=== PATIENT | female | born 1965 | race Caucasian/White ===

== ENCOUNTER 2016-12-07 12:13 | Day surgery (SDC) | payer OTHER ==
[2016-12-07 12:28] VITALS: BP 144/82; PULSE 71; RESP 20; TEMP 97.6
[2016-12-07] MEDS ORDERED: ALPRAZolam 0.5 MG TAB PO STA (12:32)
--- NOTE | 2016-12-08 11:25 | US ---
ULTRASOUND GUIDED FNA THYROID BIOPSY: CLINICAL HISTORY: 1.4 cm left thyroid nodule FINDINGS: The procedure was explained to the patient. The risks, complications, benefits and alternatives were discussed and any questions were answered. Informed consent was obtained. Patient was placed supin e on the ultrasound table and prepped and draped in the usual sterile fashion. Utilizing a 25 gauge needle, five passes were made into the requested left thyroid nodule. Patient was stable throughout the procedure. Pathology is pending. All elements of maximal barrier technique were utilized. IMPRESSION: 1. Successful ultrasound guided FNA thyroid biopsy.
== END 2016-12-07 13:40 | disposition home or self-care (01) ==
LOC: RADPROMAIN 12:13
PROVIDERS: ATTEND Surgery
DX: E07.9 Disorder of thyroid, unspecified (principal)
CPT/HCPCS: 10022; 76942; 88173; 88305

== ENCOUNTER → 2017-07-03 | Outpatient (CLI) | payer OTHER ==
--- NOTE | 2017-07-03 12:56 | US ---
EXAMINATION TYPE: US thyroid st tissue head/neck DATE OF EXAM: 07/03/2017 COMPARISON: NONE CLINICAL HISTORY: E04.1 Thyroid nodule. follow up exam, previous FNA GLAND SIZE: Right Lobe: 4.5 x 1.2 x 1.8 cm Overall Parenchyma: homogenous Left Lobe: 4.5 x 1.5 x 1.1 cm Overall Parenchyma: homogeneous Isthmus Thickness: 0.3 cm NODULES RIGHT: # of nodules measured on right: 1 1. 0.6 X 0.5 x 0.3 cm hypoechoic mixed nodule at the upper pole with well-defined margins. This no dule is wider than tall and shows intranodular vascularity. 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 1.0 X 0.9 x 0.5 cm mixed nodule at the mid pole with well-defined margins. This nodule is wider than tall and shows intranodular vascularity. Prior size: 1.3cm - previous FNA 11/2016 ISTHMUS: # of nodules measured in the isthmus: 0 Bilateral neck scanned, no evidence of lymphadenopathy. Thyroid gland is overall normal in size and homogeneous in appearance with redemonstration of solid a nd cystic nodule left thyroid that was aspirated December 07, 2016. No new nodules are seen. IMPRESSION: Previously aspirated mixed left thyroid nodule slightly smaller in size. No new greater than 1 cm rayne id or cystic nodules are evident bilaterally.
== END | disposition home or self-care (01) ==
LOC: RADUSWWP 12:11
PROVIDERS: ATTEND Surgery
DX: E04.1 Nontoxic single thyroid nodule (principal)
CPT/HCPCS: 76536

== ENCOUNTER → 2017-08-11 | Outpatient (CLI) | payer OTHER ==
--- NOTE | 2017-08-11 09:28 | NM ---
Nuclear medicine hepatobiliary scan. HISTORY: Pain. DOSAGE: The patient received 8 ounces of ensure plus and 5.2 mCi of Technetium 99m Choletec. FINDINGS: There is normal hepatic extraction. The gallbladder is seen by 35 minutes. There is bilia ry to bowel clearance by 20 minutes. Ejection fraction is 42%. IMPRESSION: 1. Borderline normal ejection fraction of 42%. Correlate clinically. 2. Normal filling of the gallbladder.
== END | disposition home or self-care (01) ==
LOC: RADNMMAIN 06:48
PROVIDERS: ATTEND Family Medicine
DX: R10.11 Right upper quadrant pain (principal)
CPT/HCPCS: 78226; A9537

== ENCOUNTER 2017-09-20 12:06 | Observation (INO) | payer OTHER ==
[2017-08-29 15:29] VITALS: BMI 22.8
[~2017-09-20 12:06] MED LIST: DEXAMETHASONE SOD PHOSPHATE 10 MG/ML 1 ML VIAL IV ONE; HEPARIN SODIUM,PORCINE 5,000 UNIT/ML 1 ML VIAL SQ ONE; MORPHINE SULFATE 4 MG/ML SYRINGE IV PRN; ONDANSETRON ODT 4 MG TAB PO ONE; ceFAZolin IN SWFI 2 GM/20 ML SYRINGE IVP ONE
[2017-09-20] MEDS ORDERED: RX INFO: IV CONTRAST WAS GIVEN 1 EACH MISC MISCELLANE PRN (12:58)
[2017-09-20] MEDS: LACTATED RINGERS 1,000 ML IV SCH (13:00)
[2017-09-20] MEDS ORDERED: LIDOCAINE 1% 20 ML VIAL (10MG/ML) FOR IV START INTRADERMA ONE (13:00)
[2017-09-20 13:30] LABS: ALT 23 U/L (9-52); AST 27 U/L (14-36); Albumin 4.2 g/dL (3.5-5.0); Alkaline Phosphatase 85 U/L (38-126); Anion Gap 12 mmol/L; Blood Urea Nitrogen 14 mg/dL (7-17); Carbon Dioxide 25 mmol/L (22-30); Chloride 108 mmol/L (98-107); Glucose 98 mg/dL (74-99); Potassium 4.7 mmol/L (3.5-5.1); Sodium 145 mmol/L (137-145); Total Bilirubin 0.5 mg/dL (0.2-1.3); Total Protein 6.7 g/dL (6.3-8.2)
--- NOTE | 2017-09-20 13:38 | P.PN ---
Progress Note - Text Progress Note Date: 09/20/17 The patient was scheduled for laparoscopic cholecystectomy today. The patient stated that she had some confusion and slurred speech at home. The patient's procedure was canceled in the preoperative hold area. Patient underwent workup for a stroke with a CAT scan. She'll be admitted to Dr. pratt service for further evaluation.
[2017-09-20 13:42] LABS: Creatine Kinase 64 U/L (30-135)
--- NOTE | 2017-09-20 13:46 | CT ---
EXAMINATION TYPE: CT brain wo con for TPA DATE OF EXAM: 09/20/2017 COMPARISON: 01/22/2013 HISTORY: Unsteady gait. Slurred speech. CT DLP: 1072.3 mGycm Automated exposure control for dose reduction was used. TECHNIQUE: CT scan of the head is performed without contrast. FINDINGS: There is no acute intracranial hemorrhage, mass effect, or midline shift identified. No suspicious e xtra-axial fluid collection. The ventricles and sulci are within normal limits in size. The globes a re intact. 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 Remaining paranasal sinuses are well aerate d. Incidental note is made of nonocclusive cerumen within the left external auditory canal. Atheroscl erosis is also seen of the intracranial vasculature. IMPRESSION: No acute intracranial process. MRI could be performed for further assessment given the patient's clin ical symptoms.
[2017-09-20 13:56] LABS: Troponin I <0.012 ng/mL (0.000-0.034)
[2017-09-20 13:59] LABS: Creatine Kinase MB 0.5 ng/mL (0.0-2.4)
--- NOTE | 2017-09-20 14:20 | CT ---
EXAMINATION TYPE: CODE STROKE: CTA head neck DATE OF EXAM: 09/20/2017 HISTORY: Unsteady gait and weakness. History of stroke COMPARISON: NONE CT DLP: 221.8 mGycm. Automated Exposure Control for Dose Reduction was Utilized. TECHNIQUE: CTA scan of the neck is performed with IV Contrast, patient injected with 65 mL of Isovue 370, axial images are obtained, coronal and sagittal reformatted images are reviewed. Three-D recons tructed images are created on an independent workstation and reviewed. FINDINGS: Carotid/Vascular Structures: The carotid origins, common carotid arteries, internal carotid arteries, and carotid bulbs are patent without hemodynamically significant stenosis. There is no evidence of f ocal outpouching or dissection. Vertebral arteries are also patent with dominance of the right verteb ral artery. Minimal nonhemodynamically significant plaquing is seen within the cavernous and supraclinoid portion s of the internal carotid arteries. The middle cerebral arteries, anterior cerebral arteries, and pos terior cerebral arteries are unremarkable. No evidence of large vessel vascular occlusion on the righ t. No focal aneurysmal outpouching is seen. No arterial venous malformation is identified. And the M1 segment there is an area of focal stenosis with diminutive flow although the distal branch es appear opacified there is preferential flow on the right in comparison to the left. Diminutive rissa w is seen on series 4 images 14-17. Other: Mild to moderate centrilobular emphysematous changes are seen at the lung apices. Within the c entral posterior nasopharynx there is a low attenuated structure measuring 1.4 x 1.0 cm. 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 IMPRESSION: 1. Focal stenosis of the M1 segment on the left appearing incompletely occlusive as there is very min imal diminutive flow seen with opacification of the distal branches although opacification is less wi thin the left hemisphere than the right hemisphere in the distal branches of the MCA. 2. 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 Direct visualization could be performed.
[2017-09-20 14:57] LABS: Basophils % (A) 0 %; Eosinophils # (A) 0.1 k/uL (0-0.7); Eosinophils % (A) 2 %; HCT 39.5 % (34.0-46.0); HGB 12.6 gm/dL (11.4-16.0); Lymphocytes # (A) 2.2 k/uL (1.0-4.8); Lymphocytes % (A) 37 %; MCV 90.7 fL (80.0-100.0); Mean Platelet Volume 7.9; Monocytes # (A) 0.3 k/uL (0-1.0); Monocytes % (A) 6 %; Neutrophils # (A) 3.2 k/uL (1.3-7.7); Neutrophils % (A) 53 %; Platelet Count 165 k/uL (150-450); RBC 4.35 m/uL (3.80-5.40); RDW 13.4 % (11.5-15.5)
[2017-09-20 14:58] LABS: Prothrombin Time 10.1 sec (9.0-12.0)
[2017-09-20] MEDS: HYDROcodone/APAP 10-325MG 1 EACH TAB PO PRN ×2 (16:28→21:47)
--- NOTE | 2017-09-20 17:15 | P.GSCN ---
History of Present Illness Consult date: 09/20/17 History of present illness: This a 52-year-old female who was rigid scheduled for laparoscopic cholecystectomy today. The patient mentioned preop that she thought she may have slurred some word this morning. Her seizure was canceled and the patient was evaluated for possible stroke. The patient's CAT scan of the brain is normal. She appears to be her normal self currently. She has no evidence of any neurologic weakness. She is alert and orientated 3. Past Medical History Past Medical History: CVA/TIA, GERD/Reflux, Hyperlipidemia, Seizure Disorder, Thyroid Disorder, Vascular Disorder Additional Past Medical History / Comment(s): CVA "several last march", Chronic back pain,. last seizure 04/14,PVD,"lt cerebral artery 100%" 09/20/17 PT STATES THIS AM GAIT SL UNSTEADY WALKED INTO A WALL SPEECH WAS NOT NORMAL THIS AM WORDS NOT COMING OUT RIGHT NO HEADACHE BUT HEAD FEELS A LITTLE FOGGY History of Any Multi-Drug Resistant Organisms: None Reported Past Surgical History: No Surgical Hx Reported Additional Past Surgical History / Comment(s): stents merly iliac artery 07/16. EGD Past Anesthesia/Blood Transfusion Reactions: Family History of Problems w/ Anesthesia Additional Past Anesthesia/Blood Transfusion Reaction / Comm: sister shakes with anesthesia for several days after Past Psychological History: Anxiety, Depression Smoking Status: Current every day smoker Past Alcohol Use History: Rare Additional Past Alcohol Use History / Comment(s): smoker for 30 years attempting to quit smoking 4 cig/d Past Drug Use History: Marijuana Additional Drug Use History / Comment(s): rare marijuana use- INSTRUCTED TO REFRAIN FROM USE FOR AT LEAST 24 HOURS PRIOR TO PROCEDURE - Past Family History Father Family Medical History: Cancer Additional Family Medical History / Comment(s): lung cancer Mother Family Medical History: Cancer, CVA/TIA Sister(s) Family Medical History: Cancer, Deep Vein Thrombosis (DVT), Pulmonary Embolus Additional Family Medical History / Comment(s): breast cancer Brother(s) Family Medical History: Cancer Additional Family Medical History / Comment(s): prostate cancer Medications and Allergies Home Medications Medication Instructions Recorded Confirmed Type Aspirin 81 mg PO DAILY 11/24/16 09/20/17 History Atorvastatin [Lipitor] 80 mg PO DAILY 11/24/16 09/20/17 History Clopidogrel [Plavix] 75 mg PO BID 11/24/16 09/20/17 History HYDROcodone/APAP 10-325MG [[place] 1 tab PO Q6H PRN 11/24/16 09/20/17 History 10-325] Ranitidine HCl [Zantac] 150 mg PO BID 11/24/16 09/20/17 History levETIRAcetam [Keppra] 500 mg PO Q12HR 11/24/16 09/20/17 History Docusate [Colace] 100 mg PO BID #20 capsule 09/20/17 Rx HYDROcodone/APAP 7.5-325MG [[place] 1 each PO Q4H PRN #30 tab 09/20/17 Rx 7.5] Allergies Allergy/AdvReac Type Severity Reaction Status Date / Time prochlorperazine Allergy Unknown Verified 09/20/17 14:19 [From Compazine] Surgical - Exam Vital Signs Temp Pulse Resp BP Pulse Ox 97.5 F L 73 18 141/84 99 09/20/17 12:35 09/20/17 12:35 09/20/17 12:35 09/20/17 12:35 09/20/17 12:35 - General well developed, no distress - Eyes PERRL - ENT normal pinna - Neck no masses - Respiratory normal expansion - Cardiovascular Rhythm: regular - Abdomen Abdomen: soft, non tender Results - Labs 09/20/17 14:33 09/20/17 13:02 Abnormal Lab Results - Last 24 Hours (Table) 09/20/17 Range/Units 13:02 Chloride 108 H (98-107) mmol/L Diabetes panel 09/20/17 Range/Units 13:02 Sodium 145 (137-145) mmol/L Potassium 4.7 (3.5-5.1) mmol/L Chloride 108 H (98-107) mmol/L Carbon Dioxide 25 (22-30) mmol/L BUN 14 (7-17) mg/dL Creatinine 0.60 (0.52-1.04) mg/dL Glucose 98 (74-99) mg/dL Calcium 10.0 (8.4-10.2) mg/dL AST 27 (14-36) U/L ALT 23 (9-52) U/L Alkaline Phosphatase 85 (38-126) U/L Total Protein 6.7 (6.3-8.2) g/dL Albumin 4.2 (3.5-5.0) g/dL Calcium panel 09/20/17 Range/Units 13:02 Calcium 10.0 (8.4-10.2) mg/dL Albumin 4.2 (3.5-5.0) g/dL Pituitary panel 09/20/17 Range/Units 13:02 Sodium 145 (137-145) mmol/L Potassium 4.7 (3.5-5.1) mmol/L Chloride 108 H (98-107) mmol/L Carbon Dioxide 25 (22-30) mmol/L BUN 14 (7-17) mg/dL Creatinine 0.60 (0.52-1.04) mg/dL Glucose 98 (74-99) mg/dL Calcium 10.0 (8.4-10.2) mg/dL Adrenal panel 09/20/17 Range/Units 13:02 Sodium 145 (137-145) mmol/L Potassium 4.7 (3.5-5.1) mmol/L Chloride 108 H (98-107) mmol/L Carbon Dioxide 25 (22-30) mmol/L BUN 14 (7-17) mg/dL Creatinine 0.60 (0.52-1.04) mg/dL Glucose 98 (74-99) mg/dL Calcium 10.0 (8.4-10.2) mg/dL Total Bilirubin 0.5 (0.2-1.3) mg/dL AST 27 (14-36) U/L ALT 23 (9-52) U/L Alkaline Phosphatase 85 (38-126) U/L Total Protein 6.7 (6.3-8.2) g/dL Albumin 4.2 (3.5-5.0) g/dL Assessment and Plan Assessment: Chronic cholecystitis. Patient will be evaluated by the medical service. If she is cleared she will undergo laparoscopic cholecystectomy in the a.m.
--- NOTE | 2017-09-20 17:37 | P.HPIM ---
History of Present Illness H&P Date: 09/20/17 Micki Tsang is a 52 year old female patient of Dr Kiera Porter, who presented to [facility] for elective surgery for laparoscopic cholecystectomy on 09/20/[address] Joseph, prior to surgery however patient notified the staff in the preoperative area that this morning she had an episode of slurred speech with difficulty getting words out, dizziness, and bouncing with her gait, surgery was canceled, code stroke was started, patient underwent computed tomography scan of the brain and was admitted to telemetry floor for further evaluation. 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 Patient also stated that she started having seizures 5 years ago, her last seizure was one year ago, she is maintained on Keppra for that. Patient has known history of hyperlipidemia and she is maintained on Lipitor 80 mg once daily. She is also a smoker she smokes less than a pack a day she states that she started smoking at the teenager. Past Medical History Past Medical History: CVA/TIA, GERD/Reflux, Hyperlipidemia, Seizure Disorder, Thyroid Disorder, Vascular Disorder Additional Past Medical History / Comment(s): CVA "several last march", Chronic back pain,. last seizure 04/14,PVD,"lt cerebral artery 100%" 09/20/17 PT STATES THIS AM GAIT SL UNSTEADY WALKED INTO A WALL SPEECH WAS NOT NORMAL THIS AM WORDS NOT COMING OUT RIGHT NO HEADACHE BUT HEAD FEELS A LITTLE FOGGY History of Any Multi-Drug Resistant Organisms: None Reported Past Surgical History: No Surgical Hx Reported Additional Past Surgical History / Comment(s): stents merly iliac artery 07/16. EGD Past Anesthesia/Blood Transfusion Reactions: Family History of Problems w/ Anesthesia Additional Past Anesthesia/Blood Transfusion Reaction / Comment(s): sister shakes with anesthesia for several days after Past Psychological History: Anxiety, Depression Smoking Status: Current every day smoker Past Alcohol Use History: Rare Additional Past Alcohol Use History / Comment(s): smoker for 30 years attempting to quit smoking 4 cig/d Past Drug Use History: Marijuana Additional Drug Use History / Comment(s): rare marijuana use- INSTRUCTED TO REFRAIN FROM USE FOR AT LEAST 24 HOURS PRIOR TO PROCEDURE - Past Family History Father Family Medical History: Cancer Additional Family Medical History / Comment(s): lung cancer Mother Family Medical History: Cancer, CVA/TIA Sister(s) Family Medical History: Cancer, Deep Vein Thrombosis (DVT), Pulmonary Embolus Additional Family Medical History / Comment(s): breast cancer Brother(s) Family Medical History: Cancer Additional Family Medical History / Comment(s): prostate cancer Medications and Allergies Home Medications Medication Instructions Recorded Confirmed Type Aspirin 81 mg PO DAILY 11/24/16 09/20/17 History Atorvastatin [Lipitor] 80 mg PO DAILY 11/24/16 09/20/17 History Clopidogrel [Plavix] 75 mg PO BID 11/24/16 09/20/17 History HYDROcodone/APAP 10-325MG [[place] 1 tab PO Q6H PRN 11/24/16 09/20/17 History 10-325] Ranitidine HCl [Zantac] 150 mg PO BID 11/24/16 09/20/17 History levETIRAcetam [Keppra] 500 mg PO Q12HR 11/24/16 09/20/17 History Docusate [Colace] 100 mg PO BID #20 capsule 09/20/17 Rx HYDROcodone/APAP 7.5-325MG [[place] 1 each PO Q4H PRN #30 tab 09/20/17 Rx 7.5] Allergies Allergy/AdvReac Type Severity Reaction Status Date / Time prochlorperazine Allergy Unknown Verified 09/20/17 14:19 [From Compazine] Physical Exam Vitals: Vital Signs Temp Pulse Resp BP Pulse Ox 09/20/17 16:00 71 18 09/20/17 13:54 97.1 F L 71 18 140/81 98 09/20/17 12:43 76 18 143/88 99 09/20/17 12:35 97.5 F L 73 18 141/84 99 Intake and Output 09/20/17 09/20/17 09/20/17 06:59 14:59 22:59 Output Total 300 Balance -300 Output: Urine 300 Other: Weight 56.699 kg In general patient is alert and oriented 3 in no apparent distress HEENT head normocephalic and atraumatic Neck is supple no JVD no goiter no lymphadenopathy no carotid bruit Chest exam reveals a few scattered crackles no wheezing Cardiac exam reveals regular heart sounds S1 and S2 no gallops no murmurs Abdomen is soft nontender no organomegaly with normal bowel sounds Extremity exam reveals no edema no cyanosis or clubbing Neurological examination reveals no gross focal deficit at this time Mental status patient is alert and oriented 3 cranial nerve II-12 are intact there is no focal sensory or motor deficit at this time speech is fluent Results CBC & Chem 7: 09/20/17 14:33 09/20/17 13:02 Labs: Abnormal Lab Results - Last 24 Hours (Table) 09/20/17 Range/Units 13:02 Chloride 108 H (98-107) mmol/L Thrombosis Risk Factor Assmnt - Choose All That Apply Each Factor Represents 1 point: Age 41-60 years, Minor surgery planned Each Risk Factor Represents 2 Points: Laparoscopic surgery Each Risk Factor Represents 3 Points: Family history of DVT/PE Thrombosis Risk Factor Assessment Total Risk Factor Score: 7 Thrombosis Risk Factor Assessment Level: High Risk Assessment and Plan Plan: #1 transient ischemic attack with symptoms of slurred speech and unsteady gait lasting about 1 minute this morning #2 underlying history of partially occluded intracranial artery, CT angiogram was done today and reveals stenosis in the M1 segments on the left, patient follows with neurosurgery in [place] every 6 months for this condition, and she was told that there is no intervention at amenable for that. #3 underlying history of seizure disorder maintained on Keppra #4 tobacco abuse patient was counseled in length to quit smoking #5 hyperlipidemia maintained on Lipitor 80 mg daily continue #6 cholecystitis patient presented for laparoscopic cholecystectomy, this is delayed at this time until she is cleared by neurology At this time will continue patient on aspirin and Lipitor Will continue his Keppra for seizure disorder Will monitor on telemetry to rule out atrial fibrillation Will check echo cardiogram Awaiting neurology input
[2017-09-20] MEDS: levETIRAcetam 500 MG TAB PO SCH (19:58)
[2017-09-20] MEDS: FAMOTIDINE 20 MG TAB PO SCH (19:58)
[2017-09-20] MEDS: CLOPIDOGREL 75 MG TAB PO SCH (20:04)
--- NOTE | 2017-09-20 21:07 | P.CNNES ---
History of Present Illness Consult date: 09/20/17 Reason for Consult: Patient with acute onset slurred speech and TIA vs. stroke. History of Present Illness: This patient is a 52-year-old right-handed white female who is being followed in the outpatient internal medicine clinic by Dr. Porter. Patient has known history of multiple complex medical issues including history of stroke and intracerebral vascular occlusive disease. Patient also has history of underlying seizure disorder. She has been taking Keppra monotherapy. Patient apparently was scheduled for an elective cholecystectomy procedure this morning. She awoke as usual in the morning at about 8 AM and was noted as having difficulty with weakness as well as balance issues. She also tried to talk and noticed that she was having slurring of her speech. She had word finding difficulties as well. She was able to contact family members who noted that she was having clearly some slurring of her speech. She was unable to ambulate and was bouncing into the balls at home. The patient had been taking Plavix and aspirin on a regular basis but due to scheduled surgery today she discontinued both of these medications for the past 7 days. She decided to have her family member bring her to the hospital for the scheduled surgery today. Apparently in the preop area she did mention to the nursing staff there that her symptoms occurred early this morning including dizziness, unsteady gait , and slurred speech. Apparently she was also noted to have left facial droop. At this time a code stroke was initiated and she was sent for any emergent computed tomography scan of the brain and CTA angiogram of the head and neck. Computed tomography scan of the brain revealed no acute intracranial process. There is no evidence of acute stroke. CTA angiogram of the head and neck revealed focal stenosis of the M1 segment on the left MCA artery. It was incompletely occlusive. There was diminished flow and opacification in the distal branches left being less than the right hemisphere. There was also low density structure in the posterior nasopharynx suggesting possibility of a Thornwaldt cyst. We did review the results of her CAT scan of the brain as well as a CTA angiogram. The patient estimates this morning her symptoms of TIA had lasted at least 4-5 hours. In fact while coming into the hospital for her elective cholecystectomy she is still had slurring of her speech in [place]. The code stroke was initiated and her scheduled laparoscopic cholecystectomy was canceled. The patient does follow with a neurosurgeon in [place] every [address] Arenas. She is being followed closely for her known intracranial stenotic lesion. She is not felt to be a surgical candidate. She also has a history of underlying seizure disorder for which she has been taking Keppra for the past many years. She is currently on Keppra 500 mg twice a day. We have recommended a Keppra blood level to be done for her tomorrow morning. We will also obtain a routine EEG. Her clinical findings do not suggest her symptoms today were related to seizure disorder. Her clinical history is suggesting more definitive findings for TIA. Her speech is much improved at this time. The clearly her onset and duration of symptoms this morning lasted over 4-5 hours. Given this finding of recent TIA and known history of intracranial arteriosclerotic stenosis and lesion we are recommending that her planned elective cholecystectomy procedure be canceled and placed on hold until she is reevaluated by her neurosurgeon in [place] for his further recommendations. Given this acute TIA findings today she should consider restarting her Plavix immediately as we are recommending her planned cholecystectomy procedure be placed on hold at this time until she is seen by her neurosurgeon in [place] in the next 1-2 weeks. The patient was very resistant about restarting Plavix at this time stating that she would like to get the procedure over that she has been off of Plavix and aspirin for 7 days. Clearly her being off of the antiplatelet agents and dual platelet therapy with aspirin has increased her risk of TIA today. We would recommend she be restarted on both Plavix and aspirin today and to discuss with her neurosurgeon whether I reattempt to take her off of the antiplatelet agents can be done at a later time. Her neurological examination at this time reveals her to have clear speech with no focal motor weakness. As noted her CAT scan of the brain was negative. We have discussed our current neurological findings in detail with the patient. She was advised to follow-up with her neurosurgeon in [place] as soon as she is discharged from the hospital. This case was also discussed today at length with Dr. Dr. Coburn who is seen admitting physician for this patient today. He is in full agreement with our current recommendations and to postpone any surgical intervention for cholecystectomy for this patient at this time. Nursing staff has been advised to notify Dr. Quarles office today of our recommendations to postpone any elective surgery for this patient until she is reevaluated by her neurosurgeon in [place]. We have given orders for the nursing staff to restart the patient tonight on Plavix 75 mg daily as well as one baby aspirin 81 mg daily. Neurology is now been consulted for further evaluation and recommendations. Review of Systems Constitutional: Denies chills, Denies fever Eyes: denies blurred vision, denies pain Ears, nose, mouth and throat: Denies headache, Denies sore throat Cardiovascular: Denies chest pain, Denies shortness of breath Respiratory: Denies cough Gastrointestinal: Denies abdominal pain, Denies diarrhea, Denies nausea, Denies vomiting Genitourinary: Denies dysuria, Denies hematuria Musculoskeletal: Denies myalgias Integumentary: Denies pruritus, Denies rash Neurological: Reports aphasia, Reports change in mentation, Reports change in speech, Reports confusion, Reports motor disturbance, Reports paresthesias, Reports tingling, Denies numbness, Denies weakness Psychiatric: Denies anxiety, Denies depression Endocrine: Denies fatigue, Denies weight change Past Medical History Past Medical History: CVA/TIA, GERD/Reflux, Hyperlipidemia, Seizure Disorder, Thyroid Disorder, Vascular Disorder Additional Past Medical History / Comment(s): CVA "several last march", Chronic back pain,. last seizure 04/14,PVD,"lt cerebral artery 100%" 09/20/17 PT STATES THIS AM GAIT SL UNSTEADY WALKED INTO A WALL SPEECH WAS NOT NORMAL THIS AM WORDS NOT COMING OUT RIGHT NO HEADACHE BUT HEAD FEELS A LITTLE FOGGY History of Any Multi-Drug Resistant Organisms: None Reported Past Surgical History: No Surgical Hx Reported Additional Past Surgical History / Comment(s): stents merly iliac artery 07/16. EGD Past Anesthesia/Blood Transfusion Reactions: Family History of Problems w/ Anesthesia Additional Past Anesthesia/Blood Transfusion Reaction / Comment(s): sister shakes with anesthesia for several days after Past Psychological History: Anxiety, Depression Smoking Status: Current every day smoker Past Alcohol Use History: Rare Additional Past Alcohol Use History / Comment(s): smoker for 30 years attempting to quit smoking 4 cig/d Past Drug Use History: Marijuana Additional Drug Use History / Comment(s): rare marijuana use- INSTRUCTED TO REFRAIN FROM USE FOR AT LEAST 24 HOURS PRIOR TO PROCEDURE - Past Family History Father Family Medical History: Cancer Additional Family Medical History / Comment(s): lung cancer Mother Family Medical History: Cancer, CVA/TIA Sister(s) Family Medical History: Cancer, Deep Vein Thrombosis (DVT), Pulmonary Embolus Additional Family Medical History / Comment(s): breast cancer Brother(s) Family Medical History: Cancer Additional Family Medical History / Comment(s): prostate cancer Medications and Allergies Home Medications Medication Instructions Recorded Confirmed Type Aspirin 81 mg PO DAILY 11/24/16 09/20/17 History Atorvastatin [Lipitor] 80 mg PO DAILY 11/24/16 09/20/17 History Clopidogrel [Plavix] 75 mg PO BID 11/24/16 09/20/17 History HYDROcodone/APAP 10-325MG [[place] 1 tab PO Q6H PRN 11/24/16 09/20/17 History 10-325] Ranitidine HCl [Zantac] 150 mg PO BID 11/24/16 09/20/17 History levETIRAcetam [Keppra] 500 mg PO Q12HR 11/24/16 09/20/17 History Docusate [Colace] 100 mg PO BID #20 capsule 09/20/17 Rx HYDROcodone/APAP 7.5-325MG [[place] 1 each PO Q4H PRN #30 tab 09/20/17 Rx 7.5] Allergies Allergy/AdvReac Type Severity Reaction Status Date / Time prochlorperazine Allergy Unknown Verified 09/20/17 14:19 [From Compazine] Physical Examination - Vital Signs Vital Signs: Vital Signs Temp Pulse Resp BP Pulse Ox 09/20/17 16:00 71 18 09/20/17 13:54 97.1 F L 71 18 140/81 98 09/20/17 12:43 76 18 143/88 99 09/20/17 12:35 97.5 F L 73 18 141/84 99 Intake and Output 09/20/17 09/20/17 09/20/17 06:59 14:59 22:59 Output Total 300 Balance -300 Output: Urine 300 Other: Weight 56.699 kg - Constitutional General appearance: average body habitus, cooperative - EENT EENT: PERRL, mucous membranes moist - Respiratory Respiratory: lungs clear, normal breath sounds - Cardiovascular Cardiovascular: regular rate, normal S1, normal S2 Extremities: no peripheral edema bilaterally - Gastrointestinal Gastrointestinal: normoactive bowel sounds - Integumentary Integumentary: normal - Neurologic Cranial nerve examination: PERRL, EOMI, VFF, V1/V2/V3 grossly intact, face symmetric, tongue midline, intact gag reflex, intact corneal reflex, normal palatal elevation Speech examination: intact Sensorimotor examination: intact Motor examination - right side: 4/5: biceps, triceps, wrist flexion, wrist extension, software engineer, hip flexors, knee extensors, dorsiflexion, toe extension (EHL) , plantarflexion Motor examination - left side: 4/5: biceps, triceps, wrist flexion, wrist extension, software engineer, hip flexors, knee extensors, dorsiflexion, toe extension (EHL) , plantarflexion Detailed sensory examination: intact Reflex and gait examination: intact Reflexes: 1+: ankle, bicep, knee, tricep - Musculoskeletal Musculoskeletal: no pain - Psychiatric Psychiatric: mood/affect appropriate, cooperative Results - Laboratory Findings CBC and BMP: 09/20/17 14:33 09/20/17 13:02 Abnormal Lab Findings: Abnormal Labs 09/20/17 13:02 Chloride 108 H Assessment and Plan (1) TIA (transient ischemic attack) Current Visit: Yes Status: Acute Code(s): G45.9 - TRANSIENT CEREBRAL ISCHEMIC ATTACK, UNSPECIFIED SNOMED Code(s): 364733809 (2) Intracranial arteriopathy, chronic Current Visit: Yes Status: Acute Code(s): I77.9 - DISORDER OF ARTERIES AND ARTERIOLES, UNSPECIFIED SNOMED Code(s): 533396585 (3) Seizure disorder Current Visit: Yes Status: Acute Code(s): G40.909 - EPILEPSY, UNSP, NOT INTRACTABLE, WITHOUT STATUS EPILEPTICUS SNOMED Code(s): 666182510 (4) Cholecystitis Current Visit: Yes Status: Acute Code(s): K81.9 - CHOLECYSTITIS, UNSPECIFIED SNOMED Code(s): 07555005 Plan: This patient is a 52-year-old female who awoke early this morning with symptoms of acute and recurrent TIA. Patient had symptoms of slurred speech, dizziness, and unsteady gait. Her entire symptoms lasted at least 4-5 hours this morning. She had been off of Plavix and aspirin for 7 days in anticipation of elective endoscopic cholecystectomy procedure to be done today. She was in the admitting office and in the preop holding area when she had mentioned her symptoms to the nursing staff. She was complaining of some slurred speech just prior to coming to the hospital. Her clinical history that she is given clearly indicates she was having symptoms of TIA for at least 4-5 hours. Her planned elective cholecystectomy procedure was canceled. A code stroke was initiated and she was sent for a computed tomography scan of the brain and CTA angiogram of the head and neck. Both of these studies were reviewed and results are as noted above. We have recommended the patient to cancel any planned elective cholecystectomy procedure at this time. She is to follow-up with her neurosurgeon in [place] who is monitoring her known history of intracranial arterial stenotic lesion. She has been off of Plavix and aspirin and this may have contributed today to her TIA symptoms. She has had history of recurrent TIAs over the last 1 year. We would recommend that the planned surgery be canceled at this time and the patient should be restarted on Plavix and aspirin today for secondary stroke prevention. Case was discussed today with Dr. Coburn her admitting physician who is in full agreement with our current recommendations. Patient should follow-up with her neurosurgeon in [place] in regards to when or if she is capable of having surgical procedure coming off of her antiplatelet agents. We will continue close neurological follow-up for the patient. We will check her Keppra level tomorrow as well. Once again we are recommending she be restarted on Plavix and aspirin tonight and she should follow-up with her neurosurgeon in [place] soon after discharge from the hospital for his further evaluation and recommendations. Her overall prognosis at this time remains very guarded. Time with Patient: Greater than 30
[2017-09-21] MEDS: HYDROcodone/APAP 10-325MG 1 EACH TAB PO PRN ×2 (04:04→10:53)
[2017-09-21 06:46] LABS: Cholesterol 208 mg/dL (<200); HDL Cholesterol 58 mg/dL (40-60); LDL Cholesterol,Calculated 135 mg/dL (0-99); Triglycerides 75 mg/dL (<150)
[2017-09-21] MEDS: FAMOTIDINE 20 MG TAB PO SCH (07:51)
[2017-09-21] MEDS: levETIRAcetam 500 MG TAB PO SCH (07:51)
[2017-09-21] MEDS: LACTATED RINGERS 1,000 ML IV SCH (07:52)
[2017-09-21] MEDS ORDERED: ATORVASTATIN 80 MG TAB PO SCH (09:00)
[2017-09-21] MEDS: ASPIRIN 81 MG PO SCH ×2 (10:00→10:53)
[2017-09-21] MEDS: CLOPIDOGREL 75 MG TAB PO SCH ×2 (10:00→10:53)
[2017-09-21 12:51] VITALS: BP 110/60; PULSE 67; RESP 16; TEMP 98.2
--- NOTE | 2017-09-21 13:40 | P.DS ---
Providers Date of admission: 09/20/17 13:49 Expected date of discharge: 09/21/17 Attending physician: Felipe Coburn Consults: 09/20/17 14:12 Consult Physician Stat Consulting Provider: Carlos Quarles Consult Reason/Comments: surgery Do you want consulting provider notified?: Yes 09/20/17 14:13 Consult Physician Stat Consulting Provider: Tom Geiger Consult Reason/Comments: code stroke Do you want consulting provider notified?: Yes Primary care physician: Kiera Porter [place] [facility] Course: #1 transient ischemic attack with symptoms of slurred speech and unsteady gait lasting about 1 minute this morning. Patient will need echo and outpatient setting #2 underlying history of partially occluded intracranial artery, CT angiogram was done today and reveals stenosis in the M1 segments on the left, patient follows with neurosurgery in [place] every 6 months for this condition, and she was told that there is no intervention at [facility] for that. #3 underlying history of seizure disorder maintained on Keppra #4 tobacco abuse patient was counseled in length to quit smoking for greater than 10 minutes #5 hyperlipidemia maintained on Lipitor 80 mg daily continue #6 cholecystitis patient presented for laparoscopic cholecystectomy: Surgery canceled because of TIA Hospital course Micki Tsang is a 52 year old female patient of Dr Kiera Porter, who presented to [facility] for elective surgery for laparoscopic cholecystectomy on 09/20/[address] Joseph, prior to surgery however patient notified the staff in the preoperative area that this morning she had an episode of slurred speech with difficulty getting words out, dizziness, and bouncing with her gait, surgery was canceled, code stroke was started, patient underwent computed tomography scan of the brain and was admitted to telemetry floor for further evaluation. Patient states that she had multiple TIAs in the past this started 5 years ago, she also had multiple seizures in the past, she was evaluated by neurology and neurosurgery, she states that she had a partially occluded artery in her brain, for which she follows with the neurosurgeon in [place], who told her that there is no intervention and [facility] for her condition, and that she had developed some collaterals, she continues to follow was neurosurgeon every 6 month. Patient also stated that she started having seizures 5 years ago, her last seizure was one year ago, she is maintained on Keppra for that. Patient has known history of hyperlipidemia and she is maintained on Lipitor 80 mg once daily. She is also a smoker she smokes less than a pack a day she states that she started smoking at the teenager. Patient was seen evaluated by Dr. Geiger, the neurologist. He is recommending that patient be restarted on her aspirin and Plavix for secondary stroke prevention. Is likely patient had a TIA because she was taken off of the aspirin and Plavix. At this time he is also recommending that surgery be canceled. Patient understands the risks that she could have a stroke. Neurology is recommending that patient follow-up with her neurosurgeon in [place] and soon after discharge from the hospital for further evaluation and recommendations. Patient is stable. Her symptoms have resolved. She also will follow-up with Dr. Ortiz in 1 week. We'll have her follow-up with her PCP in 1 week. Also note that patient does need an echo completed in the outpatient setting. I performed an examination of the patient and discussed their management with the physician Twister Frame Tender. I have reviewed the Physician Twister Frame Tender's notes and agree with the documented findings and plan of care Patient Condition at Discharge: Stable Plan - Discharge Summary Discharge Rx Participant: Yes New Discharge Prescriptions: New Docusate [Colace] 100 mg PO BID #20 capsule HYDROcodone/APAP 7.5-325MG [[place] 7.5] 1 each PO Q4H PRN #30 tab PRN Reason: Pain Continue Ranitidine HCl [Zantac] 150 mg PO BID levETIRAcetam [Keppra] 500 mg PO Q12HR Atorvastatin [Lipitor] 80 mg PO DAILY Aspirin 81 mg PO DAILY Clopidogrel [Plavix] 75 mg PO BID Discontinued HYDROcodone/APAP 10-325MG [[place] 10-325] 1 tab PO Q6H PRN PRN Reason: Pain Discharge Medication List Aspirin 81 mg PO DAILY 11/24/16 [History] Atorvastatin [Lipitor] 80 mg PO DAILY 11/24/16 [History] Clopidogrel [Plavix] 75 mg PO BID 11/24/16 [History] Ranitidine HCl [Zantac] 150 mg PO BID 11/24/16 [History] levETIRAcetam [Keppra] 500 mg PO Q12HR 11/24/16 [History] Docusate [Colace] 100 mg PO BID #20 capsule 09/20/17 [Rx] HYDROcodone/APAP 7.5-325MG [[place] 7.5] 1 each PO Q4H PRN #30 tab 09/20/17 [Rx] Follow up Appointment(s)/Referral(s): Carlos Quarles MD [STAFF PHYSICIAN] - 1 Week Kiera Porter DO [Primary Care Provider] - 1 Week Patient Instructions/Handouts: *Surgery [facility] - Laparoscopic Cholecystectomy Discharge Instructions Activity/Diet/Wound Care/Special Instructions: Patient is to follow-up with her neurosurgeon as soon as possible Diet: Low-fat Activity as tolerated Patient has been educated that she needs to quit smoking Discharge Disposition: HOME SELF-CARE
--- NOTE | 2017-09-22 11:49 | EEG ---
ELECTROENCEPHALOGRAM REPORT DATE OF EE09/21/2017 REFERRING PHYSICIAN: Dr. Coburn CONSULTING AND INTERPRETING PHYSICIAN: Dr. Sierra Geiger MD ELECTROENCEPHALOGRAPHIC EXAMINATION REPORT: INDICATION FOR EXAMINATION: This patient is a 52-year-old female being evaluated for acute stroke-like symptoms. Patient admitted for elective cholecystectomy and developed symptoms of acute TIA and stroke. Patient has history of underlying seizure disorder in the past. AGE: 52 EEG FINDINGS: A routine 21 channel awake digital EEG recording was accomplished utilizing the 10-20 international system with bipolar and referential montages. The background activity in the most alert resting state consists of a low to medium amplitude, fairly well- developed and well sustained 8-9 hertz activity over the posterior head regions. This posterior rhythm attenuates to eye opening. There is a small amount of low amplitude 18-20 Hz beta activity seen maximally over the anterior head regions. Muscle and movement artifact was observed on a few occasions during the tracing. Hyperventilation was not performed. Photic stimulation at flash frequencies of 2-30 Hz produced a good symmetrical occipital driving response. No epileptiform discharges were seen. IMPRESSION: This EEG is within normal limits for the patient's age. The EEG failed to reveal any focal, lateralized, or epileptiform abnormalities. Clinical correlation is recommended. MMODL / IJN: [id number] /
== END 2017-09-21 14:44 | disposition home or self-care (01) ==
LOC: OR 12:06 → 6SEL 13:49 → INTOOBSV 13:49 → UNDODISIN 09-21 14:44
PROVIDERS: ADMIT Internal Medicine; ATTEND Internal Medicine
DX: G45.9 Transient cerebral ischemic attack, unspecified (principal); Z53.09 Procedure and treatment not carried out because of other contraindication; I66.8 Occlusion and stenosis of other cerebral arteries; E78.5 Hyperlipidemia, unspecified; K21.9 Gastro-esophageal reflux disease without esophagitis; F17.210 Nicotine dependence, cigarettes, uncomplicated; G40.909 Epilepsy, unspecified, not intractable, without status epilepticus; M54.9 Dorsalgia, unspecified; G89.29 Other chronic pain; F32.9 Major depressive disorder, single episode, unspecified; F41.9 Anxiety disorder, unspecified; I73.9 Peripheral vascular disease, unspecified; K81.1 Chronic cholecystitis; E07.9 Disorder of thyroid, unspecified; F12.90 Cannabis use, unspecified, uncomplicated; Z79.02 Long term (current) use of antithrombotics/antiplatelets; Z79.82 Long term (current) use of aspirin; Z79.899 Other long term (current) drug therapy; Z88.8 Allergy status to other drugs, medicaments and biological substances; Z86.73 Personal history of transient ischemic attack (TIA), and cerebral infarction without residual deficits; Z80.1 Family history of malignant neoplasm of trachea, bronchus and lung; Z80.3 Family history of malignant neoplasm of breast; Z82.3 Family history of stroke; Z83.2 Family history of diseases of the blood and blood-forming organs and certain disorders involving the immune mechanism; Z82.49 Family history of ischemic heart disease and other diseases of the circulatory system; Z84.89 Family history of other specified conditions
CPT/HCPCS: 95819; 97162; 97165; 80061; 80053; 80177; 82550; 82553; 84484; 85025; 85610; 70496; 70450; 70498; G0378 ×2; Q9967

== ENCOUNTER → 2017-10-04 | Outpatient (CLI) | payer OTHER ==
--- NOTE | 2017-10-06 10:15 | MM ---
Reason for exam: screening (asymptomatic). Last mammogram was performed 5 years and 2 months ago. History: Family history of breast cancer in mother at age 55, breast cancer in maternal grandmother at age 50, and breast cancer in paternal aunt at age 60. Left US Cyst Aspiration of the left breast, August 03, 2005. Physical Findings: A clinical breast exam by your physician is recommended on an annual basis and results should be correlated with mammographic findings. MG Screening Mammo w CAD Bilateral CC and MLO view(s) were taken. Prior study comparison: July 24, 2012, bilateral digital screening mammo w/CAD. March 06, 2009, bilateral diagnostic digital mammog. The breast tissue is heterogeneously dense. This may lower the sensitivity of mammography. There is no discrete abnormality. No significant changes when compared with prior studies. ASSESSMENT: Negative, BI-RAD 1 RECOMMENDATION: Routine screening mammogram of both breasts in 1 year.
== END | disposition home or self-care (01) ==
LOC: RADMAMWWP 11:51
PROVIDERS: ATTEND Obstetrics & Gynecology
DX: Z12.31 Encounter for screening mammogram for malignant neoplasm of breast (principal)
CPT/HCPCS: 77067

== ENCOUNTER 2018-01-28 20:56 | Emergency (ER) | payer OTHER ==
[2018-01-28 21:01] VITALS: RESP 16
[2018-01-28] MEDS ORDERED: ONDANSETRON 4 MG/2 ML VIAL IVP STA (21:25)
[2018-01-28] MEDS ORDERED: SODIUM CHLORIDE 0.9% 1,000 ML IV STA (21:25)
[2018-01-28] MEDS ORDERED: KETOROLAC 30 MG/ML 1 ML VIAL IVP STA (21:25)
--- NOTE | 2018-01-28 21:39 | ED ---
Abdominal Pain HPI - General Chief Complaint: Abdominal Pain Stated Complaint: LLQ pain Time Seen by Provider: 01/28/18 21:03 Source: patient Mode of arrival: ambulatory Limitations: no limitations - History of Present Illness Initial Comments: 52-year-old female patient presents to the emergency department today with complaints of left flank and side pain. Patient states that this started about a week ago. Patient states the pain has been constant all day every day. States that the pain seems to be worsening. Patient said she has had some nausea but has not vomited. States that she is urinating without difficulty. Denies any constipation or diarrhea. Denies any hematochezia or melena. Patient has not had any fevers. Patient does have a history of pancreatitis and is concerned she may be expressing this again. Patient denies any alcohol or drug use. Patient denies any recent rash, shortness breath, chest pain, diarrhea, constipation, back pain, numbness, tingling, dizziness, weakness, hematuria, dysuria, urinary urgency, urinary frequency, headache, visual changes , or any other complaints. - Related Data Home Medications Medication Instructions Recorded Confirmed Aspirin 81 mg PO DAILY 11/24/16 09/20/17 Atorvastatin [Lipitor] 80 mg PO DAILY 11/24/16 09/20/17 Ranitidine HCl [Zantac] 150 mg PO BID 11/24/16 09/20/17 levETIRAcetam [Keppra] 500 mg PO Q12HR 11/24/16 09/20/17 Previous Rx's Medication Instructions Recorded Docusate [Colace] 100 mg PO BID #20 capsule 09/20/17 HYDROcodone/APAP 7.5-325MG [Britton 1 each PO Q4H PRN #30 tab 09/20/17 7.5] Clopidogrel [Plavix] 75 mg PO DAILY #0 09/21/17 Allergies Allergy/AdvReac Type Severity Reaction Status Date / Time prochlorperazine Allergy Unknown Verified 01/28/18 21:01 [From Compazine] Review of Systems ROS Statement: Those systems with pertinent positive or pertinent negative responses have been documented in the HPI. ROS Other: All systems not noted in ROS Statement are negative. Past Medical History Past Medical History: CVA/TIA, GERD/Reflux, Hyperlipidemia, Seizure Disorder, Thyroid Disorder, Vascular Disorder Additional Past Medical History / Comment(s): CVA "several last march", Chronic back pain,. last seizure 04/14,PVD,"lt cerebral artery 100%" 09/20/17 PT STATES THIS AM GAIT SL UNSTEADY WALKED INTO A WALL SPEECH WAS NOT NORMAL THIS AM WORDS NOT COMING OUT RIGHT NO HEADACHE BUT HEAD FEELS A LITTLE FOGGY History of Any Multi-Drug Resistant Organisms: None Reported Past Surgical History: No Surgical Hx Reported Additional Past Surgical History / Comment(s): stents merly iliac artery 07/16. EGD Past Anesthesia/Blood Transfusion Reactions: Family History of Problems w/ Anesthesia Additional Past Anesthesia/Blood Transfusion Reaction / Comment(s): sister shakes with anesthesia for several days after Past Psychological History: Anxiety, Depression Smoking Status: Current every day smoker Past Alcohol Use History: Rare Past Drug Use History: Marijuana - Past Family History Father Family Medical History: Cancer Additional Family Medical History / Comment(s): lung cancer Mother Family Medical History: Cancer, CVA/TIA Sister(s) Family Medical History: Cancer, Deep Vein Thrombosis (DVT), Pulmonary Embolus Additional Family Medical History / Comment(s): breast cancer Brother(s) Family Medical History: Cancer Additional Family Medical History / Comment(s): prostate cancer General Exam Limitations: no limitations General appearance: alert, in no apparent distress, other (This is a well- developed, well-nourished adult female patient in no acute distress. Vital signs upon presentation Are 98.1F, pulse 83, respirations 16, blood pressure 113/78, pulse ox 99% on room air.) Eye exam: Present: normal appearance, PERRL, EOMI. Absent: scleral icterus, conjunctival injection, periorbital swelling Respiratory exam: Present: normal lung sounds bilaterally. Absent: respiratory distress, wheezes, rales, rhonchi, stridor Cardiovascular Exam: Present: regular rate, normal rhythm, normal heart sounds. Absent: systolic murmur, diastolic murmur, rubs, gallop, clicks GI/Abdominal exam: Present: soft, tenderness (Left upper quadrant tenderness), normal bowel sounds. Absent: distended, guarding, rebound, rigid Back exam: Present: normal inspection. Absent: CVA tenderness (R), CVA tenderness (L) Neurological exam: Present: alert, oriented X3, CN II-XII intact Psychiatric exam: Present: normal affect, normal mood Skin exam: Present: warm, dry, intact, normal color. Absent: rash Course Vital Signs 01/28/18 01/28/18 01/29/18 20:58 23:20 01:33 Temperature 98.1 F 97.2 F L Pulse Rate 83 62 65 Respiratory 16 16 16 Rate Blood Pressure 113/78 102/61 132/70 O2 Sat by Pulse 99 100 99 Oximetry Medical Decision Making - Medical Decision Making 52-year-old female patient presents to the emergency department today for evaluation of severe left sided abdominal pain and left flank pain. Physical examination did reveal some left upper quadrant tenderness. Labs reviewed and are relatively unremarkable. Patient continued to have pain despite administration of pain medications or did perform CT abdomen and pelvis. Patient refused to have contrast. CT showed no acute intra-abdominal processes. I did discuss findings and results with the patient. We did discuss possible colonic causes of her symptoms. We also did discuss a possible early shingles and she is instructed to monitor for development of rash. She is instructed to follow-up with her primary care physician to discuss colonoscopy. Return parameters were discussed in detail. She does have Britton at home, she is instructed take this for pain. She verbalizes understanding and agrees with this plan for - Lab Data Result diagrams: 01/28/18 21:53 01/28/18 21:53 Lab Results 01/28/18 01/28/18 01/28/18 Range/Units 21:53 21:53 23:47 WBC 6.4 (3.8-10.6) k/uL RBC 4.32 (3.80-5.40) m/uL Hgb 12.7 (11.4-16.0) gm/dL Hct 40.0 (34.0-46.0) % MCV 92.5 (80.0-100.0) fL MCH 29.5 (25.0-35.0) pg MCHC 31.9 (31.0-37.0) g/dL RDW 13.3 (11.5-15.5) % Plt Count 183 (150-450) k/uL Neutrophils % 55 % Lymphocytes % 35 % Monocytes % 6 % Eosinophils % 3 % Basophils % 1 % Neutrophils # 3.5 (1.3-7.7) k/uL Lymphocytes # 2.2 (1.0-4.8) k/uL Monocytes # 0.4 (0-1.0) k/uL Eosinophils # 0.2 (0-0.7) k/uL Basophils # 0.0 (0-0.2) k/uL Sodium 141 (137-145) mmol/L Potassium 4.1 (3.5-5.1) mmol/L Chloride 106 (98-107) mmol/L Carbon Dioxide 29 (22-30) mmol/L Anion Gap 6 mmol/L BUN 14 (7-17) mg/dL Creatinine 0.80 (0.52-1.04) mg/dL Est GFR (CKD-EPI)AfAm >90 (>60 ml/min/1.73 sqM) Est GFR (CKD-EPI)NonAf 85 (>60 ml/min/1.73 sqM) Glucose 97 (74-99) mg/dL Calcium 9.6 (8.4-10.2) mg/dL Total Bilirubin 0.2 (0.2-1.3) mg/dL AST 19 (14-36) U/L ALT 24 (9-52) U/L Alkaline Phosphatase 56 (38-126) U/L Total Protein 6.2 L (6.3-8.2) g/dL Albumin 3.7 (3.5-5.0) g/dL Amylase 40 (30-110) U/L Lipase 68 (23-300) U/L Urine Color Yellow Urine Appearance Clear (Clear) Urine pH 5.5 (5.0-8.0) Ur Specific [place] 1.016 (1.001-1.035) Urine Protein Negative (Negative) Urine Glucose (UA) Negative (Negative) Urine Ketones Negative (Negative) Urine Blood Negative (Negative) Urine Nitrite Negative (Negative) Urine Bilirubin Negative (Negative) Urine Urobilinogen <2.0 (<2.0) mg/dL Ur Leukocyte Esterase Moderate H (Negative) Urine RBC 1 (0-5) /hpf Urine WBC 6 H (0-5) /hpf Ur Squamous Epith Cells <1 (0-4) /hpf Urine Mucus Rare H (None) /hpf Urine HCG, Qual (Not Detectd) 01/28/18 Range/Units 23:47 WBC (3.8-10.6) k/uL RBC (3.80-5.40) m/uL Hgb (11.4-16.0) gm/dL Hct (34.0-46.0) % MCV (80.0-100.0) fL MCH (25.0-35.0) pg MCHC (31.0-37.0) g/dL RDW (11.5-15.5) % Plt Count (150-450) k/uL Neutrophils % % Lymphocytes % % Monocytes % % Eosinophils % % Basophils % % Neutrophils # (1.3-7.7) k/uL Lymphocytes # (1.0-4.8) k/uL Monocytes # (0-1.0) k/uL Eosinophils # (0-0.7) k/uL Basophils # (0-0.2) k/uL Sodium (137-145) mmol/L Potassium (3.5-5.1) mmol/L Chloride (98-107) mmol/L Carbon Dioxide (22-30) mmol/L Anion Gap mmol/L BUN (7-17) mg/dL Creatinine (0.52-1.04) mg/dL Est GFR (CKD-EPI)AfAm (>60 ml/min/1.73 sqM) Est GFR (CKD-EPI)NonAf (>60 ml/min/1.73 sqM) Glucose (74-99) mg/dL Calcium (8.4-10.2) mg/dL Total Bilirubin (0.2-1.3) mg/dL AST (14-36) U/L ALT (9-52) U/L Alkaline Phosphatase (38-126) U/L Total Protein (6.3-8.2) g/dL Albumin (3.5-5.0) g/dL Amylase (30-110) U/L Lipase (23-300) U/L Urine Color Urine Appearance (Clear) Urine pH (5.0-8.0) Ur Specific [place] (1.001-1.035) Urine Protein (Negative) Urine Glucose (UA) (Negative) Urine Ketones (Negative) Urine Blood (Negative) Urine Nitrite (Negative) Urine Bilirubin (Negative) Urine Urobilinogen (<2.0) mg/dL Ur Leukocyte Esterase (Negative) Urine RBC (0-5) /hpf Urine WBC (0-5) /hpf Ur Squamous Epith Cells (0-4) /hpf Urine Mucus (None) /hpf Urine HCG, Qual Not Detected (Not Detectd) - Radiology Data Radiology results: report reviewed, image reviewed CT abdomen and pelvis without contrast was obtained. Report was reviewed in its entirety. Impression by Dr. Rao shows no evidence of renal stone or obstruction. Normal appendix. No sign of acute abdomen and pelvis. Atherosclerotic vascular disease. Two-view x-ray of the abdomen was obtained. There is no sign of intestinal obstruction or pneumoperitoneum. Fecal pattern is normal. There are bilateral iliac artery stents. There is mild thoracolumbar levoscoliosis. There are no pathologic calcifications over the kidneys. Lung bases are clear. Impression by Dr. Rao shows nonacute abdomen no adverse change. Disposition Clinical Impression: Abdominal pain, Flank pain Disposition: HOME SELF-CARE Condition: Good Instructions: Abdominal Pain (ED), Flank Pain (ED) Additional Instructions: Continue home pain medication as prescribed. Follow-up with your primary care physician discuss possible colonoscopy. Return here immediately for any new, worsening, or concerning symptoms. Is patient prescribed a controlled substance at d/c from ED?: No Referrals: Kiera Porter DO [Primary Care Provider] - 1-2 days Time of Disposition: 01:46
[2018-01-28 22:03] LABS: Basophils % (A) 1 %; Eosinophils # (A) 0.2 k/uL (0-0.7); Eosinophils % (A) 3 %; HGB 12.7 gm/dL (11.4-16.0); Lymphocytes # (A) 2.2 k/uL (1.0-4.8); Lymphocytes % (A) 35 %; MCH 29.5 pg (25.0-35.0); MCHC 31.9 g/dL (31.0-37.0); MCV 92.5 fL (80.0-100.0); Mean Platelet Volume 7.3; Monocytes # (A) 0.4 k/uL (0-1.0); Monocytes % (A) 6 %; Neutrophils # (A) 3.5 k/uL (1.3-7.7); Neutrophils % (A) 55 %; Platelet Count 183 k/uL (150-450); RBC 4.32 m/uL (3.80-5.40); RDW 13.3 % (11.5-15.5); WBC 6.4 k/uL (3.8-10.6)
--- NOTE | 2018-01-28 22:11 | XR ---
EXAMINATION TYPE: XR KUB DATE OF EXAM: 01/28/2018 COMPARISON: 04/06/2011 HISTORY: Flank pain TECHNIQUE: 2 views upright FINDINGS: There is no sign of intestinal obstruction or pneumoperitoneum. Fecal pattern is normal. Th ere are bilateral iliac artery stents. There is mild thoracolumbar levoscoliosis. There are no pathol ogic calcifications over the kidneys. Lung bases are clear. IMPRESSION: Nonacute abdomen. No adverse change.
[2018-01-28 22:14] LABS: ALT 24 U/L (9-52); AST 19 U/L (14-36); Albumin 3.7 g/dL (3.5-5.0); Alkaline Phosphatase 56 U/L (38-126); Amylase 40 U/L (30-110); Anion Gap 6 mmol/L; Blood Urea Nitrogen 14 mg/dL (7-17); Calcium 9.6 mg/dL (8.4-10.2); Carbon Dioxide 29 mmol/L (22-30); Chloride 106 mmol/L (98-107); Glucose 97 mg/dL (74-99); Lipase 68 U/L (23-300); Potassium 4.1 mmol/L (3.5-5.1); Sodium 141 mmol/L (137-145); Total Bilirubin 0.2 mg/dL (0.2-1.3); Total Protein 6.2 g/dL (6.3-8.2)
[2018-01-28 23:57] LABS: Appearance,Urine Clear (Clear); Bilirubin,Urine Negative (Negative); Blood,Urine Negative (Negative); Color,Urine Yellow; Glucose,Urine (UA) Negative (Negative); Ketones,Urine Negative (Negative); Leukocyte Esterase,Urine Moderate (Negative); Mucus,Urine Rare /hpf; Nitrite,Urine Negative (Negative); PH, Urine 5.5 (5.0-8.0); Protein,Urine Negative (Negative); RBC,Urine 1 /hpf (0-5); Specific Gravity,Urine 1.016 (1.001-1.035); Squamous Epithelial Cell,Urine <1 /hpf (0-4); Urobilinogen,Urine <2.0 mg/dL (<2.0); WBC,Urine 6 /hpf (0-5)
[2018-01-29] MEDS ORDERED: MORPHINE SULFATE 4 MG/ML SYRINGE IVP STA (00:13)
--- NOTE | 2018-01-29 01:01 | CT ---
EXAMINATION TYPE: CT abdomen pelvis wo con DATE OF EXAM: 01/29/2018 COMPARISON: None HISTORY: left flank CT DLP: 240.80 mGycm Automated exposure control for dose reduction was used. TECHNIQUE: Helical acquisition of images was performed from the lung bases through the pelvis. FINDINGS: Lung bases are clear. There is no pleural effusion. Heart size is normal. Liver and spleen appear normal. Bile ducts are not dilated. There is no pancreatic mass. Gallbladder is contracted. There is no adrenal mass. Kidneys have normal size. There is no hydronephrosis. Ureters are not dilat ed. There is no retroperitoneal adenopathy. Abdominal aorta is atheromatous. Appendix appears normal. There is no intestinal wall thickening. There are no dilated loops. Bladder distends smoothly. Uteru s is anteverted. Lumbar spine is intact. There is no ascites. There is no sign of free air. IMPRESSION: NO EVIDENCE OF RENAL STONE OR OBSTRUCTION. NORMAL APPENDIX. NO SIGN OF ACUTE ABDOMEN AND PELVIS. ATHE ROSCLEROTIC VASCULAR DISEASE.
[2018-01-29 01:34] VITALS: BP 132/70; PULSE 65; TEMP 97.2
== END 2018-01-29 01:56 | disposition home or self-care (01) ==
LOC: EC 20:56
DX: R10.32 Left lower quadrant pain (principal); R11.0 Nausea; K21.9 Gastro-esophageal reflux disease without esophagitis; E78.5 Hyperlipidemia, unspecified; G40.909 Epilepsy, unspecified, not intractable, without status epilepticus; F17.200 Nicotine dependence, unspecified, uncomplicated; Z79.82 Long term (current) use of aspirin; Z79.899 Other long term (current) drug therapy; Z88.8 Allergy status to other drugs, medicaments and biological substances; Z86.73 Personal history of transient ischemic attack (TIA), and cerebral infarction without residual deficits
CPT/HCPCS: 36415; 80053; 82150; 83690; 85025; 81001; 81025; 74018; 74176; 99284; 96374; 96375 ×2; 96361; J2270; J2405; J1885

== ENCOUNTER 2018-02-21 19:24 | Emergency (ER) | payer OTHER ==
[2018-02-21 19:28] VITALS: TEMP 98.2
[2018-02-21] MEDS ORDERED: MORPHINE SULFATE 4 MG/ML SYRINGE IV STA (19:51)
[2018-02-21] MEDS ORDERED: SODIUM CHLORIDE 0.9% 1,000 ML IV STA (19:51)
[2018-02-21] MEDS ORDERED: KETOROLAC 30 MG/ML 1 ML VIAL IVP STA (19:51)
[2018-02-21] MEDS ORDERED: ONDANSETRON 4 MG/2 ML VIAL IVP STA ×2 (19:51→22:02)
--- NOTE | 2018-02-21 19:58 | ED ---
General Adult HPI - General Source: patient Mode of arrival: wheelchair Limitations: no limitations <Estella Evans - Last Filed: 02/22/18 04:14> <Talia Velez - Last Filed: 02/22/18 07:41> - General Chief complaint: Back Pain/Injury Stated complaint: Kidney stone, chest pain Time Seen by Provider: 02/21/18 19:40 - History of Present Illness Initial comments: 52-year-old female patient presents to the emergency department today for evaluation of left flank pain. Patient states this started earlier today. States it is sharp and stabbing in nature. Patient states that she was seen and evaluated here about a week ago after having some left upper quadrant abdominal pain. States that that has persisted. Patient is also reporting some sharp chest pains throughout the day today. States they're intermittent. States that when the pain comes on it does make her short of breath. She has any cough or congestion. Denies any nausea or vomiting. Denies any constipation or diarrhea. Denies any hematuria, dysuria, urinary frequency, or urinary urgency. Patient does have an EGD scheduled with Dr. Quarles on Monday for persistent epigastric pain. Patient denies any recent rash, fever, chills, numbness, tingling, dizziness, weakness, headache, visual changes, or any other complaints. Patient does currently smoke cigarettes. Has a family history of heart disease and personal history of hyperlipidemia. (Estella Evans) - Related Data Home Medications Medication Instructions Recorded Confirmed Aspirin 81 mg PO DAILY 11/24/16 02/21/18 Atorvastatin [Lipitor] 80 mg PO DAILY 11/24/16 02/21/18 Ranitidine HCl [Zantac] 150 mg PO BID 11/24/16 02/21/18 levETIRAcetam [Keppra] 500 mg PO Q12HR 11/24/16 02/21/18 Gabapentin [Neurontin] 600 mg PO DAILY PRN 02/16/18 02/21/18 HYDROcodone/APAP 10-325MG [[place] 1 tab PO Q6HR PRN 02/16/18 02/21/18 10-325] buPROPion HCL [Wellbutrin SR] 150 mg PO BID 02/16/18 02/21/18 Previous Rx's Medication Instructions Recorded Clopidogrel [Plavix] 75 mg PO DAILY #0 09/21/17 Allergies Allergy/AdvReac Type Severity Reaction Status Date / Time prochlorperazine Allergy Unknown Verified 02/21/18 19:28 [From Compazine] Review of Systems ROS Other: All systems not noted in ROS Statement are negative. <Estella Evans - Last Filed: 02/22/18 04:14> ROS Other: All systems not noted in ROS Statement are negative. <Talia Velez P - Last Filed: 02/22/18 07:41> ROS Statement: Those systems with pertinent positive or pertinent negative responses have been documented in the HPI. Past Medical History Past Medical History: Chest Pain / Angina, CVA/TIA, GERD/Reflux, Hyperlipidemia , Seizure Disorder, Thyroid Disorder, Vascular Disorder Additional Past Medical History / Comment(s): CVA "several last march", Chronic back pain,. last seizure 04/14,PVD,"lt cerebral artery 100%" 09/20/17 PT STATES THIS AM GAIT SL UNSTEADY WALKED INTO A WALL SPEECH WAS NOT NORMAL THIS AM WORDS NOT COMING OUT RIGHT NO HEADACHE BUT HEAD FEELS A LITTLE FOGGY History of Any Multi-Drug Resistant Organisms: None Reported Past Surgical History: No Surgical Hx Reported Additional Past Surgical History / Comment(s): stents merly iliac artery 07/16. EGD Past Anesthesia/Blood Transfusion Reactions: Family History of Problems w/ Anesthesia Additional Past Anesthesia/Blood Transfusion Reaction / Comment(s): sister shakes with anesthesia for several days after Past Psychological History: Anxiety, Depression Smoking Status: Former smoker Past Alcohol Use History: None Reported Past Drug Use History: None Reported - Past Family History Father Family Medical History: Cancer Additional Family Medical History / Comment(s): lung cancer Mother Family Medical History: Cancer, CVA/TIA Sister(s) Family Medical History: Cancer, Deep Vein Thrombosis (DVT), Pulmonary Embolus Additional Family Medical History / Comment(s): breast cancer Brother(s) Family Medical History: Cancer Additional Family Medical History / Comment(s): prostate cancer <Estella Evans - Last Filed: 02/22/18 04:14> General Exam Limitations: no limitations General appearance: alert, in no apparent distress, other (This is a well- developed, well-nourished adult female patient in no acute distress. Vital signs upon presentation are temperature 98.2F, pulse 87, respirations 18, blood pressure 141/90, pulse ox 99% on room air.) Eye exam: Present: normal appearance, PERRL, EOMI. Absent: scleral icterus, conjunctival injection, periorbital swelling ENT exam: Present: normal exam, normal oropharynx, mucous membranes moist Respiratory exam: Present: normal lung sounds bilaterally. Absent: respiratory distress, wheezes, rales, rhonchi, stridor Cardiovascular Exam: Present: regular rate, normal rhythm, normal heart sounds. Absent: systolic murmur, diastolic murmur, rubs, gallop, clicks GI/Abdominal exam: Present: soft, tenderness (Left upper quadrant tenderness), normal bowel sounds. Absent: distended, guarding, rebound, rigid Back exam: Present: normal inspection, CVA tenderness (L). Absent: CVA tenderness (R) Neurological exam: Present: alert, oriented X3, CN II-XII intact Psychiatric exam: Present: normal affect, normal mood Skin exam: Present: warm, dry, intact, normal color. Absent: rash <Estella Evans M - Last Filed: 02/22/18 04:14> Vital Signs 02/21/18 02/21/18 19:26 23:13 Temperature 98.2 F Pulse Rate 87 57 L Respiratory 18 20 Rate Blood Pressure 141/90 189/96 O2 Sat by Pulse 99 99 Oximetry EKG Findings - EKG Comments: EKG Findings:: EKG obtained at 2008 shows normal sinus rhythm. Ventricular rate is 72, FL interval 1:30, QR denominational 78, QT 392, QTc 429. No evidence of ST elevation or depression. <Estelal Evans M - Last Filed: 02/22/18 04:14> Medical Decision Making - Lab Data Result diagrams: 02/21/18 19:47 02/21/18 19:47 - Radiology Data Radiology results: report reviewed, image reviewed <Estella Evans - Last Filed: 02/22/18 04:14> - Lab Data Result diagrams: 02/21/18 19:47 02/21/18 19:47 <Talia Velez - Last Filed: 02/22/18 07:41> - Medical Decision Making 52-year-old female patient presents to the emergency department today for evaluation of left upper quadrant and left flank pain. Patient is also having some intermittent chest pain started earlier in the day. Physical examination did reveal some mild left upper quadrant tenderness and some left flank tenderness. Labs reviewed and were unremarkable. Troponin was negative. White blood cell count was negative. Urinalysis was negative for any evidence of infection or red blood cells. Patient was seen and evaluated here earlier this month and did have an abdomen and pelvis computed tomography scan which showed no abnormalities. I did discuss findings and results with the patient. She does have an EGD and colonoscopy scheduled with Dr. Quarles on Monday. Patient will be given nausea medication for home. She is instructed to follow- up with her primary care physician for possible referral to cardiology. Her primary doctor for recheck in 1-2 days. Return parameters discussed in detail. She verbalizes understanding and agrees this plan. (Estella Evans) I was available for consultation in the emergency department. The history and physical exam were done by the midlevel provider. I was consulted for this patient's care. I reviewed the case with the midlevel provider and based on their presentation of the patient, I agree with the assessment, medical decision making and plan of care as documented. (Talia Velez) - Lab Data Lab Results 02/21/18 02/21/18 02/21/18 Range/Units 19:47 19:47 19:47 WBC 8.0 (3.8-10.6) k/uL RBC 4.48 (3.80-5.40) m/uL Hgb 13.6 (11.4-16.0) gm/dL Hct 40.9 (34.0-46.0) % MCV 91.3 (80.0-100.0) fL MCH 30.3 (25.0-35.0) pg MCHC 33.2 (31.0-37.0) g/dL RDW 13.1 (11.5-15.5) % Plt Count 206 (150-450) k/uL Neutrophils % 56 % Lymphocytes % 34 % Monocytes % 6 % Eosinophils % 2 % Basophils % 1 % Neutrophils # 4.5 (1.3-7.7) k/uL Lymphocytes # 2.7 (1.0-4.8) k/uL Monocytes # 0.5 (0-1.0) k/uL Eosinophils # 0.2 (0-0.7) k/uL Basophils # 0.1 (0-0.2) k/uL PT (9.0-12.0) sec INR (<1.2) APTT (22.0-30.0) sec Sodium 140 (137-145) mmol/L Potassium 3.8 (3.5-5.1) mmol/L Chloride 105 (98-107) mmol/L Carbon Dioxide 26 (22-30) mmol/L Anion Gap 9 mmol/L BUN 16 (7-17) mg/dL Creatinine 0.70 (0.52-1.04) mg/dL Est GFR (CKD-EPI)AfAm >90 (>60 ml/min/1.73 sqM) Est GFR (CKD-EPI)NonAf >90 (>60 ml/min/1.73 sqM) Glucose 112 H (74-99) mg/dL Calcium 9.8 (8.4-10.2) mg/dL Total Bilirubin 0.2 (0.2-1.3) mg/dL AST 25 (14-36) U/L ALT 24 (9-52) U/L Alkaline Phosphatase 71 (38-126) U/L Total Creatine Kinase 44 (30-135) U/L CK-MB (CK-2) 0.7 (0.0-2.4) ng/mL CK-MB (CK-2) Rel Index 1.6 Troponin I <0.012 (0.000-0.034) ng/mL Total Protein 6.8 (6.3-8.2) g/dL Albumin 4.1 (3.5-5.0) g/dL Amylase 50 (30-110) U/L Lipase 133 (23-300) U/L Urine Color Urine Appearance (Clear) Urine pH (5.0-8.0) Ur Specific [place] (1.001-1.035) Urine Protein (Negative) Urine Glucose (UA) (Negative) Urine Ketones (Negative) Urine Blood (Negative) Urine Nitrite (Negative) Urine Bilirubin (Negative) Urine Urobilinogen (<2.0) mg/dL Ur Leukocyte Esterase (Negative) Urine RBC (0-5) /hpf Urine WBC (0-5) /hpf Ur Squamous Epith Cells (0-4) /hpf Amorphous Sediment (None) /hpf Urine Mucus (None) /hpf 09/26/18 09/26/18 Range/Units 19:47 20:03 WBC (3.8-10.6) k/uL RBC (3.80-5.40) m/uL Hgb (11.4-16.0) gm/dL Hct (34.0-46.0) % MCV (80.0-100.0) fL MCH (25.0-35.0) pg MCHC (31.0-37.0) g/dL RDW (11.5-15.5) % Plt Count (150-450) k/uL Neutrophils % % Lymphocytes % % Monocytes % % Eosinophils % % Basophils % % Neutrophils # (1.3-7.7) k/uL Lymphocytes # (1.0-4.8) k/uL Monocytes # (0-1.0) k/uL Eosinophils # (0-0.7) k/uL Basophils # (0-0.2) k/uL PT 10.2 (9.0-12.0) sec INR 1.0 (<1.2) APTT 24.8 (22.0-30.0) sec Sodium (137-145) mmol/L Potassium (3.5-5.1) mmol/L Chloride (98-107) mmol/L Carbon Dioxide (22-30) mmol/L Anion Gap mmol/L BUN (7-17) mg/dL Creatinine (0.52-1.04) mg/dL Est GFR (CKD-EPI)AfAm (>60 ml/min/1.73 sqM) Est GFR (CKD-EPI)NonAf (>60 ml/min/1.73 sqM) Glucose (74-99) mg/dL Calcium (8.4-10.2) mg/dL Total Bilirubin (0.2-1.3) mg/dL AST (14-36) U/L ALT (9-52) U/L Alkaline Phosphatase (38-126) U/L Total Creatine Kinase (30-135) U/L CK-MB (CK-2) (0.0-2.4) ng/mL CK-MB (CK-2) Rel Index Troponin I (0.000-0.034) ng/mL Total Protein (6.3-8.2) g/dL Albumin (3.5-5.0) g/dL Amylase (30-110) U/L Lipase (23-300) U/L Urine Color Yellow Urine Appearance Clear (Clear) Urine pH 5.5 (5.0-8.0) Ur Specific [place] 1.014 (1.001-1.035) Urine Protein Negative (Negative) Urine Glucose (UA) Negative (Negative) Urine Ketones Negative (Negative) Urine Blood Negative (Negative) Urine Nitrite Negative (Negative) Urine Bilirubin Negative (Negative) Urine Urobilinogen <2.0 (<2.0) mg/dL Ur Leukocyte Esterase Small H (Negative) Urine RBC 1 (0-5) /hpf Urine WBC 3 (0-5) /hpf Ur Squamous Epith Cells 2 (0-4) /hpf Amorphous Sediment Rare H (None) /hpf Urine Mucus Occasional H (None) /hpf - Radiology Data Two-view x-ray of the abdomen is obtained. Report was reviewed in its entirety. Impression by Dr. Rao shows nonacute abdomen with no change per Two-view x-ray of the chest is obtained. Heart media's enema normal. There is no confluent pneumonic infiltrate. There is mild thoracic dextroscoliosis. Heart size is normal. Thoracic aorta is atheromatous. There are chest leads. Impression by Dr. Rao shows no active cardiopulmonary disease. Normal heart. No change. (Estella Evans) Disposition Is patient prescribed a controlled substance at d/c from ED?: No Time of Disposition: 22:53 <Estella Evans - Last Filed: 02/22/18 04:14> <Talia Velez - Last Filed: 02/22/18 07:41> Clinical Impression: Flank pain, Chest pain Disposition: HOME SELF-CARE Condition: Good Instructions: Chest Pain (ED), Abdominal Pain (ED), Flank Pain (ED) Additional Instructions: Follow-up with your surgeon as you have planned. Follow up with cardiology for further evaluation. Return here immediately for any new, worsening, or concerning symptoms. Referrals: Kiera Porter DO [Primary Care Provider] - 1-2 days Paul Ahuja MD [STAFF PHYSICIAN] - 1-2 days
[2018-02-21 20:14] LABS: Basophils # (A) 0.1 k/uL (0-0.2); Basophils % (A) 1 %; Eosinophils # (A) 0.2 k/uL (0-0.7); Eosinophils % (A) 2 %; HCT 40.9 % (34.0-46.0); HGB 13.6 gm/dL (11.4-16.0); Lymphocytes # (A) 2.7 k/uL (1.0-4.8); Lymphocytes % (A) 34 %; MCH 30.3 pg (25.0-35.0); MCHC 33.2 g/dL (31.0-37.0); MCV 91.3 fL (80.0-100.0); Mean Platelet Volume 7.6; Monocytes # (A) 0.5 k/uL (0-1.0); Monocytes % (A) 6 %; Neutrophils # (A) 4.5 k/uL (1.3-7.7); Neutrophils % (A) 56 %; Platelet Count 206 k/uL (150-450); RBC 4.48 m/uL (3.80-5.40); RDW 13.1 % (11.5-15.5)
[2018-02-21 20:21] LABS: Partial Thromboplastin Time 24.8 sec (22.0-30.0); Prothrombin Time 10.2 sec (9.0-12.0)
[2018-02-21 20:29] LABS: ALT 24 U/L (9-52); AST 25 U/L (14-36); Albumin 4.1 g/dL (3.5-5.0); Alkaline Phosphatase 71 U/L (38-126); Amylase 50 U/L (30-110); Anion Gap 9 mmol/L; Blood Urea Nitrogen 16 mg/dL (7-17); Calcium 9.8 mg/dL (8.4-10.2); Carbon Dioxide 26 mmol/L (22-30); Chloride 105 mmol/L (98-107); Glucose 112 mg/dL (74-99); Lipase 133 U/L (23-300); Potassium 3.8 mmol/L (3.5-5.1); Sodium 140 mmol/L (137-145); Total Bilirubin 0.2 mg/dL (0.2-1.3); Total Protein 6.8 g/dL (6.3-8.2)
[2018-02-21 20:33] LABS: Amorphous Sediment,Urine Rare /hpf; Appearance,Urine Clear (Clear); Bilirubin,Urine Negative (Negative); Blood,Urine Negative (Negative); Color,Urine Yellow; Glucose,Urine (UA) Negative (Negative); Ketones,Urine Negative (Negative); Leukocyte Esterase,Urine Small (Negative); Mucus,Urine Occasional /hpf; Nitrite,Urine Negative (Negative); PH, Urine 5.5 (5.0-8.0); Protein,Urine Negative (Negative); RBC,Urine 1 /hpf (0-5); Specific Gravity,Urine 1.014 (1.001-1.035); Squamous Epithelial Cell,Urine 2 /hpf (0-4); Urobilinogen,Urine <2.0 mg/dL (<2.0); WBC,Urine 3 /hpf (0-5)
[2018-02-21 20:33] LABS: Creatine Kinase 44 U/L (30-135)
[2018-02-21 20:46] LABS: Creatine Kinase MB 0.7 ng/mL (0.0-2.4); Troponin I <0.012 ng/mL (0.000-0.034)
--- NOTE | 2018-02-21 20:56 | XR ---
EXAMINATION TYPE: XR KUB DATE OF EXAM: 02/21/2018 COMPARISON: January 28, 2018 HISTORY: Flank pain TECHNIQUE: 2 views FINDINGS: 2 upright views were obtained. There is no sign of intestinal obstruction or pneumoperitone um. Fecal pattern is normal. There is mild thoracolumbar levoscoliosis. There are no pathologic calci fications over the kidneys. IMPRESSION: Nonacute abdomen. No change.
--- NOTE | 2018-02-21 21:00 | XR ---
EXAMINATION TYPE: XR chest 2V DATE OF EXAM: 02/21/2018 COMPARISON: 01/22/2013 HISTORY: Chest pain TECHNIQUE: Frontal and lateral views of the chest are obtained. FINDINGS: There is no heart failure nor confluent pneumonic infiltrate. There is mild thoracic dextr oscoliosis. Heart size is normal. Thoracic aorta is atheromatous. There are chest leads. IMPRESSION: No active cardiopulmonary disease. Normal heart. No change.
[2018-02-21] MEDS ORDERED: ONDANSETRON 4 MG ODT STARTER PACK 2 TAB BTL PO STA (22:54)
[2018-02-21] MEDS ORDERED: TRIMETHOBENZAMIDE 100 MG/ML 2 ML VIAL IM STA (22:54)
[2018-02-21 23:14] VITALS: BP 189/96; PULSE 57; RESP 20
== END 2018-02-21 23:24 | disposition home or self-care (01) ==
LOC: EC 19:24
DX: R10.9 Unspecified abdominal pain (principal); R07.9 Chest pain, unspecified; K21.9 Gastro-esophageal reflux disease without esophagitis; E78.5 Hyperlipidemia, unspecified; G40.909 Epilepsy, unspecified, not intractable, without status epilepticus; E07.9 Disorder of thyroid, unspecified; F41.9 Anxiety disorder, unspecified; F32.9 Major depressive disorder, single episode, unspecified; F17.210 Nicotine dependence, cigarettes, uncomplicated; Z86.73 Personal history of transient ischemic attack (TIA), and cerebral infarction without residual deficits; Z98.890 Other specified postprocedural states; Z79.82 Long term (current) use of aspirin; Z79.899 Other long term (current) drug therapy; Z88.8 Allergy status to other drugs, medicaments and biological substances
CPT/HCPCS: 36415; 71046; 74018; 80053; 81001; 82150; 82550; 82553; 83690; 84484; 85025; 85610; 85730; 93005; 96361; 96372; 96374; 96375; 96376; 99284

== ENCOUNTER 2018-02-23 07:43 | Day surgery (SDC) | payer OTHER ==
[2018-02-16 10:19] VITALS: BMI 23.8
[~2018-02-23 07:43] MED LIST changes: -DEXAMETHASONE SOD PHOSPHATE 10 MG/ML 1 ML VIAL IV ONE; -HEPARIN SODIUM,PORCINE 5,000 UNIT/ML 1 ML VIAL SQ ONE; +LACTATED RINGERS 1,000 ML IV SCH; +LIDOCAINE 1% 20 ML VIAL (10MG/ML) FOR IV START INTRADERMA PRN; -MORPHINE SULFATE 4 MG/ML SYRINGE IV PRN; -ONDANSETRON ODT 4 MG TAB PO ONE; -ceFAZolin IN SWFI 2 GM/20 ML SYRINGE IVP ONE
[2018-02-23 08:04] VITALS: RESP 18; TEMP 98.9
[2018-02-23] MEDS ORDERED: PROPOFOL 10 MG/ML 20 ML VIAL IV ONE (08:48)
--- NOTE | 2018-02-23 08:54 | P.GSHP ---
History of Present Illness H&P Date: 02/23/18 Chief Complaint: Epigastric pain, screen colonoscopy This 52-year-old female since for EGD and screening colonoscopy. Patient has had complaints of epigastric pain in the right and left upper quadrant. Pain radiates to her back Past Medical History Past Medical History: Chest Pain / Angina, CVA/TIA, GERD/Reflux, Hyperlipidemia , Seizure Disorder, Thyroid Disorder, Vascular Disorder Additional Past Medical History / Comment(s): CVA "several last march", Chronic back pain,. last seizure 04/14,PVD,"lt cerebral artery 100%" 09/20/17 PT STATES THIS AM GAIT SL UNSTEADY WALKED INTO A WALL SPEECH WAS NOT NORMAL THIS AM WORDS NOT COMING OUT RIGHT NO HEADACHE BUT HEAD FEELS A LITTLE FOGGY History of Any Multi-Drug Resistant Organisms: None Reported Past Surgical History: No Surgical Hx Reported Additional Past Surgical History / Comment(s): stents merly iliac artery 07/16. EGD Past Anesthesia/Blood Transfusion Reactions: Family History of Problems w/ Anesthesia Additional Past Anesthesia/Blood Transfusion Reaction / Comment(s): sister shakes with anesthesia for several days after Past Psychological History: Anxiety, Depression Smoking Status: Former smoker Past Alcohol Use History: None Reported Past Drug Use History: None Reported - Past Family History Father Family Medical History: Cancer Additional Family Medical History / Comment(s): lung cancer Mother Family Medical History: Cancer, CVA/TIA Sister(s) Family Medical History: Cancer, Deep Vein Thrombosis (DVT), Pulmonary Embolus Additional Family Medical History / Comment(s): breast cancer Brother(s) Family Medical History: Cancer Additional Family Medical History / Comment(s): prostate cancer Medications and Allergies Home Medications Medication Instructions Recorded Confirmed Type Aspirin 81 mg PO DAILY 11/24/16 02/23/18 History Atorvastatin [Lipitor] 80 mg PO DAILY 11/24/16 02/23/18 History Ranitidine HCl [Zantac] 150 mg PO BID 11/24/16 02/23/18 History levETIRAcetam [Keppra] 500 mg PO Q12HR 11/24/16 02/23/18 History Clopidogrel [Plavix] 75 mg PO DAILY #0 09/21/17 02/23/18 Rx Gabapentin [Neurontin] 600 mg PO DAILY PRN 02/16/18 02/23/18 History HYDROcodone/APAP 10-325MG [[place] 1 tab PO Q6HR PRN 02/16/18 02/23/18 History 10-325] buPROPion HCL [Wellbutrin SR] 150 mg PO BID 02/16/18 02/23/18 History Allergies Allergy/AdvReac Type Severity Reaction Status Date / Time prochlorperazine Allergy Unknown Verified 02/23/18 08:01 [From Compazine] Surgical - Exam Vital Signs Temp Pulse Resp BP Pulse Ox 98.9 F 76 18 152/86 99 02/23/18 08:03 02/23/18 08:03 02/23/18 08:03 02/23/18 08:03 02/23/18 08:03 - General well developed, well nourished, moderate distress - Eyes PERRL - ENT normal pinna - Neck no masses - Respiratory normal expansion - Cardiovascular Rhythm: regular - Abdomen Abdomen: soft, non tender - Integumentary no rash Assessment and Plan Assessment: Epigastric pain We'll perform EGD We'll also perform screening colonoscopy
--- NOTE | 2018-02-23 09:23 | P.OP ---
Date of Procedure: 02/23/18 Preoperative Diagnosis: GERD Screening colonoscopy Postoperative Diagnosis: Antral gastritis Duodenitis Hiatal hernia Esophagitis External hemorrhoids Procedure(s) Performed: EGD Colonoscopy Anesthesia: MAC Surgeon: Carlos Quarles Pathology: other (Antrum, duodenum, esophagus) Condition: stable Disposition: PACU Description of Procedure: The patient's placed on the endoscopy table in the lateral position. She received IV sedation. The gastroscope placed oropharynx passed in the esophagus into reverse stomach and through the pylorus and into the duodenum. The first part of duodenum appeared mildly inflamed a biopsies was performed. Scope was then brought back the antrum this was mildly inflamed a biopsies performed. The scope was then retroflexed and there was evidence of a moderate size hiatal hernia. The GE junction was at 40 cm. The distal esophagus appeared inflamed and a biopsies performed. The proximal esophagus appeared normal. Scope was withdrawn for patient. Next digital rectal exam was performed which revealed external hemorrhoids. The flexible colonoscope was then placed patient anus passed throughout the entire colon. The ileocecal valve was visualized. The cecum, ascending and transverse colon appeared normal. The descending and; appeared normal. The scope was then brought back the rectum and this appeared normal. Scope withdrawn for patient.
[2018-02-23 09:41] VITALS: BP 158/84; PULSE 66
== END 2018-02-23 10:02 | disposition home or self-care (01) ==
LOC: ORWHC2ENDO 07:43
PROVIDERS: ATTEND Surgery
DX: Z12.11 Encounter for screening for malignant neoplasm of colon (principal); K20.0 Eosinophilic esophagitis; K29.50 Unspecified chronic gastritis without bleeding; K29.80 Duodenitis without bleeding; K44.9 Diaphragmatic hernia without obstruction or gangrene; K64.4 Residual hemorrhoidal skin tags; E78.5 Hyperlipidemia, unspecified; E07.9 Disorder of thyroid, unspecified; G40.909 Epilepsy, unspecified, not intractable, without status epilepticus; Z86.73 Personal history of transient ischemic attack (TIA), and cerebral infarction without residual deficits; Z87.891 Personal history of nicotine dependence; G45.9 Transient cerebral ischemic attack, unspecified; F41.9 Anxiety disorder, unspecified; F32.9 Major depressive disorder, single episode, unspecified; G89.29 Other chronic pain; J44.9 Chronic obstructive pulmonary disease, unspecified; M54.9 Dorsalgia, unspecified; Z79.02 Long term (current) use of antithrombotics/antiplatelets; Z79.82 Long term (current) use of aspirin; Z79.899 Other long term (current) drug therapy; Z88.8 Allergy status to other drugs, medicaments and biological substances
CPT/HCPCS: 88305; 43239; J2704; G0121

== ENCOUNTER 2018-04-03 06:38 | Day surgery (SDC) | payer OTHER ==
[2018-03-02 14:04] VITALS: BMI 22.8
[~2018-04-03 06:38] MED LIST changes: +DEXAMETHASONE SOD PHOSPHATE 10 MG/ML 1 ML VIAL IV ONE; +HEPARIN SODIUM,PORCINE 5,000 UNIT/ML 1 ML VIAL SQ ONE; +MIDAZOLAM 2 MG/2 ML VIAL IV PRN; +ceFAZolin IN SWFI 2 GM/20 ML SYRINGE IVP ONE; +fentaNYL (PF) 50 MCG/ML 2 ML AMP IV PRN
[2018-04-03 07:16] VITALS: RESP 16
[2018-04-03] MEDS: ONDANSETRON 4 MG/2 ML VIAL IVP ONE ×2 (07:17→09:10)
[2018-04-03] MEDS ORDERED: BUPIVACAIN-EPI 0.25%-1:200,000 30 ML VIAL SQ ONE ×2 (07:19→08:36)
--- NOTE | 2018-04-03 07:57 | P.GSHP ---
History of Present Illness H&P Date: 04/03/18 Chief Complaint: Right upper quadrant pain This a 52-year-old female who presents today for laparoscopic cholestatic. Patient's had complaints of right quadrant pain. She is worked up found evidence of chronic cholecystitis. Past Medical History Past Medical History: Chest Pain / Angina, CVA/TIA, GERD/Reflux, Hyperlipidemia , Seizure Disorder, Thyroid Disorder, Vascular Disorder Additional Past Medical History / Comment(s): CVA "several last march", Chronic back pain,. last seizure 03/2017,PVD,"lt cerebral artery 100%" 09/20/17 History of Any Multi-Drug Resistant Organisms: None Reported Past Surgical History: Heart Catheterization With Stent Additional Past Surgical History / Comment(s): stents merly iliac artery 07/16. , COLONOSCOPY AND EGD Past Anesthesia/Blood Transfusion Reactions: Family History of Problems w/ Anesthesia Additional Past Anesthesia/Blood Transfusion Reaction / Comment(s): sister shakes with anesthesia for several days after Date of Last Stent Placement:: 06/2017 Smoking Status: Current every day smoker - Past Family History Father Family Medical History: Cancer Additional Family Medical History / Comment(s): lung cancer Mother Family Medical History: Cancer, CVA/TIA Sister(s) Family Medical History: Cancer, Deep Vein Thrombosis (DVT), Pulmonary Embolus Additional Family Medical History / Comment(s): breast cancer Brother(s) Family Medical History: Cancer Additional Family Medical History / Comment(s): prostate cancer Medications and Allergies Home Medications Medication Instructions Recorded Confirmed Type Aspirin 81 mg PO DAILY 11/24/16 03/22/18 History Atorvastatin [Lipitor] 80 mg PO DAILY 11/24/16 03/22/18 History Ranitidine HCl [Zantac] 150 mg PO BID 11/24/16 03/22/18 History levETIRAcetam [Keppra] 500 mg PO Q12HR 11/24/16 03/22/18 History Clopidogrel [Plavix] 75 mg PO DAILY #0 09/21/17 03/22/18 Rx Gabapentin [Neurontin] 600 mg PO DAILY PRN 02/16/18 03/22/18 History HYDROcodone/APAP 10-325MG [[place] 1 tab PO Q6HR PRN 02/16/18 03/22/18 History 10-325] buPROPion HCL [Wellbutrin SR] 150 mg PO BID 02/16/18 03/22/18 History Allergies Allergy/AdvReac Type Severity Reaction Status Date / Time prochlorperazine Allergy CAN'T Verified 04/03/18 06:59 [From Compazine] REMEMBER REACTION Surgical - Exam Vital Signs Temp Pulse Resp BP Pulse Ox 98.4 F 71 16 139/92 99 04/03/18 07:15 04/03/18 07:15 04/03/18 07:15 04/03/18 07:15 04/03/18 07:15 - General well developed, no distress - Eyes PERRL - ENT normal pinna - Neck no masses - Respiratory normal expansion - Cardiovascular Rhythm: regular - Abdomen Abdomen: soft, non tender Assessment and Plan Assessment: Chronic cholecystitis We'll perform laparoscopic cholecystectomy.
[2018-04-03] MEDS ORDERED: PROPOFOL 10 MG/ML 20 ML VIAL IV ONE (08:19)
[2018-04-03] MEDS ORDERED: GLYCOPYRROLATE 0.2 MG/ML 2 ML VIAL ONE (08:19)
[2018-04-03] MEDS ORDERED: NEOSTIGMINE 1 MG/ML 10 ML VIAL ONE (08:19)
[2018-04-03] MEDS ORDERED: MIDAZOLAM 2 MG/2 ML VIAL ONE (08:19)
[2018-04-03] MEDS ORDERED: SUCCINYLCHOLINE CHLORIDE 100 MG/5 ML SYR IV ONE (08:19)
[2018-04-03] MEDS ORDERED: fentaNYL (PF) 50 MCG/ML 2 ML AMP ONE (08:19)
[2018-04-03] MEDS ORDERED: ROCURONIUM BROMIDE 10 MG/ML 10 ML VIAL IV ONE (08:19)
[2018-04-03] MEDS ORDERED: LIDOCAINE 1% INJ 10MG/ML (20 ML MDV) ONE (08:19)
[2018-04-03] MEDS ORDERED: KETOROLAC 30 MG/ML 1 ML VIAL ONE (08:19)
[2018-04-03 09:06] VITALS: TEMP 97.2
[2018-04-03] MEDS: MEPERIDINE 50 MG/ML SYRINGE IVP ONE ×2 (09:22→09:28)
[2018-04-03] MEDS ORDERED: LACTATED RINGERS 1,000 ML IV ONE (09:36)
[2018-04-03] MEDS ORDERED: HYDROcodone/APAP 10-325MG 1 EACH TAB PO ONE (10:50)
[2018-04-03 11:08] VITALS: BP 118/67; PULSE 69
--- NOTE | 2018-05-13 13:12 | P.OP ---
Date of Procedure: 05/13/18 Preoperative Diagnosis: Cholecystitis Postoperative Diagnosis: Cholecystitis Procedure(s) Performed: Laparoscopic cholecystectomy Anesthesia: REJI Surgeon: Carlos Quarles Estimated Blood Loss (ml): 5 Pathology: other (Gallbladder) Condition: stable Disposition: PACU Description of Procedure: The patient was placed on the operating table. The patient received a general endotracheal tube anesthesia. The patients abdomen was prepped and draped in the usual sterile fashion. Through an infraumbilical stab incision, the fascia of the anterior abdominal wall was grasped with a pair of Kochers and then the Veress needle was placed in the peritoneal cavity. Position of the Veress needle was confirmed with positive drop test. The abdomen was then insufflated. After adequate insufflation, the 10 mm trocar was placed in the peritoneal cavity. Following this the laparoscope was placed in the peritoneal cavity. The patient was placed in the head-up, right side up position and then a 5 mm trocar was placed in the right lateral and right subcostal position under direct visualization. A 8 mm trocar was placed in the epigastric position. The gallbladder was grasped in the fundus and infundibulum. Traction on the gallbladder was placed in the lateral and the cephalad positions. The triangle of Calot was visualized.. The cystic duct was bluntly dissected until the union of the cystic duct and common bile duct was seen. The cystic duct was then divided and sealed with the Harmonic scissors. A PDS Endoloop was then placed throughout the cystic duct stump. The cystic artery divided and sealed with the Harmonic scissors. The gallbladder was then removed from the liver bed using Harmonic scissors. The gallbladder was then extracted through the epigastric port site. Operative field was checked for any bleeding spots and Harmonic scissors was used to coagulate the liver bed. The abdomen was irrigated. The trocars were removed. The skin was closed using interrupted 3-0 Vicryl suture. Dermabond dressing were applied. The patient tolerated the procedure well.
== END 2018-04-03 11:28 | disposition home or self-care (01) ==
LOC: OR 06:38
PROVIDERS: ATTEND Surgery
DX: K81.1 Chronic cholecystitis (principal); F17.200 Nicotine dependence, unspecified, uncomplicated; E78.5 Hyperlipidemia, unspecified; E07.9 Disorder of thyroid, unspecified; I25.10 Atherosclerotic heart disease of native coronary artery without angina pectoris; G40.909 Epilepsy, unspecified, not intractable, without status epilepticus; I73.9 Peripheral vascular disease, unspecified; G89.29 Other chronic pain; K21.9 Gastro-esophageal reflux disease without esophagitis; Z79.82 Long term (current) use of aspirin; Z86.73 Personal history of transient ischemic attack (TIA), and cerebral infarction without residual deficits; Z95.5 Presence of coronary angioplasty implant and graft; Z79.899 Other long term (current) drug therapy; Z79.02 Long term (current) use of antithrombotics/antiplatelets; Z88.8 Allergy status to other drugs, medicaments and biological substances
CPT/HCPCS: 88304; 47562; J2250; J1644; J1100; J2710; J2175; J2405; J2001; J3010; J1885; J0330; J2704

== ENCOUNTER → 2018-07-23 | Outpatient (CLI) | payer OTHER ==
--- NOTE | 2018-07-23 15:52 | US ---
EXAMINATION TYPE: US thyroid st tissue head/neck DATE OF EXAM: 07/23/2018 COMPARISON: NONE CLINICAL HISTORY: E04.1 thyroid nodule. GLAND SIZE: Right Lobe: cm Overall Parenchyma: Left Lobe: cm Overall Parenchyma: Isthmus Thickness: cm NODULES RIGHT: # of nodules measured on right: 1. X x cm nodule at the pole with margins; . This nodule is and shows . Prior size: x x cm 2. X x cm nodule at the pole with margins; . This nodule is and shows . Prior size: x x cm 3. X x cm nodule at the pole with margins; . This nodule is and shows . Prior size: x x cm 4. X x cm nodule at the pole with margins; . This nodule is and shows . Prior size: x x cm LEFT: # of nodules measured on left: 1. X x cm nodule at the pole with margins; . This nodule is and shows . Prior size: x x cm 2. X x cm nodule at the pole with margins; . This nodule is and shows . Prior size: x x cm 3. X x cm nodule at the pole with margins; . This nodule is and shows . Prior size: x x cm 4. X x cm nodule at the pole with margins; . This nodule is and shows . Prior size: x x cm ISTHMUS: # of nodules measured in the isthmus: 1. X x cm nodule at the pole with margins; . This nodule is and shows . Prior size: x x cm Bilateral neck scanned, no evidence of lymphadenopathy. IMPRESSION: EXAMINATION TYPE: US thyroid st tissue head/neck DATE OF EXAM: 07/23/2018 COMPARISON: US 07/03/17 CLINICAL HISTORY: E04.1 thyroid nodule. GLAND SIZE: Right Lobe: 5.7 x 1.5 x 1.3 cm Overall Parenchyma: homogenous Left Lobe: 5.1 x 1.8 x 0.8 cm Overall Parenchyma: homogeneous Isthmus Thickness: 0.3 cm NODULES RIGHT: # of nodules measured on right: 1 1. 0.6 X 0.4 x 0.4 cm hypoechoic solid nodule at the upper pole with well-defined margins; . This nodule is as wide as tall and shows intranodular vascularity. Prior size: 0.6 x 0.5 x 0.3 cm LEFT: # of nodules measured on left: 1 1. 1.0 X 0.8 x 0.5 cm hypoechoic mixed nodule at the mid pole with well-defined margins; . This no dule is wider than tall and shows intranodular vascularity. Prior size: 1.0 x 0.9 x 0.5 cm ISTHMUS: # of nodules measured in the isthmus: 1 Edge of isthmus/right lobe. 1. 0.4 X 0.5 x 0.4 cm hypoechoic solid nodule at the upper pole with well-defined margins; . This nodule is wider than tall and shows intranodular vascularity. Prior size: No prior Bilateral neck scanned, no evidence of lymphadenopathy. IMPRESSION: 1. Stable thyroid nodules
== END | disposition home or self-care (01) ==
LOC: RADUSWWP 14:28
PROVIDERS: ATTEND Surgery
DX: E04.2 Nontoxic multinodular goiter (principal); Z88.8 Allergy status to other drugs, medicaments and biological substances
CPT/HCPCS: 76536

== ENCOUNTER 2018-12-10 19:02 | Emergency (ER) | payer OTHER ==
[2018-12-10 19:10] VITALS: RESP 18
--- NOTE | 2018-12-10 20:10 | ED ---
General Adult HPI - General Chief complaint: Recheck/Abnormal Lab/Rx Stated complaint: Poss stroke/neck swelling Time Seen by Provider: 12/10/18 19:24 Source: patient Mode of arrival: ambulatory Limitations: no limitations - History of Present Illness Initial comments: Patient is a 53-year-old female presents emergency Department for mass on her face. Patient reports waking up this morning when she noticed a mass on the right submandibular region. Patient reports the mass was initially larger and is slowly decreased in size. Patient denies dysphagia, changes in voice, drooling or sore throat. Patient denies fever, nausea, vomiting, headache, blurry vision, chest pain or chest tightness. Patient denies any erythema or tenderness in the region. Patient reports that it is more of a discomfort. Patient states that she already called her primary care for evaluation but could not get in on time. - Related Data Home Medications Medication Instructions Recorded Confirmed Aspirin 81 mg PO DAILY 11/24/16 03/22/18 Atorvastatin [Lipitor] 80 mg PO DAILY 11/24/16 03/22/18 Ranitidine HCl [Zantac] 150 mg PO BID 11/24/16 03/22/18 levETIRAcetam [Keppra] 500 mg PO Q12HR 11/24/16 03/22/18 Gabapentin [Neurontin] 600 mg PO DAILY PRN 02/16/18 03/22/18 HYDROcodone/APAP 10-325MG [[place] 1 tab PO Q6HR PRN 02/16/18 03/22/18 10-325] buPROPion HCL [Wellbutrin SR] 150 mg PO BID 02/16/18 03/22/18 Previous Rx's Medication Instructions Recorded Clopidogrel [Plavix] 75 mg PO DAILY #0 09/21/17 Cephalexin [Keflex] 500 mg PO Q6HR #40 cap 12/10/18 Allergies Allergy/AdvReac Type Severity Reaction Status Date / Time prochlorperazine Allergy CAN'T Verified 04/03/18 06:59 [From Compazine] REMEMBER REACTION Review of Systems ROS Statement: Those systems with pertinent positive or pertinent negative responses have been documented in the HPI. ROS Other: All systems not noted in ROS Statement are negative. Past Medical History Past Medical History: Chest Pain / Angina, CVA/TIA, GERD/Reflux, Hyperlipidemia, Seizure Disorder, Thyroid Disorder, Vascular Disorder Additional Past Medical History / Comment(s): CVA "several last march", Chronic back pain,. last seizure 03/2017,PVD,"lt cerebral artery 100%" 09/20/17 History of Any Multi-Drug Resistant Organisms: None Reported Past Surgical History: Heart Catheterization With Stent Additional Past Surgical History / Comment(s): stents merly iliac artery 07/16. , COLONOSCOPY AND EGD Past Anesthesia/Blood Transfusion Reactions: Family History of Problems w/ Anesthesia Additional Past Anesthesia/Blood Transfusion Reaction / Comment(s): sister shakes with anesthesia for several days after Date of Last Stent Placement:: 06/2017 Past Psychological History: Anxiety, Depression Smoking Status: Current every day smoker - Past Family History Father Family Medical History: Cancer Additional Family Medical History / Comment(s): lung cancer Mother Family Medical History: Cancer, CVA/TIA Sister(s) Family Medical History: Cancer, Deep Vein Thrombosis (DVT), Pulmonary Embolus Additional Family Medical History / Comment(s): breast cancer Brother(s) Family Medical History: Cancer Additional Family Medical History / Comment(s): prostate cancer General Exam Limitations: no limitations General appearance: alert, in no apparent distress Head exam: Present: atraumatic, normocephalic, normal inspection Eye exam: Present: normal appearance, PERRL, EOMI Pupils: Present: normal accommodation ENT exam: Present: normal exam, normal oropharynx (No enlarged or erythematous tonsils, no oral lesions,. Dental abscesses. No uveal deviation), mucous membranes moist, TM's normal bilaterally, normal external ear exam Neck exam: Present: normal inspection, full ROM, lymphadenopathy (Right submandibular) Respiratory exam: Present: normal lung sounds bilaterally Cardiovascular Exam: Present: regular rate, normal rhythm, normal heart sounds Extremities exam: Present: normal inspection, full ROM Back exam: Present: normal inspection, full ROM Neurological exam: Present: alert, oriented X3 Psychiatric exam: Present: normal affect, normal mood Skin exam: Present: warm, intact, normal color Course Vital Signs 12/10/18 19:05 Temperature 98.4 F Pulse Rate 82 Respiratory 18 Rate Blood Pressure 150/93 O2 Sat by Pulse 98 Oximetry Medical Decision Making - Medical Decision Making Patient is a 53-year-old female presenting to emergency department with right- sided submandibular mass. Based on history and physical examination, the mass in the submandibular region appears to be a possible lymphadenopathy or mild inflammation of the salivary gland or Sialolithiasis. The patient does not appear to be symptomatic and her vitals are stable. I'm going to treat the patient prophylactically and advised her to follow-up with primary care for further management. Strict return parameters were thoroughly discussed with patient who is understanding and agreeable. Case discussed with physician. Disposition Clinical Impression: Submandibular lymphadenopathy Disposition: HOME SELF-CARE Condition: Stable Instructions (If sedation given, give patient instructions): Lymphadenopathy (ED) Additional Instructions: Please take prescribed medication as directed. Please follow-up with primary care. Please return to emergency department if symptoms worsen. Is patient prescribed a controlled substance at d/c from ED?: No Referrals: Kiera Porter DO [Primary Care Provider] - 1-2 days Time of Disposition: 20:08
[2018-12-10 20:31] VITALS: BP 161/94; PULSE 65; TEMP 97.8
== END 2018-12-10 20:31 | disposition home or self-care (01) ==
LOC: EC 19:02
DX: R59.0 Localized enlarged lymph nodes (principal); K21.9 Gastro-esophageal reflux disease without esophagitis; E78.5 Hyperlipidemia, unspecified; G40.909 Epilepsy, unspecified, not intractable, without status epilepticus; I73.9 Peripheral vascular disease, unspecified; F32.9 Major depressive disorder, single episode, unspecified; F17.200 Nicotine dependence, unspecified, uncomplicated; Z86.73 Personal history of transient ischemic attack (TIA), and cerebral infarction without residual deficits; Z95.5 Presence of coronary angioplasty implant and graft; Z98.890 Other specified postprocedural states; Z79.82 Long term (current) use of aspirin; Z79.899 Other long term (current) drug therapy; Z88.8 Allergy status to other drugs, medicaments and biological substances
CPT/HCPCS: 99283

== ENCOUNTER 2019-02-03 17:23 | Emergency (ER) | payer OTHER ==
[2019-02-03 17:30] VITALS: RESP 18
[2019-02-03] MEDS ORDERED: SODIUM CHLORIDE 0.9% 1,000 ML IV STA ×2 (17:58)
[2019-02-03] MEDS ORDERED: KETOROLAC 30 MG/ML 1 ML VIAL IVP STA (17:58)
[2019-02-03] MEDS ORDERED: CLINDAMYCIN 600 MG in DEXTROSE 5% IN WATER 50 ML IVPB STA ×2 (18:00)
--- NOTE | 2019-02-03 18:06 | ED ---
ENT HPI - General Chief complaint: ENT Stated complaint: dental infection Time Seen by Provider: 02/03/19 17:41 Source: patient, RN notes reviewed Mode of arrival: ambulatory Limitations: no limitations - History of Present Illness Initial comments: This is a 53-year-old female who states she has a dental infection for she supposed to get 2 molars removed this week has been on amoxicillin and only has a short supply left but feels like she is getting worse not better she has a lot of pain she had nausea vomiting lightheadedness and dizziness over last day or so decreased oral intake she states she has a lot of left lower gum pain and left ear pain no loss of hearing however no loss of function to her upper or lower extremity she does states she has a history of a left cerebral artery occlusion and he has had TIAs and strokes in the past she states these. She is had yesterday was nothing like this at all. There was no focality to it and as she is since resolved no other modifying factors at this time she does states she called her dentist who did refer her to the emergency department for possible IV antibiotics and further evaluation. MD complaint: tooth pain, ear pain - Related Data Home Medications Medication Instructions Recorded Confirmed Atorvastatin [Lipitor] 80 mg PO DAILY 11/24/16 02/03/19 Ranitidine HCl [Zantac] 150 mg PO BID 11/24/16 02/03/19 HYDROcodone/APAP 10-325MG [[place] 1 tab PO QID PRN 02/16/18 02/03/19 10-325] Amoxicillin 500 mg PO TID 02/03/19 02/03/19 Metoprolol Tartrate [Lopressor] 12.5 mg PO BID 02/03/19 02/03/19 levETIRAcetam [Keppra] 500 mg PO BID 02/03/19 02/03/19 Previous Rx's Medication Instructions Recorded Clopidogrel [Plavix] 75 mg PO DAILY #0 09/21/17 Clindamycin [Cleocin] 450 mg PO Q6H #40 capsule 02/03/19 Ibuprofen 800 mg PO Q6HR PRN #20 tablet 02/03/19 Allergies Allergy/AdvReac Type Severity Reaction Status Date / Time prochlorperazine Allergy CAN'T Verified 02/03/19 17:56 [From Compazine] REMEMBER REACTION Review of Systems ROS Statement: Those systems with pertinent positive or pertinent negative responses have been documented in the HPI. ROS Other: All systems not noted in ROS Statement are negative. Past Medical History Past Medical History: Chest Pain / Angina, CVA/TIA, GERD/Reflux, Hyperlipidemia, Seizure Disorder, Thyroid Disorder, Vascular Disorder Additional Past Medical History / Comment(s): CVA "several last march", Chronic back pain,. last seizure 03/2017,PVD,"lt cerebral artery 100%" 09/20/17. several mini strokes History of Any Multi-Drug Resistant Organisms: None Reported Past Surgical History: Heart Catheterization With Stent Additional Past Surgical History / Comment(s): stents merly iliac artery 07/16. , COLONOSCOPY AND EGD Past Anesthesia/Blood Transfusion Reactions: Family History of Problems w/ Anesthesia Additional Past Anesthesia/Blood Transfusion Reaction / Comment(s): sister shakes with anesthesia for several days after Date of Last Stent Placement:: 06/2017 Past Psychological History: Anxiety, Depression Smoking Status: Current every day smoker Past Alcohol Use History: None Reported Past Drug Use History: None Reported - Past Family History Father Family Medical History: Cancer Additional Family Medical History / Comment(s): lung cancer Mother Family Medical History: Cancer, CVA/TIA Sister(s) Family Medical History: Cancer, Deep Vein Thrombosis (DVT), Pulmonary Embolus Additional Family Medical History / Comment(s): breast cancer Brother(s) Family Medical History: Cancer Additional Family Medical History / Comment(s): prostate cancer General Exam - General Exam Comments Initial Comments: This is a well-developed well-nourished awake alert oriented 3 female Limitations: no limitations General appearance: alert, anxious Head exam: Present: atraumatic, normocephalic, normal inspection Eye exam: Present: normal appearance, PERRL, EOMI. Absent: scleral icterus, conjunctival injection, periorbital swelling ENT exam: Present: mucous membranes dry, other (Left lower molars are eroded down to the gumline 2 localized erythema no drainage no evidence of a drainable collection of pus. Tenderness palpation very tender subcu mandibular nodes area examination left ear canal reveals some cerumen but no evidence of any erythema to the tympanic membrane. No drainage or discharge.) Neck exam: Present: full ROM, other (No Stridor JVD or bruits, left submandibular nodes as noted above to palpation) Respiratory exam: Present: normal lung sounds bilaterally. Absent: respiratory distress, wheezes, rales, rhonchi, stridor Cardiovascular Exam: Present: regular rate, normal rhythm, normal heart sounds. Absent: systolic murmur, diastolic murmur, rubs, gallop, clicks GI/Abdominal exam: Present: soft, normal bowel sounds. Absent: distended, tenderness, guarding, rebound, rigid Extremities exam: Present: normal inspection, full ROM, normal capillary refill. Absent: tenderness, pedal edema, joint swelling, calf tenderness Back exam: Present: normal inspection Neurological exam: Present: alert, oriented X3, CN II-XII intact Psychiatric exam: Present: normal affect, normal mood Skin exam: Present: warm, dry, intact, normal color. Absent: rash Course Vital Signs 02/03/19 02/03/19 17:25 19:45 Temperature 97.4 F L 98.4 F Pulse Rate 95 79 Respiratory 18 18 Rate Blood Pressure 187/80 143/98 O2 Sat by Pulse 100 98 Oximetry Medical Decision Making - Medical Decision Making Patient. Some relief after the medication administration did get IV fluids as she did demonstrate dehydration and [place] changed to clindamycin and she did receive an IV dose. She will be discharged on the same for oral administration. I did recommend ambusol saw or topically sec to the gumline. Patient is a continue with the follow-up with her dentist. - Lab Data Result diagrams: 02/03/19 18:20 02/03/19 18:20 Lab Results 02/03/19 02/03/19 Range/Units 18:20 18:20 WBC 12.0 H (3.8-10.6) k/uL RBC 4.93 (3.80-5.40) m/uL Hgb 14.1 (11.4-16.0) gm/dL Hct 44.2 (34.0-46.0) % MCV 89.7 (80.0-100.0) fL MCH 28.6 (25.0-35.0) pg MCHC 31.9 (31.0-37.0) g/dL RDW 13.4 (11.5-15.5) % Plt Count 296 (150-450) k/uL Neutrophils % 68 % Lymphocytes % 21 % Monocytes % 5 % Eosinophils % 2 % Basophils % 2 % Neutrophils # 8.2 H (1.3-7.7) k/uL Lymphocytes # 2.6 (1.0-4.8) k/uL Monocytes # 0.6 (0-1.0) k/uL Eosinophils # 0.3 (0-0.7) k/uL Basophils # 0.3 H (0-0.2) k/uL Sodium 142 (137-145) mmol/L Potassium 3.9 (3.5-5.1) mmol/L Chloride 103 (98-107) mmol/L Carbon Dioxide 32 H (22-30) mmol/L Anion Gap 7 mmol/L BUN 21 H (7-17) mg/dL Creatinine 0.73 (0.52-1.04) mg/dL Est GFR (CKD-EPI)AfAm >90 (>60 ml/min/1.73 sqM) Est GFR (CKD-EPI)NonAf >90 (>60 ml/min/1.73 sqM) Glucose 97 (74-99) mg/dL Calcium 10.3 H (8.4-10.2) mg/dL Total Bilirubin 0.3 (0.2-1.3) mg/dL AST 26 (14-36) U/L ALT 25 (9-52) U/L Alkaline Phosphatase 70 (38-126) U/L Total Protein 7.3 (6.3-8.2) g/dL Albumin 4.2 (3.5-5.0) g/dL Disposition Clinical Impression: Dental implant pain, Pain due to dental caries, Gingivitis Narrative: Medications sent here for pharmacy of choice Disposition: HOME SELF-CARE Condition: Good Instructions (If sedation given, give patient instructions): Gingivostomatitis (ED), Toothache (ED) Additional Instructions: Keep your follow-up with your dentist Prescriptions: Clindamycin [Cleocin] 450 mg PO Q6H #40 capsule Ibuprofen 800 mg PO Q6HR PRN #20 tablet PRN Reason: Pain Is patient prescribed a controlled substance at d/c from ED?: No Referrals: Kiera Porter DO [Primary Care Provider] - 1-2 days
[2019-02-03 18:45] LABS: Basophils # (A) 0.3 k/uL (0-0.2); Basophils % (A) 2 %; Eosinophils # (A) 0.3 k/uL (0-0.7); Eosinophils % (A) 2 %; HCT 44.2 % (34.0-46.0); HGB 14.1 gm/dL (11.4-16.0); Lymphocytes # (A) 2.6 k/uL (1.0-4.8); Lymphocytes % (A) 21 %; MCH 28.6 pg (25.0-35.0); MCHC 31.9 g/dL (31.0-37.0); MCV 89.7 fL (80.0-100.0); Mean Platelet Volume 6.8; Monocytes # (A) 0.6 k/uL (0-1.0); Monocytes % (A) 5 %; Neutrophils # (A) 8.2 k/uL (1.3-7.7); Neutrophils % (A) 68 %; Platelet Count 296 k/uL (150-450); RBC 4.93 m/uL (3.80-5.40); RDW 13.4 % (11.5-15.5)
[2019-02-03 18:56] LABS: ALT 25 U/L (9-52); AST 26 U/L (14-36); African American GFR (CKD) >90 (>60 ml/min/1.73 sqM); Albumin 4.2 g/dL (3.5-5.0); Alkaline Phosphatase 70 U/L (38-126); Anion Gap 7 mmol/L; Blood Urea Nitrogen 21 mg/dL (7-17); Calcium 10.3 mg/dL (8.4-10.2); Carbon Dioxide 32 mmol/L (22-30); Chloride 103 mmol/L (98-107); Glucose 97 mg/dL (74-99); Potassium 3.9 mmol/L (3.5-5.1); Sodium 142 mmol/L (137-145); Total Bilirubin 0.3 mg/dL (0.2-1.3); Total Protein 7.3 g/dL (6.3-8.2)
[2019-02-03] MEDS ORDERED: HYDROmorphone 1 MG/ML 1 ML SYRINGE IVP STA (19:27)
[2019-02-03 22:54] VITALS: BP 149/94; PULSE 74; TEMP 97.3
== END 2019-02-03 22:36 | disposition home or self-care (01) ==
LOC: EC 17:23
DX: T85.848A Pain due to other internal prosthetic devices, implants and grafts, initial encounter (principal); K05.10 Chronic gingivitis, plaque induced; K02.9 Dental caries, unspecified; H92.02 Otalgia, left ear; K21.9 Gastro-esophageal reflux disease without esophagitis; E78.5 Hyperlipidemia, unspecified; G40.909 Epilepsy, unspecified, not intractable, without status epilepticus; F17.200 Nicotine dependence, unspecified, uncomplicated; Z86.73 Personal history of transient ischemic attack (TIA), and cerebral infarction without residual deficits; Z95.5 Presence of coronary angioplasty implant and graft; Z79.899 Other long term (current) drug therapy; Z88.8 Allergy status to other drugs, medicaments and biological substances
CPT/HCPCS: 36415; 80053; 85025; 87040; 99283; 96365; 96375 ×2; 96361 ×3; J1885; J1170

== ENCOUNTER 2019-03-06 12:26 | Observation (INO) | payer OTHER ==
[2019-03-06 13:03] LABS: Basophils # (A) 0.1 k/uL (0-0.2); Basophils % (A) 1 %; Eosinophils # (A) 0.2 k/uL (0-0.7); Eosinophils % (A) 2 %; HCT 41.2 % (34.0-46.0); HGB 13.7 gm/dL (11.4-16.0); Lymphocytes % (A) 29 %; MCH 30.5 pg (25.0-35.0); MCHC 33.2 g/dL (31.0-37.0); MCV 92.1 fL (80.0-100.0); Mean Platelet Volume 6.4; Monocytes # (A) 0.4 k/uL (0-1.0); Monocytes % (A) 5 %; Neutrophils # (A) 4.2 k/uL (1.3-7.7); Neutrophils % (A) 61 %; Platelet Count 246 k/uL (150-450); RBC 4.48 m/uL (3.80-5.40); RDW 12.8 % (11.5-15.5); WBC 6.8 k/uL (3.8-10.6)
--- NOTE | 2019-03-06 13:08 | XR ---
EXAMINATION TYPE: XR chest 2V DATE OF EXAM: 03/06/2019 COMPARISON: Prior chest x-ray 02/21/[address] 09/20/2017 HISTORY: Chest pain TECHNIQUE: Frontal and lateral views of the chest are obtained. FINDINGS: Patient is rotated. There are overlying cardiac leads. There is a spinal curvature as on pr ior. Nodular densities present at the right lung apex measuring 9 mm I question overlying artifact as there is a snap present over the right shoulder. Apical pleural thickening is present at this level. There is no pleural effusion or pneumothorax seen. The cardiac silhouette size is within normal ríos its. The aorta is dense. The osseous structures are intact. IMPRESSION: Questionable artifact at the right lung apex versus lung nodule. No other evident cardio pulmonary disease.
[2019-03-06 13:15] LABS: ALT 413 U/L (9-52); AST 291 U/L (14-36); African American GFR (CKD) >90 (>60 ml/min/1.73 sqM); Albumin 4.1 g/dL (3.5-5.0); Alkaline Phosphatase 141 U/L (38-126); Anion Gap 8 mmol/L; Blood Urea Nitrogen 12 mg/dL (7-17); Calcium 9.5 mg/dL (8.4-10.2); Carbon Dioxide 26 mmol/L (22-30); Chloride 105 mmol/L (98-107); Glucose 104 mg/dL (74-99); INR 0.9 (<1.2); Magnesium 2.2 mg/dL (1.6-2.3); Partial Thromboplastin Time 25.2 sec (22.0-30.0); Prothrombin Time 9.4 sec (9.0-12.0); Sodium 139 mmol/L (137-145); Total Bilirubin 0.3 mg/dL (0.2-1.3); Total Protein 6.9 g/dL (6.3-8.2)
[2019-03-06] MEDS ORDERED: ASPIRIN 81 MG PO STA (13:51)
--- NOTE | 2019-03-06 14:07 | ED ---
Chest Pain HPI - General Chief Complaint: Chest Pain Stated Complaint: chest pain Time Seen by Provider: 03/06/19 12:35 Source: patient Mode of arrival: ambulatory Limitations: no limitations - History of Present Illness Initial Comments: The patient is a 53-year-old female with past medical history of iliac artery stenting who presents emergency Department with reported right-sided chest pain. She states that the pain started early this morning. It woke her up from sleep. It is described as a sharp shooting sensation which radiates into her right upper extremity. She denies any ripping or tearing sensation to her back. Denies any weakness in her upper extremities. Denies a history of cardiac disease. Reports that she is supposed to have a stress test performed as she does have vascular occlusions in other areas however has been continuously putting it off. She denies associated diaphoresis, presyncope or syncope. Denies fevers, chills or cough. No history of IVDA. Denies a pleuritic chest pain. No calf pain or swelling. Denies a history of DVT or PE. No pedal edema or unilateral calf pain or swelling. There are no other alleviating, precipitating or modifying factors - Related Data Home Medications Medication Instructions Recorded Confirmed Atorvastatin [Lipitor] 80 mg PO DAILY 11/24/16 03/06/19 Ranitidine HCl [Zantac] 150 mg PO BID 11/24/16 03/06/19 HYDROcodone/APAP 10-325MG [[place] 1 tab PO QID PRN 02/16/18 03/06/19 10-325] Metoprolol Tartrate [Lopressor] 12.5 mg PO BID 02/03/19 03/06/19 levETIRAcetam [Keppra] 500 mg PO BID 02/03/19 03/06/19 Previous Rx's Medication Instructions Recorded Clopidogrel [Plavix] 75 mg PO DAILY #0 09/21/17 Allergies Allergy/AdvReac Type Severity Reaction Status Date / Time prochlorperazine Allergy CAN'T Verified 03/06/19 13:08 [From Compazine] REMEMBER REACTION Review of Systems ROS Statement: Those systems with pertinent positive or pertinent negative responses have been documented in the HPI. ROS Other: All systems not noted in ROS Statement are negative. EKG Findings - EKG Comments: EKG Findings:: EKG demonstrates a normal sinus rhythm with a ventricular rate of 64. TN interval 138. QRS E4. QTC 420. There are no acute ST segment elevation depressions concerning for ischemic changes Past Medical History Past Medical History: Chest Pain / Angina, CVA/TIA, GERD/Reflux, Hyperlipidemia, Seizure Disorder, Thyroid Disorder, Vascular Disorder Additional Past Medical History / Comment(s): CVA "several last march", Chronic back pain,. last seizure 03/2017,PVD,"lt cerebral artery 100%" 09/20/17. several mini strokes History of Any Multi-Drug Resistant Organisms: None Reported Past Surgical History: Heart Catheterization With Stent Additional Past Surgical History / Comment(s): stents merly iliac artery 07/16. , COLONOSCOPY AND EGD Past Anesthesia/Blood Transfusion Reactions: Family History of Problems w/ Anesthesia Additional Past Anesthesia/Blood Transfusion Reaction / Comment(s): sister shakes with anesthesia for several days after Date of Last Stent Placement:: 06/2017 Past Psychological History: Anxiety, Depression Smoking Status: Current every day smoker Past Alcohol Use History: None Reported Past Drug Use History: None Reported - Past Family History Father Family Medical History: Cancer Additional Family Medical History / Comment(s): lung cancer Mother Family Medical History: Cancer, CVA/TIA Sister(s) Family Medical History: Cancer, Deep Vein Thrombosis (DVT), Pulmonary Embolus Additional Family Medical History / Comment(s): breast cancer Brother(s) Family Medical History: Cancer Additional Family Medical History / Comment(s): prostate cancer General Exam Limitations: no limitations General appearance: alert, in no apparent distress Head exam: Present: atraumatic, normocephalic, normal inspection Eye exam: Present: normal appearance, PERRL, EOMI. Absent: scleral icterus, conjunctival injection, periorbital swelling ENT exam: Present: normal exam, mucous membranes moist Neck exam: Present: normal inspection. Absent: tenderness, meningismus, lymphadenopathy Respiratory exam: Present: normal lung sounds bilaterally. Absent: respiratory distress, wheezes, rales, rhonchi, stridor Cardiovascular Exam: Present: regular rate, normal rhythm, normal heart sounds. Absent: systolic murmur, diastolic murmur, rubs, gallop, clicks GI/Abdominal exam: Present: soft, normal bowel sounds. Absent: distended, tenderness, guarding, rebound, rigid Extremities exam: Present: normal inspection, full ROM, normal capillary refill. Absent: tenderness, pedal edema, joint swelling, calf tenderness Back exam: Present: normal inspection Neurological exam: Present: alert, oriented X3, CN II-XII intact Psychiatric exam: Present: normal affect, normal mood Skin exam: Present: warm, dry, intact, normal color. Absent: rash Course Vital Signs 03/06/19 03/06/19 03/06/19 12:32 12:50 13:20 Temperature 97.8 F Pulse Rate 68 62 Respiratory 18 31 H 15 Rate Blood Pressure 153/99 122/81 O2 Sat by Pulse 100 98 98 Oximetry 03/06/19 03/06/19 03/06/19 13:30 14:10 14:20 Temperature Pulse Rate 75 76 67 Respiratory 22 21 15 Rate Blood Pressure 122/81 133/87 111/68 O2 Sat by Pulse 98 98 Oximetry 03/06/19 03/06/19 03/06/19 14:30 15:00 15:30 Temperature Pulse Rate 63 72 60 Respiratory 13 11 L 14 Rate Blood Pressure 111/68 127/80 102/80 O2 Sat by Pulse 99 99 Oximetry 03/06/19 03/06/19 16:00 16:30 Temperature Pulse Rate 62 78 Respiratory 15 32 H Rate Blood Pressure 118/85 119/76 O2 Sat by Pulse Oximetry Chest Pain MDM - MDM Upon arrival the patient is placed in room 5. A history and physical exam was performed. The patient had taken an 81 mg aspirin early this morning. I did provide her with 324 mg chewable aspirin. She states that she is pain-free at this time. A 12-lead EKG was performed. Laboratory studies were conducted and the patient was sent for a chest x-ray. CMP shows elevated AST of 291, ALT 413, alk phos 141. First troponin is negative. Because of the patient's abnormal liver studies I did recommend an abdominal ultrasound which demonstrated no acute findings. I also performed a chest x-ray which demonstrated artifact of the right lung apex versus lung nodule. I discussed these results with the patient. The patient does have history of vascular disease I did recommend that she be admitted to the hospital for cardiac workup. A call and discuss the case with Dr. Younger who accepted admission for the patient. I will place cardiology consult. I also ordered an echo. The patient remained in pain-free condition was transported to the floor Disposition Clinical Impression: Chest pain Disposition: ADMITTED IP TO THIS HOSP Condition: Stable Is patient prescribed a controlled substance at d/c from ED?: No Decision to Admit Reason: Admit from EC Decision Date: 03/06/19 Decision Time: 17:03
--- NOTE | 2019-03-06 15:44 | US ---
EXAMINATION TYPE: US abdomen limited DATE OF EXAM: 03/06/2019 COMPARISON: CT 01/29/2018 CLINICAL HISTORY: right upper quadrant - elevated liver enzymes. GB removed 06/2018 EXAM MEASUREMENTS: Liver Length: 14.3 cm CBD: 1.0 cm CHD: 0.9 cm Right Kidney: 9.2 x 4.7 x 5.3 cm Pancreas: Tail obscured by overlying bowel gas. Main pancreatic duct - 2.2 mm. Appears echogenic. Liver: wnl Gallbladder: Surgically absent Evidence for sonographic Urena's sign: neg CBD: Upper limits of normal Right Kidney: Lateral lower pole cystic appearing lesion visualized = 0.7 x 0.9 x 0.7 cm There is no ascites. IMPRESSION: No significant abnormality to account for patient's symptoms. Dilation of the common hepa tic duct, common bile duct likely due to postcholecystectomy change.
[2019-03-06] MEDS ORDERED: NALOXONE 0.4 MG/ML 1 ML VIAL IV PRN (16:46)
[2019-03-06 17:52] VITALS: RESP 18
[2019-03-06 17:59] VITALS: BMI 21.5
[2019-03-06] MEDS: FAMOTIDINE 20 MG TAB PO SCH (19:37)
[2019-03-06] MEDS: HYDROcodone/APAP 10-325MG 1 EACH TAB PO PRN (19:38)
[2019-03-06] MEDS: levETIRAcetam 500 MG TAB PO SCH (19:38)
[2019-03-06] MEDS: METOPROLOL TARTRATE 12.5 MG TAB PO SCH (19:38)
[2019-03-07 06:18] LABS: Basophils % (A) 1 %; Eosinophils # (A) 0.2 k/uL (0-0.7); Eosinophils % (A) 4 %; HCT 40.6 % (34.0-46.0); HGB 13.3 gm/dL (11.4-16.0); Lymphocytes # (A) 2.5 k/uL (1.0-4.8); Lymphocytes % (A) 42 %; MCH 30.9 pg (25.0-35.0); MCHC 32.9 g/dL (31.0-37.0); Mean Platelet Volume 6.5; Monocytes # (A) 0.4 k/uL (0-1.0); Monocytes % (A) 7 %; Neutrophils # (A) 2.6 k/uL (1.3-7.7); Neutrophils % (A) 45 %; Platelet Count 223 k/uL (150-450); RBC 4.32 m/uL (3.80-5.40); WBC 5.8 k/uL (3.8-10.6)
[2019-03-07 06:28] LABS: African American GFR (CKD) >90 (>60 ml/min/1.73 sqM); Anion Gap 5 mmol/L; Blood Urea Nitrogen 18 mg/dL (7-17); Calcium 9.5 mg/dL (8.4-10.2); Carbon Dioxide 28 mmol/L (22-30); Chloride 109 mmol/L (98-107); Glucose 100 mg/dL (74-99); Potassium 4.5 mmol/L (3.5-5.1); Sodium 142 mmol/L (137-145)
[2019-03-07] MEDS ORDERED: ATORVASTATIN 80 MG TAB PO SCH (09:00)
[2019-03-07] MEDS: levETIRAcetam 500 MG TAB PO SCH ×2 (09:04→20:21)
[2019-03-07] MEDS: FAMOTIDINE 20 MG TAB PO SCH ×2 (09:04→20:21)
--- NOTE | 2019-03-07 10:47 | P.CRDCN ---
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 Also she has had 2 CVA's in the past and frequent TIA's, seizure disorder, dyslipidemia, cholecystectomy April 2018 and chronic nicotine dependence. She denies prior history of coronary artery disease and does not follow with a crystal grower for any reason. We have been asked to see her in consultation for chest pain. She states yesterday while sitting down before eating anything she had an acute onset of intense nagging type pain in the epigastric region with radiation to the right anterior chest wall and right shoulder. There was some radiation through to her back and associated nausea and shortness of breath. The pain lasted around 45 minutes and slowly started to subside on its own with no specific alleviating factors. Then again shortly thereafter the pain returned again with no aggravating factors. She denies associated dizziness, vomiting, palpitations or diaphoresis. She has had no further symptoms since arriving at the hospital. EKG reveals sinus mechanism, inferior Q wave with no acute ST or T wave abnormalities noted. Chest x-ray reveals questionable artifact at the right lung apex versus a lung nodule. No acute cardiopulmonary process. Abdominal ultrasound shows no significant abnormality with a dilated common hepatic duct. Laboratory data reviewed, CBC unremarkable, sodium 142, potassium 4.5, creatinine 0.7, AST 291, ALT 413, alkaline phosphatase 141, magnesium 2.2, cardiac enzymes negative 3, proBNP 113. Current daily cardiac medications include atorvastatin 80 mg daily, Lopressor 12.5 mg twice a day and Plavix 75 mg daily per neurology. At the time of my exam: CONSTITUTIONAL: Denies fever. Denies chills. EYES: Denies blurred vision. Denies vision changes. Denies eye pain. EARS, NOSE, MOUTH & THROAT: Denies headache. Denies sore throat. Denies ear pain. CARDIOVASCULAR: Denies chest pain. Denies shortness of breath. Denies orthopnea. Denies PND. Denies palpitations. RESPIRATORY: Denies cough. GASTROINTESTINAL: Denies abdominal pain. Denies diarrhea. Denies constipation. Denies nausea. Denies vomiting. MUSCULOSKELETAL: Denies myalgias. INTEGUMENTARY: Denies pruitis. Denies rash. NEUROLOGIC: Denies numbness. Denies tingling. Denies weakness. PSYCHIATRIC: Denies anxiety. Denies depression. ENDOCRINE: Denies fatigue. Denies weight change. Denies polydipsia. Denies polyurina. GENITOURINARY: Denies burning, hematuria or urgency with micturation. HEMATOLOGIC: Denies history of anemia. Denies bleeding. Blood pressure 106/69 heart rate 62 afebrile maintaining oxygen saturation on room air GENERAL: This is a 53-year-old female in no apparent distress at the time of my examination. HEENT: Head is atraumatic, normocephalic. Pupils are equal, round. Sclerae anicteric. Conjunctivae are clear. Mucous membranes of the mouth are moist. Neck is supple. There is no jugular venous distention. No carotid bruit is heard. LUNGS: Clear to auscultation no wheezes, rales or rhonchi. No chest wall tenderness is noted on palpation or with deep breathing. Diminished bilaterally. HEART: Regular rate and rhythm without murmurs, rubs or gallops. S1 and S2 heard. ABDOMEN: Soft, nontender. Bowel sounds are heard. No organomegaly noted. EXTREMITIES: No evidence of peripheral edema and no calf tenderness noted. VASCULAR: Radial and dorsalis pedis pulses palpated, no evidence of clubbing. NEUROLOGIC: Patient is awake, alert and oriented x3. ASSESSMENT Chest pain, atypical for angina. Acute coronary event is ruled out. Elevated liver enzymes Significant peripheral vascular disease History of CVA and TIA in the past Dyslipidemia Seizure disorder Chronic nicotine dependence PLAN An acute coronary event has been ruled out. Echocardiogram has been obtained and will be reviewed. Ongoing medical management and evaluation of elevated liver enzymes. Hold atorvastatin secondary to elevated liver enzymes. She has significant underlying peripheral vascular disease and likely disease of the coronary arteries as well. Would benefit from outpatient stress testing after GI evaluation of epigastric pain and elevated liver enzymes. Thank you kindly for this consultation. Nurse Practitioner note has been reviewed, I agree with a documented findings and plan of care. Patient was seen and examined. Past Medical History Past Medical History: Chest Pain / Angina, CVA/TIA, GERD/Reflux, Hyperlipidemia, Seizure Disorder, Thyroid Disorder, Vascular Disorder Additional Past Medical History / Comment(s): CVA "several last march", Chronic back pain,. last seizure 03/2017,PVD,"lt cerebral artery 100%" 09/20/17. several mini strokes History of Any Multi-Drug Resistant Organisms: None Reported Past Surgical History: Heart Catheterization With Stent Additional Past Surgical History / Comment(s): stents merly iliac artery 07/16. , COLONOSCOPY AND EGD Past Anesthesia/Blood Transfusion Reactions: Family History of Problems w/ Anesthesia Additional Past Anesthesia/Blood Transfusion Reaction / Comment(s): sister shakes with anesthesia for several days after Date of Last Stent Placement:: 06/2017 Past Psychological History: Anxiety, Depression Smoking Status: Current every day smoker Past Alcohol Use History: None Reported Past Drug Use History: None Reported - Past Family History Father Family Medical History: Cancer Additional Family Medical History / Comment(s): lung cancer Mother Family Medical History: Cancer, CVA/TIA Sister(s) Family Medical History: Cancer, Deep Vein Thrombosis (DVT), Pulmonary Embolus Additional Family Medical History / Comment(s): breast cancer Brother(s) Family Medical History: Cancer Additional Family Medical History / Comment(s): prostate cancer Medications and Allergies Home Medications Medication Instructions Recorded Confirmed Type Atorvastatin [Lipitor] 80 mg PO DAILY 11/24/16 03/06/19 History Ranitidine HCl [Zantac] 150 mg PO BID 11/24/16 03/06/19 History Clopidogrel [Plavix] 75 mg PO DAILY #0 09/21/17 03/06/19 Rx HYDROcodone/APAP 10-325MG [[place] 1 tab PO QID PRN 02/16/18 03/06/19 History 10-325] Metoprolol Tartrate [Lopressor] 12.5 mg PO BID 02/03/19 03/06/19 History levETIRAcetam [Keppra] 500 mg PO BID 02/03/19 03/06/19 History Allergies Allergy/AdvReac Type Severity Reaction Status Date / Time prochlorperazine Allergy CAN'T Verified 03/06/19 13:08 [From Compazine] REMEMBER REACTION Physical Exam Vitals: Vital Signs Temp Pulse Pulse Resp BP BP Pulse Ox 03/07/19 07:00 97.7 F 62 18 106/69 98 03/07/19 04:00 97.6 F 56 L 18 98/63 100 03/06/19 23:58 70 18 03/06/19 23:52 97.6 F 70 18 111/70 96 03/06/19 20:00 71 18 03/06/19 19:10 98.3 F 71 18 106/66 98 03/06/19 17:51 98.2 F 71 18 144/87 98 03/06/19 16:30 78 32 H 119/76 03/06/19 16:00 62 15 118/85 03/06/19 15:30 60 14 102/80 03/06/19 15:00 72 11 L 127/80 99 03/06/19 14:30 63 13 111/68 99 03/06/19 14:20 67 15 111/68 98 03/06/19 14:10 76 21 133/87 03/06/19 13:30 75 22 122/81 98 03/06/19 13:20 62 15 122/81 98 03/06/19 12:50 31 H 98 03/06/19 12:32 97.8 F 68 18 153/99 100 Intake and Output 03/06/19 03/07/19 03/07/19 22:59 06:59 14:59 Intake Total 222 222 Balance 222 222 Intake: Oral 222 222 Other: Voiding Method Toilet Toilet # Voids 1 1 Results 03/07/19 06:01 03/07/19 06:01 Cardiac Enzymes 03/06/19 03/06/19 03/06/19 Range/Units 12:50 12:50 19:23 AST 291 H (14-36) U/L Troponin I <0.012 <0.012 (0.000-0.034) ng/mL 03/07/19 Range/Units 01:04 AST (14-36) U/L Troponin I <0.012 (0.000-0.034) ng/mL Coagulation 03/06/19 Range/Units 12:50 PT 9.4 (9.0-12.0) sec APTT 25.2 (22.0-30.0) sec CBC 03/06/19 03/07/19 Range/Units 12:50 06:01 WBC 6.8 5.8 (3.8-10.6) k/uL RBC 4.48 4.32 (3.80-5.40) m/uL Hgb 13.7 13.3 (11.4-16.0) gm/dL Hct 41.2 40.6 (34.0-46.0) % Plt Count 246 223 (150-450) k/uL Comprehensive Metabolic Panel 03/06/19 03/07/19 Range/Units 12:50 06:01 Sodium 139 142 (137-145) mmol/L Potassium 4.0 4.5 (3.5-5.1) mmol/L Chloride 105 109 H (98-107) mmol/L Carbon Dioxide 26 28 (22-30) mmol/L BUN 12 18 H (7-17) mg/dL Creatinine 0.61 0.70 (0.52-1.04) mg/dL Glucose 104 H 100 H (74-99) mg/dL Calcium 9.5 9.5 (8.4-10.2) mg/dL AST 291 H (14-36) U/L ALT 413 H (9-52) U/L Alkaline Phosphatase 141 H (38-126) U/L Total Protein 6.9 (6.3-8.2) g/dL Albumin 4.1 (3.5-5.0) g/dL Current Medications Generic Name Dose Route Start Last Admin Trade Name Freq PRN Reason Stop Dose Admin Hydrocodone Bitart/Acetaminophen 1 each 03/06/19 16:49 03/06/19 19:38 [place] 10 PO 1 each QID PRN Administration Pain Atorvastatin Calcium 80 mg 03/07/19 09:00 Lipitor PO DAILY [facility] Clopidogrel Bisulfate 75 mg 03/07/19 09:00 Plavix PO DAILY [facility] Famotidine 20 mg 03/06/19 21:00 03/06/19 19:37 Pepcid PO 20 mg BID CHENG Administration Levetiracetam 500 mg 03/06/19 21:00 03/06/19 19:38 Keppra PO 500 mg BID CHENG Administration Metoprolol Tartrate 12.5 mg 03/06/19 21:00 03/06/19 19:38 Lopressor PO 12.5 mg BID CHENG Administration Naloxone HCl 0.2 mg 03/06/19 16:46 Narcan IV Q2M PRN Opioid Reversal Intake and Output 03/06/19 03/07/19 03/07/19 22:59 06:59 14:59 Intake Total 222 222 Balance 222 222 Intake: Oral 222 222 Other: Voiding Method Toilet Toilet # Voids 1 1 03/07/19 06:01 03/07/19 06:01
[2019-03-07 10:54] LABS: Appearance,Urine Cloudy (Clear); Bacteria,Urine Occasional /hpf; Bilirubin,Urine Negative (Negative); Blood,Urine Negative (Negative); Color,Urine Yellow; Glucose,Urine (UA) Negative (Negative); Ketones,Urine Negative (Negative); Leukocyte Esterase,Urine Large (Negative); Mucus,Urine Rare /hpf; Nitrite,Urine Positive (Negative); PH, Urine 5.5 (5.0-8.0); Protein,Urine Negative (Negative); Specific Gravity,Urine 1.017 (1.001-1.035); Squamous Epithelial Cell,Urine 3 /hpf (0-4); Urobilinogen,Urine <2.0 mg/dL (<2.0); WBC,Urine 60 /hpf (0-5)
[2019-03-07] MEDS: CLOPIDOGREL 75 MG TAB PO SCH (11:34)
[2019-03-07] MEDS: HYDROcodone/APAP 10-325MG 1 EACH TAB PO PRN ×2 (11:34→17:02)
[2019-03-07] MEDS: METOPROLOL TARTRATE 12.5 MG TAB PO SCH ×2 (11:34→20:21)
--- NOTE | 2019-03-07 11:53 | P.HPIM ---
History of Present Illness H&P Date: 03/07/19 Chief Complaint: epigastric pain Micki Tsang is a 53 yo F with PMH of peripheral vascular disease with iliac stenting, CVA, TIA, tobacco abuse who presented to the ED after experiencing sudden onset epigastric pain radiating into her RUE. She states she was sitting down before eating lunch when she began to experience a aching sharp pain in her upper abdomen moving into her R arm. She denies experiencing chest pain, shortness of breath, nausea, diaphoresis or palpitations. She has no previous history of heart disease but did experience a TIA approx 1 month ago. Her PCP had recommended an outpatient stress test but she had put it off. In the ED her vitals were stable, WBC 6.8, AST, ALT and Alk phos significantly elevated. Trop negative x3. Abdominal US demonstrated cholecystectomy and dilation of CBD. Review of Systems All systems: negative Constitutional: Denies chills, Denies fever Eyes: denies blurred vision, denies pain Ears, nose, mouth and throat: Denies headache, Denies sore throat Cardiovascular: Denies chest pain, Denies lightheadedness, Denies palpitations, Denies shortness of breath Respiratory: Denies cough Gastrointestinal: Reports abdominal pain, Denies diarrhea, Denies heartburn, Denies nausea, Denies vomiting Genitourinary: Denies dysuria, Denies hematuria Musculoskeletal: Denies myalgias Integumentary: Denies pruritus, Denies rash Neurological: Denies numbness, Denies weakness Psychiatric: Denies anxiety, Denies depression Endocrine: Denies fatigue, Denies weight change Past Medical History Past Medical History: Chest Pain / Angina, CVA/TIA, GERD/Reflux, Hyperlipidemia, Seizure Disorder, Thyroid Disorder, Vascular Disorder Additional Past Medical History / Comment(s): CVA "several last march", Chronic back pain,. last seizure 03/2017,PVD,"lt cerebral artery 100%" 09/20/17. several mini strokes History of Any Multi-Drug Resistant Organisms: None Reported Past Surgical History: Heart Catheterization With Stent Additional Past Surgical History / Comment(s): stents merly iliac artery 07/16. , COLONOSCOPY AND EGD Past Anesthesia/Blood Transfusion Reactions: Family History of Problems w/ Anesthesia Additional Past Anesthesia/Blood Transfusion Reaction / Comment(s): sister shakes with anesthesia for several days after Date of Last Stent Placement:: 06/2017 Past Psychological History: Anxiety, Depression Smoking Status: Current every day smoker Past Alcohol Use History: None Reported Past Drug Use History: None Reported - Past Family History Father Family Medical History: Cancer Additional Family Medical History / Comment(s): lung cancer Mother Family Medical History: Cancer, CVA/TIA Sister(s) Family Medical History: Cancer, Deep Vein Thrombosis (DVT), Pulmonary Embolus Additional Family Medical History / Comment(s): breast cancer Brother(s) Family Medical History: Cancer Additional Family Medical History / Comment(s): prostate cancer Medications and Allergies Home Medications Medication Instructions Recorded Confirmed Type Atorvastatin [Lipitor] 80 mg PO DAILY 11/24/16 03/06/19 History Ranitidine HCl [Zantac] 150 mg PO BID 11/24/16 03/06/19 History Clopidogrel [Plavix] 75 mg PO DAILY #0 09/21/17 03/06/19 Rx HYDROcodone/APAP 10-325MG [[place] 1 tab PO QID PRN 02/16/18 03/06/19 History 10-325] Metoprolol Tartrate [Lopressor] 12.5 mg PO BID 02/03/19 03/06/19 History levETIRAcetam [Keppra] 500 mg PO BID 02/03/19 03/06/19 History Allergies Allergy/AdvReac Type Severity Reaction Status Date / Time prochlorperazine Allergy CAN'T Verified 03/06/19 13:08 [From Compazine] REMEMBER REACTION Physical Exam Vitals: Vital Signs Temp Pulse Pulse Resp BP BP Pulse Ox 03/07/19 07:00 97.7 F 62 18 106/69 98 03/07/19 04:00 97.6 F 56 L 18 98/63 100 03/06/19 23:58 70 18 03/06/19 23:52 97.6 F 70 18 111/70 96 03/06/19 20:00 71 18 03/06/19 19:10 98.3 F 71 18 106/66 98 03/06/19 17:51 98.2 F 71 18 144/87 98 03/06/19 16:30 78 32 H 119/76 03/06/19 16:00 62 15 118/85 03/06/19 15:30 60 14 102/80 03/06/19 15:00 72 11 L 127/80 99 03/06/19 14:30 63 13 111/68 99 03/06/19 14:20 67 15 111/68 98 03/06/19 14:10 76 21 133/87 03/06/19 13:30 75 22 122/81 98 03/06/19 13:20 62 15 122/81 98 03/06/19 12:50 31 H 98 03/06/19 12:32 97.8 F 68 18 153/99 100 Intake and Output 03/06/19 03/07/19 03/07/19 22:59 06:59 14:59 Intake Total 222 222 Balance 222 222 Intake: Oral 222 222 Other: Voiding Method Toilet Toilet Toilet # Voids 1 1 1 General: well nourished, well developed, NAD. Vitals reviewed Eyes: PERRL, EOMI, conjunctiva normal HENT: normocephalic, mucus membranes moist Neck: supple, no JVD Lungs: normal respiratory effort, no wheezes or rales CV: Regular rate and rhythm, no murmur. Peripheral pulses 2+. No carotid bruit Abdomen: soft, nondistended, no organomegaly Lymph: no cervical or axillary LAD Skin: warm and dry. Neuro: A&Ox3, normal mood and affect. CN II-XII intact Results CBC & Chem 7: 03/07/19 06:01 03/07/19 06:01 Labs: Abnormal Lab Results - Last 24 Hours (Table) 03/06/19 03/07/19 03/07/19 Range/Units 12:50 06:01 10:32 Chloride 109 H (98-107) mmol/L BUN 18 H (7-17) mg/dL Glucose 104 H 100 H (74-99) mg/dL AST 291 H (14-36) U/L ALT 413 H (9-52) U/L Alkaline Phosphatase 141 H (38-126) U/L Urine Appearance Cloudy H (Clear) Urine Nitrite Positive H (Negative) Ur Leukocyte Esterase Large H (Negative) Urine WBC 60 H (0-5) /hpf Urine Bacteria Occasional H (None) /hpf Urine Mucus Rare H (None) /hpf Thrombosis Risk Factor Assmnt - Choose All That Apply Any of the Below Risk Factors Present?: Yes Each Factor Represents 1 point: Age 41-60 years Other Risk Factors: No Thrombosis Risk Factor Assessment Total Risk Factor Score: 1 Thrombosis Risk Factor Assessment Level: Low Risk Assessment and Plan (1) Epigastric pain Current Visit: Yes Status: Acute Code(s): R10.13 - EPIGASTRIC PAIN SNOMED Code(s): 44223924 (2) Peripheral vascular disease Current Visit: Yes Status: Acute Code(s): I73.9 - PERIPHERAL VASCULAR DISEASE, UNSPECIFIED SNOMED Code(s): 340640312 (3) Hypertension Current Visit: Yes Status: Acute Code(s): I10 - ESSENTIAL (PRIMARY) HYPERTENSION SNOMED Code(s): 57759226 (4) History of stroke Current Visit: Yes Status: Acute Code(s): Z86.73 - PRSNL HX OF TIA (TIA), AND CEREB INFRC W/O RESID DEFICITS SNOMED Code(s): 057797559 (5) Hyperlipidemia Current Visit: Yes Status: Acute Code(s): E78.5 - HYPERLIPIDEMIA, UNSPECIFIED SNOMED Code(s): 18424650 (6) Chest pain Current Visit: Yes Status: Acute Code(s): R07.9 - CHEST PAIN, UNSPECIFIED SNOMED Code(s): 88530679 (7) Seizure disorder Current Visit: No Status: Acute Code(s): G40.909 - EPILEPSY, UNSP, NOT INTRACTABLE, WITHOUT STATUS EPILEPTICUS SNOMED Code(s): 711590536 (8) Elevated AST (SGOT) Current Visit: Yes Status: Acute Code(s): R74.0 - NONSPEC ELEV OF LEVELS OF TRANSAMNS & LACTIC ACID DEHYDRGNSE SNOMED Code(s): 131953641 (9) Elevated ALT measurement Current Visit: Yes Status: Acute Code(s): R74.0 - NONSPEC ELEV OF LEVELS OF TRANSAMNS & LACTIC ACID DEHYDRGNSE SNOMED Code(s): 916153058 (10) Elevated alkaline phosphatase level Current Visit: Yes Status: Acute Code(s): R74.8 - ABNORMAL LEVELS OF OTHER SERUM ENZYMES SNOMED Code(s): 307403595 Plan: 1. Chest pain. Trop and EKG negative, ACS ruled out. Cardiology consulted for further eval 2. Epigastric pain, elevated LFTs. Abd US with enlarged CBD, liver unremarkable. Hepatitis panel, ferritin, GGT.Consulted surgery for further recs 3. Hx CVA, TIA. Continue statin, ASA, plavix 4. Seizure disorder. Continue keppra 5. Acute cystitis. Keflex bid for 3 days
[2019-03-07] MEDS: CEPHALEXIN 500 MG CAP PO SCH ×2 (12:12→20:21)
--- NOTE | 2019-03-07 12:52 | ECHOF ---
Referral Reason:chest pain MEASUREMENTS -------- HEIGHT: 157.5 cm WEIGHT: 53.5 kg BP: 98/63 RVIDd: 2.9 cm (< 3.3) IVSd: 0.9 cm (0.6 - 1.1) LVIDd: 4.1 cm (3.9 - 5.3) LVPWd: 0.7 cm (0.6 - 1.1) IVSs: 1.1 cm LVIDs: 2.8 cm LVPWs: 1.1 cm LA Diam: 2.7 cm (2.7 - 3.8) LAESV Index (A-L): 24.60 ml/m Ao Diam: 2.6 cm (2.0 - 3.7) AV Cusp: 1.1 cm (1.5 - 2.6) LA Diam: 3.3 cm (2.7 - 3.8) MV EXCURSION: 16.920 mm (> 18.000) MV EF SLOPE: 90 mm/s (70 - 150) EPSS: 0.4 cm MV E Mark: 0.59 m/s MV DecT: 194 ms MV A Mark: 0.57 m/s MV E/A Ratio: 1.04 RAP: 5.00 mmHg RVSP: 14.63 mmHg TAPSE: 20.04 mm FINDINGS -------- Sinus rhythm. This was a technically good study. LV size, wall thickness and systolic function are normal, with an EF greater than 55%. The left ariela tricular size is normal. Overall left ventricular systolic function is normal with, an EF between 5 5 - 60 %. The diastolic filling pattern is normal for the age of the patient 7.28. The right ventricle is normal in size. The left atrial size is normal. Normal LA size by volume 22+/-6 ml/m2. The right atrial size is normal. The aortic valve is trileaflet, and appears structurally normal. No aortic stenosis or regurgitation. Mild mitral regurgitation is present. Mild tricuspid regurgitation present. Right ventricular systolic pressure is normal at < 35 mmHg. There is no evidence of pulmonary hypertension. There is no pulmonic regurgitation present. The aortic root size is normal. There is no pericardial effusion. CONCLUSIONS -------- 1. Sinus rhythm. 2. This was a technically good study. 3. LV size, wall thickness and systolic function are normal, with an EF greater than 55%. 4. The left ventricular size is normal. 5. Overall left ventricular systolic function is normal with, an EF between 55 - 60 %. 6. The diastolic filling pattern is normal for the age of the patient 7.28 7. The right ventricle is normal in size. 8. The left atrial size is normal. 9. Normal LA size by volume 22+/-6 ml/m2. 10. The right atrial size is normal. 11. The aortic valve is trileaflet, and appears structurally normal. No aortic stenosis or regurgitat ion. 12. Mild mitral regurgitation is present. 13. Right ventricular systolic pressure is normal at < 35 mmHg. 14. There is no evidence of pulmonary hypertension. 15. There is no pulmonic regurgitation present. 16. The aortic root size is normal. 17. There is no pericardial effusion. ENGINEERING RESEARCH MANAGER: Valeria Preston RDCS
--- NOTE | 2019-03-07 14:55 | P.GSCN ---
History of Present Illness Consult date: 03/07/19 Reason for Consult: elevated LFTs Requesting physician: Massimo Porter History of present illness: CHIEF COMPLAINT: elevated LFTs HISTORY OF PRESENT ILLNESS: 53-year-old female who was admitted to the hospital secondary to chest pain. Patient reports epigastric pain that radiated to her arm prior to coming to the hospital. She reports her pain is tolerable at this time. Denies nausea or vomiting. Patient was found to have elevated LFTs. General surgery was consulted for further evaluation. PAST MEDICAL HISTORY: See list. PAST SURGICAL HISTORY: See list. SOCIAL HISTORY: No illicit drug use. REVIEW OF SYSTEMS: CONSTITUTIONAL: Denies fever or chills. HEENT: Denies blurred vision, vision changes, or eye pain. Denies hemoptysis CARDIOVASCULAR: Reports chest pain prior to hospitalization RESPIRATORY: No shortness of breath. GASTROINTESTINAL: Refer to HPI for pertinent findings HEMATOLOGIC: Denies bleeding disorders. GENITOURINARY: Denies any blood in urine. SKIN: Denies pruitis. Denies rash. PHYSICAL EXAM: VITAL SIGNS: Reviewed. GENERAL: Well-developed in no acute distress. HEENT: No sclera icterus. Extraocular movements grossly intact. Moist buccal mucosa. Head is atraumatic, normocephalic. ABDOMEN: Soft. Nondistended. Nontender. Positive bowel sounds. No peritoneal signs. NEUROLOGIC: Alert and oriented. Cranial nerves II through XII grossly intact. LABORATORY DATA: Total bilirubin 0.3. AST 291. ALT 413. IMAGING: Abdominal ultrasound: Gallbladder surgically absent. Common bile duct measuring 1.0 cm. Common hepatic duct measuring 0.9 cm. Likely secondary to postcholecystectomy changes. ASSESSMENT: 1. Chest pain 2. Elevated LFTs 3. History of cholecystectomy PLAN: Patient with elevated AST/ALT. However, bilirubin within normal limits. Patient has history of cholecystectomy. Abdominal US reveals dilated CBD, likely secondary to history of cholecystectomy. Do not suspect choledocholithiasis as underlying cause of elevated LFTs. Possibly medication related. Hepatitis panel ordered. Will repeat labs in AM. Diet as tolerated. Will consult GI for further evaluation of elevated LFTs. Nurse practitioner note has been reviewed by physician. Signing provider agrees with the documented findings, assessment, and plan of care. Past Medical History Past Medical History: Chest Pain / Angina, CVA/TIA, GERD/Reflux, Hyperlipidemia, Seizure Disorder, Thyroid Disorder, Vascular Disorder Additional Past Medical History / Comment(s): CVA "several last march", Chronic back pain,. last seizure 03/2017,PVD,"lt cerebral artery 100%" 09/20/17. several mini strokes History of Any Multi-Drug Resistant Organisms: None Reported Past Surgical History: Heart Catheterization With Stent Additional Past Surgical History / Comment(s): stents merly iliac artery 07/16. , COLONOSCOPY AND EGD Past Anesthesia/Blood Transfusion Reactions: Family History of Problems w/ Anesthesia Additional Past Anesthesia/Blood Transfusion Reaction / Comm: sister shakes with anesthesia for several days after Date of Last Stent Placement:: 06/2017 Past Psychological History: Anxiety, Depression Smoking Status: Current every day smoker Past Alcohol Use History: None Reported Past Drug Use History: None Reported - Past Family History Father Family Medical History: Cancer Additional Family Medical History / Comment(s): lung cancer Mother Family Medical History: Cancer, CVA/TIA Sister(s) Family Medical History: Cancer, Deep Vein Thrombosis (DVT), Pulmonary Embolus Additional Family Medical History / Comment(s): breast cancer Brother(s) Family Medical History: Cancer Additional Family Medical History / Comment(s): prostate cancer Medications and Allergies Home Medications Medication Instructions Recorded Confirmed Type Atorvastatin [Lipitor] 80 mg PO DAILY 11/24/16 03/06/19 History Ranitidine HCl [Zantac] 150 mg PO BID 11/24/16 03/06/19 History Clopidogrel [Plavix] 75 mg PO DAILY #0 09/21/17 03/06/19 Rx HYDROcodone/APAP 10-325MG [[place] 1 tab PO QID PRN 02/16/18 03/06/19 History 10-325] Metoprolol Tartrate [Lopressor] 12.5 mg PO BID 02/03/19 03/06/19 History levETIRAcetam [Keppra] 500 mg PO BID 02/03/19 03/06/19 History Allergies Allergy/AdvReac Type Severity Reaction Status Date / Time prochlorperazine Allergy CAN'T Verified 03/06/19 13:08 [From Compazine] REMEMBER REACTION Surgical - Exam Vital Signs Temp Pulse Resp BP Pulse Ox 97.8 F 68 18 153/99 100 03/06/19 12:32 03/06/19 12:32 03/06/19 12:32 03/06/19 12:32 03/06/19 12:32 Results - Labs 03/07/19 06:01 03/07/19 06:01 Abnormal Lab Results - Last 24 Hours (Table) 03/07/19 03/07/19 03/07/19 Range/Units 06:01 06:01 10:32 Chloride 109 H (98-107) mmol/L BUN 18 H (7-17) mg/dL Glucose 100 H (74-99) mg/dL GGT 127 H (12-43) U/L Urine Appearance Cloudy H (Clear) Urine Nitrite Positive H (Negative) Ur Leukocyte Esterase Large H (Negative) Urine WBC 60 H (0-5) /hpf Urine Bacteria Occasional H (None) /hpf Urine Mucus Rare H (None) /hpf Diabetes panel 03/07/19 Range/Units 06:01 Sodium 142 (137-145) mmol/L Potassium 4.5 (3.5-5.1) mmol/L Chloride 109 H (98-107) mmol/L Carbon Dioxide 28 (22-30) mmol/L BUN 18 H (7-17) mg/dL Creatinine 0.70 (0.52-1.04) mg/dL Glucose 100 H (74-99) mg/dL Calcium 9.5 (8.4-10.2) mg/dL Calcium panel 03/07/19 Range/Units 06:01 Calcium 9.5 (8.4-10.2) mg/dL Pituitary panel 03/07/19 Range/Units 06:01 Sodium 142 (137-145) mmol/L Potassium 4.5 (3.5-5.1) mmol/L Chloride 109 H (98-107) mmol/L Carbon Dioxide 28 (22-30) mmol/L BUN 18 H (7-17) mg/dL Creatinine 0.70 (0.52-1.04) mg/dL Glucose 100 H (74-99) mg/dL Calcium 9.5 (8.4-10.2) mg/dL Adrenal panel 03/07/19 Range/Units 06:01 Sodium 142 (137-145) mmol/L Potassium 4.5 (3.5-5.1) mmol/L Chloride 109 H (98-107) mmol/L Carbon Dioxide 28 (22-30) mmol/L BUN 18 H (7-17) mg/dL Creatinine 0.70 (0.52-1.04) mg/dL Glucose 100 H (74-99) mg/dL Calcium 9.5 (8.4-10.2) mg/dL
[2019-03-07 20:05] LABS: Hepatitis A Ab, Total Non-Reactive (Non-Reactive); Hepatitis C IgG Antibody Non-Reactive (Non-Reactive)
[2019-03-07] MEDS ORDERED: MORPHINE SULFATE 4 MG/ML SYRINGE IVP STA (20:19)
--- NOTE | 2019-03-07 21:32 | P.CONS ---
History of Present Illness - Reason for Consult Consult date: 03/07/19 Elevated liver enzymes Requesting physician: Massimo Porter - Chief Complaint Epigastric pain - History of Present Illness 49-year-old female with a medical history significant for peripheral vascular disease with prior iliac stenting, CVA, TIA, and tobacco abuse who presented to the hospital with complaints of abdominal pain. The patient reports severe sharp abdominal pain which occurred in the morning prior to presentation. No prior episodes and no association with sleep. She does report a radiation to her right upper extremity. The pain lasted approximately 40-45 minutes. She reports associated nausea. She did have similar type of pain with gallbladder dysfunction prior to cholecystectomy as well as remotely when she was diagnosed with pancreatitis 15-20 years ago. She reports a remote history 10 years ago for peptic ulcer disease. She denies any history of alcohol abuse, new medications, IV drug use. No constipation, diarrhea, blood per rectum prior to admission. She does report 2 and half days of loose bowel movements earlier in the week. On presentation to the hospital patient had laboratory evaluation significant for a WBC 5.8, hemoglobin 13.3, platelet count 223,000, INR 0.9, alkaline phosphatase 141, total bilirubin 0.3, AST 291 and ALT 413. Ultrasound showed findings of prior cholecystectomy with a 1 cm common bile duct and a 0.9 cm common hepatic duct just felt to be secondary to the postcholecystectomy state. Currently the patient is lying in bed reporting that her abdominal pain has resolved. Review of Systems REVIEW OF SYSTEMS: CONSTITUTIONAL: Denies any fevers, chills, weight change or fatigue. CARDIOVASCULAR: Denies any chest pain, palpitations high or low blood pressures RESPIRATORY: Denies any shortness of breath, hemoptysis or cough. GENITOURINARY: No dysuria or hematuria. MUSCULOSKELETAL: No weakness reported. SKIN: Denies any new rashes or lesions, jaundice or pallor. PSYCHIATRIC: Denies any depression or anxiety. NEUROLOGY: Denies headache, denies any new focal deficits. EARS/NOSE/THROAT: No recent hearing change, congestion, nasal discharge or sore throat. EYES: No pain in eyes, discharge or change in vision. GASTROINTESTINAL: As per HPI. Past Medical History Past Medical History: Chest Pain / Angina, CVA/TIA, GERD/Reflux, Hyperlipidemia, Seizure Disorder, Thyroid Disorder, Vascular Disorder Additional Past Medical History / Comment(s): CVA "several last march", Chronic back pain,. last seizure 03/2017,PVD,"lt cerebral artery 100%" 09/20/17. several mini strokes History of Any Multi-Drug Resistant Organisms: None Reported Past Surgical History: Heart Catheterization With Stent Additional Past Surgical History / Comment(s): stents merly iliac artery 07/16. , COLONOSCOPY AND EGD Past Anesthesia/Blood Transfusion Reactions: Family History of Problems w/ Anesthesia Additional Past Anesthesia/Blood Transfusion Reaction / Comm: sister shakes with anesthesia for several days after Date of Last Stent Placement:: 06/2017 Past Psychological History: Anxiety, Depression Smoking Status: Current every day smoker Past Alcohol Use History: None Reported Past Drug Use History: None Reported - Past Family History Father Family Medical History: Cancer Additional Family Medical History / Comment(s): lung cancer Mother Family Medical History: Cancer, CVA/TIA Sister(s) Family Medical History: Cancer, Deep Vein Thrombosis (DVT), Pulmonary Embolus Additional Family Medical History / Comment(s): breast cancer Brother(s) Family Medical History: Cancer Additional Family Medical History / Comment(s): prostate cancer Medications and Allergies Home Medications Medication Instructions Recorded Confirmed Type Atorvastatin [Lipitor] 80 mg PO DAILY 11/24/16 03/06/19 History Ranitidine HCl [Zantac] 150 mg PO BID 11/24/16 03/06/19 History Clopidogrel [Plavix] 75 mg PO DAILY #0 09/21/17 03/06/19 Rx HYDROcodone/APAP 10-325MG [[place] 1 tab PO QID PRN 02/16/18 03/06/19 History 10-325] Metoprolol Tartrate [Lopressor] 12.5 mg PO BID 02/03/19 03/06/19 History levETIRAcetam [Keppra] 500 mg PO BID 02/03/19 03/06/19 History Allergies Allergy/AdvReac Type Severity Reaction Status Date / Time prochlorperazine Allergy CAN'T Verified 03/06/19 13:08 [From Compazine] REMEMBER REACTION Physical Exam Vitals: Vital Signs Temp Pulse Pulse Resp BP BP Pulse Ox 03/07/19 11:37 98.5 F 59 L 18 99/65 99 03/07/19 07:00 97.7 F 62 18 106/69 98 03/07/19 04:00 97.6 F 56 L 18 98/63 100 03/06/19 23:58 70 18 03/06/19 23:52 97.6 F 70 18 111/70 96 03/06/19 20:00 71 18 03/06/19 19:10 98.3 F 71 18 106/66 98 03/06/19 17:51 98.2 F 71 18 144/87 98 03/06/19 16:30 78 32 H 119/76 03/06/19 16:00 62 15 118/85 03/06/19 15:30 60 14 102/80 03/06/19 15:00 72 11 L 127/80 99 03/06/19 14:30 63 13 111/68 99 03/06/19 14:20 67 15 111/68 98 Intake and Output 03/06/19 03/07/19 03/07/19 22:59 06:59 14:59 Intake Total 222 222 Balance 222 222 Intake: Oral 222 222 Other: Voiding Method Toilet Toilet Toilet # Voids 1 1 1 On physical examination, patient appears comfortable in no apparent distress. HEAD: Normocephalic, atraumatic. EYES: No scleral icterus. No conjunctival injection. MOUTH: No lesions, tongue midline. NECK: Trachea midline, no gross abnormalities. CHEST: Decreased air entry in all lung sanz with no wheezing appreciated. HEART: S1-S2 appreciated. ABDOMEN: Soft, obese. Bowel sounds are positive. No organomegaly. No guarding or rigidity. EXTREMITIES: No pedal edema. SKIN: No rashes, no jaundice. NEUROLOGIC: Alert and oriented x3. No focal deficits. Results CBC & Chem 7: 03/07/19 06:01 03/07/19 06:01 Labs: Abnormal Lab Results - Last 24 Hours (Table) 03/07/19 03/07/19 03/07/19 Range/Units 06:01 06:01 10:32 Chloride 109 H (98-107) mmol/L BUN 18 H (7-17) mg/dL Glucose 100 H (74-99) mg/dL GGT 127 H (12-43) U/L Urine Appearance Cloudy H (Clear) Urine Nitrite Positive H (Negative) Ur Leukocyte Esterase Large H (Negative) Urine WBC 60 H (0-5) /hpf Urine Bacteria Occasional H (None) /hpf Urine Mucus Rare H (None) /hpf US - abdomen: report reviewed (Ultrasound of the abdomen with findings of a mildly dilated CBD of 1 cm with no choledocholithiasis seen felt to be secondary to the postcholecystectomy state.) Assessment and Plan (1) Elevated liver enzymes Narrative/Plan: 53-year-old female with multiple medical comorbidities including prior cholecystectomy who presented to the hospital due to epigastric abdominal pain and was found to have elevation in her liver enzymes. Patient reported 40-45 minutes of severe epigastric pain with radiation into her right upper extremity. Patient had associated nausea with no vomiting. He felt that the pain was similar to prior episodes of symptomatic cholelithiasis prior to cholecystectomy. Pain is currently resolved. She is tolerated diet. Denies any history of elevated liver enzymes in the past, alcohol abuse, IV drug use, or new medications. Ultrasound of the abdomen was significant for a common bile duct measuring 1 cm and a common hepatic duct measuring 0.9 cm felt to be secondary to the postcholecystectomy state. elevaion in liver enzymes is predominanty in a hepatocellular pattern withaST of 291, ALT 413 with a total bilirubin of 0.3 and alkaline phosphaase of 141. Unclear etiology, may be secondary to uncontrolled GERD, peptic ulcer disease, a gallstone which is passed through the common bile duct with MRCP ordered to rule out choledocholithiasis, or other etiology. Current Visit: Yes Status: Acute Code(s): R74.8 - ABNORMAL LEVELS OF OTHER SERUM ENZYMES SNOMED Code(s): 906428933 (2) Abdominal pain Current Visit: Yes Status: Acute Code(s): R10.9 - UNSPECIFIED ABDOMINAL PAIN SNOMED Code(s): 50242163 Plan: Supportive care Okay for diet Nothing by mouth after midnight, in case any intervention is needed Acute viral hepatitis panel pending MRCP ordered, patient has prior iliac stenting and radiology department alerted to check compatibility with MRI Repeat liver enzymes ordered for the morning If patient has further elevation in the liver enzymes which are concerning for choledocholithiasis or MRCP findings consistent with choledocholithiasis will discuss proceeding with ERCP, however if liver enzymes improve and patient remains asymptomatic or MRCP is negative for any findings of retained gallstones in the CBD patient can have diet advanced Will consider full liver serology pending patient's clinical course and labs Thank you for allowing us to participate in the care of the patient the GI service will continue to follow
[2019-03-07 21:33] LABS: Hepatitis B Surface AB- Quant 9.4 mIU/mL; Hepatitis B Surface Antibody Equivocal (Non-Reactive)
[2019-03-08] MEDS: HYDROcodone/APAP 10-325MG 1 EACH TAB PO PRN ×2 (00:57→07:36)
[2019-03-08 06:00] LABS: ALT 189 U/L (9-52); AST 59 U/L (14-36); African American GFR (CKD) >90 (>60 ml/min/1.73 sqM); Albumin 3.6 g/dL (3.5-5.0); Alkaline Phosphatase 97 U/L (38-126); Anion Gap 5 mmol/L; Bilirubin, Delta 0.2 mg/dL (0.0-0.2); Blood Urea Nitrogen 18 mg/dL (7-17); Calcium 9.9 mg/dL (8.4-10.2); Carbon Dioxide 29 mmol/L (22-30); Chloride 106 mmol/L (98-107); Glucose 119 mg/dL (74-99); Potassium 4.7 mmol/L (3.5-5.1); Sodium 140 mmol/L (137-145); Total Bilirubin 0.2 mg/dL (0.2-1.3); Total Protein 6.1 g/dL (6.3-8.2)
[2019-03-08] MEDS: FAMOTIDINE 20 MG TAB PO SCH (07:46)
[2019-03-08] MEDS: levETIRAcetam 500 MG TAB PO SCH (07:46)
[2019-03-08] MEDS: METOPROLOL TARTRATE 12.5 MG TAB PO SCH ×2 (07:46→07:48)
[2019-03-08] MEDS: CLOPIDOGREL 75 MG TAB PO SCH (07:46)
[2019-03-08] MEDS: CEPHALEXIN 500 MG CAP PO SCH (07:46)
--- NOTE | 2019-03-08 09:44 | P.PN ---
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 Also she has had 2 CVA's in the past and frequent TIA's, seizure disorder, dyslipidemia, cholecystectomy April 2018, bilateral iliac stenting and chronic nicotine dependence. She is seen and examined sitting up in bed in no acute distress. She continues to feel intermittent epigastric and upper abdominal discomfort. She denies chest pain, shortness of breath, dizziness or palpitations. She has been seen in consultation by GI and general surgery. She is scheduled for an MRCP today. Laboratory data reviewed, sodium 140, potassium 4.7, creatinine 0.72, AST 59, ALT 189 and GGT 127. Blood pressure 127/82 heart rate 63 afebrile and maintaining oxygen saturation on room air. Echocardiogram obtained reveals preserved LV systolic function with EF 55-60%, normal diastolic filling pattern and mild MR> GENERAL: This is a 53-year-old female in no apparent distress at the time of my examination. HEENT: Head is atraumatic, normocephalic. Pupils are equal, round. Sclerae anicteric. Conjunctivae are clear. Mucous membranes of the mouth are moist. Neck is supple. There is no jugular venous distention. No carotid bruit is heard. LUNGS: Clear to auscultation no wheezes, rales or rhonchi. No chest wall tenderness is noted on palpation or with deep breathing. Diminished bilaterally. HEART: Regular rate and rhythm without murmurs, rubs or gallops. S1 and S2 heard. EXTREMITIES: No evidence of peripheral edema and no calf tenderness noted. ASSESSMENT Chest pain, atypical for angina. Acute coronary event is ruled out. Elevated liver enzymes Significant peripheral vascular disease Iliac stents, bilateral. Maintained on plavix History of CVA and TIA in the past Dyslipidemia Seizure disorder Chronic nicotine dependence PLAN Stable from a cardiac perspective. Recommend outpatient stress testing. Smoking cessation recommended. We will continue to follow as needed. Nurse Practitioner note has been reviewed, I agree with a documented findings and plan of care. Patient was seen and examined. Objective - Vital Signs Vital signs: Vital Signs Temp 97.7 F 03/08/19 07:04 Pulse 63 03/08/19 08:00 Resp 18 03/08/19 08:00 BP 127/82 03/08/19 07:04 Pulse Ox 99 03/08/19 07:04 Intake & Output 03/07/19 03/08/19 03/08/19 18:59 06:59 18:59 Intake Total 462 Balance 462 Intake: Oral 462 Other: Voiding Method Toilet Toilet Toilet # Voids 1 1 - Labs CBC & Chem 7: 03/07/19 06:01 03/08/19 05:08 Labs: Abnormal Lab Results - Last 24 Hours (Table) 03/07/19 03/07/19 03/07/19 Range/Units 06:01 06:01 10:32 BUN (7-17) mg/dL Glucose (74-99) mg/dL GGT 127 H (12-43) U/L AST (14-36) U/L ALT (9-52) U/L Total Protein (6.3-8.2) g/dL Urine Appearance Cloudy H (Clear) Urine Nitrite Positive H (Negative) Ur Leukocyte Esterase Large H (Negative) Urine WBC 60 H (0-5) /hpf Urine Bacteria Occasional H (None) /hpf Urine Mucus Rare H (None) /hpf Hep Bs Antibody Equivocal H (Non-Reactive) 03/08/19 Range/Units 05:08 BUN 18 H (7-17) mg/dL Glucose 119 H (74-99) mg/dL GGT (12-43) U/L AST 59 H (14-36) U/L ALT 189 H (9-52) U/L Total Protein 6.1 L (6.3-8.2) g/dL Urine Appearance (Clear) Urine Nitrite (Negative) Ur Leukocyte Esterase (Negative) Urine WBC (0-5) /hpf Urine Bacteria (None) /hpf Urine Mucus (None) /hpf Hep Bs Antibody (Non-Reactive)
--- NOTE | 2019-03-08 10:01 | P.PN ---
Subjective Progress Note Date: 03/08/19 Principal diagnosis: elevated liver enzymes LFTs improved; TB 0.2. AST 59. ALT 189. AP 97. MRCP ordered. Ap improved. Objective - Vital Signs Vital signs: Vital Signs Temp 97.7 F 03/08/19 07:04 Pulse 63 03/08/19 07:04 Resp 18 03/08/19 07:04 BP 127/82 03/08/19 07:04 Pulse Ox 99 03/08/19 07:04 Intake & Output 03/07/19 03/08/19 03/08/19 18:59 06:59 18:59 Intake Total 462 Balance 462 Intake: Oral 462 Other: Voiding Method Toilet Toilet # Voids 1 1 - Exam General appearance: The patient is alert, oriented, in no acute distress. HET: Head is normocephalic and atraumatic. Pupils are equal and reactive. Oropharynx is clear without lesions. Neck: Supple without lymphadenopathy. Trachea midline. Heart: S1 S2. Regular rate and rhythm. Lungs: No crackles or wheezes are heard. Abdomen: Soft, mild midepigastric tenderness, nondistended with bowel sounds. No peritoneal signs. No palpable organomegaly or masses. Extremities: Normal skin color and turgor. No cyanosis, rash, ulceration, clubbing, or edema. Radial and pedal pulses are 2/4 bilaterally. Neurological: No focal deficits. Strength and sensation are grossly intact. - Labs CBC & Chem 7: 03/07/19 06:01 03/08/19 05:08 Labs: Abnormal Lab Results - Last 24 Hours (Table) 03/07/19 03/07/19 03/07/19 Range/Units 06:01 06:01 10:32 BUN (7-17) mg/dL Glucose (74-99) mg/dL GGT 127 H (12-43) U/L AST (14-36) U/L ALT (9-52) U/L Total Protein (6.3-8.2) g/dL Urine Appearance Cloudy H (Clear) Urine Nitrite Positive H (Negative) Ur Leukocyte Esterase Large H (Negative) Urine WBC 60 H (0-5) /hpf Urine Bacteria Occasional H (None) /hpf Urine Mucus Rare H (None) /hpf Hep Bs Antibody Equivocal H (Non-Reactive) 10/11/19 Range/Units 05:08 BUN 18 H (7-17) mg/dL Glucose 119 H (74-99) mg/dL GGT (12-43) U/L AST 59 H (14-36) U/L ALT 189 H (9-52) U/L Total Protein 6.1 L (6.3-8.2) g/dL Urine Appearance (Clear) Urine Nitrite (Negative) Ur Leukocyte Esterase (Negative) Urine WBC (0-5) /hpf Urine Bacteria (None) /hpf Urine Mucus (None) /hpf Hep Bs Antibody (Non-Reactive) Assessment and Plan (1) Elevated liver enzymes Narrative/Plan: Biochemical improvement Current Visit: Yes Status: Acute Code(s): R74.8 - ABNORMAL LEVELS OF OTHER SERUM ENZYMES SNOMED Code(s): 147246763 (2) Hx of cholecystectomy Current Visit: Yes Status: Acute Code(s): Z90.49 - ACQUIRED ABSENCE OF OTHER SPECIFIED PARTS OF DIGESTIVE TRACT SNOMED Code(s): 115770106 (3) Epigastric pain Current Visit: Yes Status: Acute Code(s): R10.13 - EPIGASTRIC PAIN SNOMED Code(s): 42060289 Plan: 1. MRCP. 2. LFTS improved continue to monitor. Assessment and plan of care d/w Dr. Romano
--- NOTE | 2019-03-08 11:04 | P.PN ---
Subjective Progress Note Date: 03/08/19 CHIEF COMPLAINT: elevated LFTs HISTORY OF PRESENT ILLNESS: Patient examined this morning at the bedside. She denies abdominal pain. Denies nausea or vomiting. AST 59. ALT 189. Alk phos 97. PHYSICAL EXAM: VITAL SIGNS: Reviewed. GENERAL: Well-developed in no acute distress. HEENT: No sclera icterus. Extraocular movements grossly intact. Moist buccal mucosa. Head is atraumatic, normocephalic. ABDOMEN: Soft. Nondistended. Nontender. Positive bowel sounds. No peritoneal signs. NEUROLOGIC: Alert and oriented. Cranial nerves II through XII grossly intact. ASSESSMENT: 1. Chest pain 2. Elevated LFTs, improving 3. History of cholecystectomy PLAN: GI following. MRCP ordered No surgical intervention recommended We will sign off. Please re-consult if needed Nurse practitioner note has been reviewed by physician. Signing provider agrees with the documented findings, assessment, and plan of care. Objective - Vital Signs Vital signs: Vital Signs Temp 97.7 F 03/08/19 07:04 Pulse 63 03/08/19 08:00 Resp 18 03/08/19 08:00 BP 127/82 03/08/19 07:04 Pulse Ox 99 03/08/19 07:04 Intake & Output 03/07/19 03/08/19 03/08/19 18:59 06:59 18:59 Intake Total 462 Balance 462 Intake: Oral 462 Other: Voiding Method Toilet Toilet Toilet # Voids 1 1 2 - Labs CBC & Chem 7: 03/07/19 06:01 03/08/19 05:08 Labs: Abnormal Lab Results - Last 24 Hours (Table) 03/07/19 03/07/19 03/08/19 Range/Units 06:01 06:01 05:08 BUN 18 H (7-17) mg/dL Glucose 119 H (74-99) mg/dL GGT 127 H (12-43) U/L AST 59 H (14-36) U/L ALT 189 H (9-52) U/L Total Protein 6.1 L (6.3-8.2) g/dL Hep Bs Antibody Equivocal H (Non-Reactive)
[2019-03-08 11:06] VITALS: BP 114/75; PULSE 68; TEMP 98.1
[2019-03-08 12:31] LABS: Hepatitis A Antibody IgM Non-Reactive (Non-Reactive); Hepatitis B Core IgM Non-Reactive (Non-Reactive); Hepatitis B Surface Antigen Non-Reactive (Non-Reactive); Hepatitis C IgG Antibody Non-Reactive (Non-Reactive)
--- NOTE | 2019-03-08 12:45 | P.DS ---
Providers Date of admission: 03/06/19 16:46 Expected date of discharge: 03/08/19 Attending physician: Massimo Porter MD Consults: 03/06/19 16:47 Consult Physician Urgent Consulting Provider: [facility] Consult Reason/Comments: chest pain Do you want consulting provider notified?: Yes 03/07/19 11:10 Consult Physician Routine Consulting Provider: Carlos Quarles Consult Reason/Comments: epigastric pain, elevated LFTs Do you want consulting provider notified?: Yes 03/07/19 13:04 Consult Physician Routine Consulting Provider: Tanner Lew Consult Reason/Comments: elevated LFTs Do you want consulting provider notified?: Yes Primary care physician: [facility] Course: Final Diagnoses: (1) Epigastric pain Current Visit: Yes Status: Acute Code(s): R10.13 - EPIGASTRIC PAIN SNOMED Code(s): 36001778 (2) Peripheral vascular disease Current Visit: Yes Status: Acute Code(s): I73.9 - PERIPHERAL VASCULAR DISEASE, UNSPECIFIED SNOMED Code(s): 534968487 (3) Hypertension Current Visit: Yes Status: Acute Code(s): I10 - ESSENTIAL (PRIMARY) HYPERTENSION SNOMED Code(s): 30461732 (4) History of stroke Current Visit: Yes Status: Acute Code(s): Z86.73 - PRSNL HX OF TIA (TIA), AND CEREB INFRC W/O RESID DEFICITS SNOMED Code(s): 893662064 (5) Hyperlipidemia Current Visit: Yes Status: Acute Code(s): E78.5 - HYPERLIPIDEMIA, UNSPECIFIED SNOMED Code(s): 11023921 (6) Chest pain Current Visit: Yes Status: Acute Code(s): R07.9 - CHEST PAIN, UNSPECIFIED SNOMED Code(s): 84202370 (7) Seizure disorder Current Visit: No Status: Acute Code(s): G40.909 - EPILEPSY, UNSP, NOT INTRACTABLE, WITHOUT STATUS EPILEPTICUS SNOMED Code(s): 626259889 (8) Elevated AST (SGOT) Current Visit: Yes Status: Acute Code(s): R74.0 - NONSPEC ELEV OF LEVELS OF TRANSAMNS & LACTIC ACID DEHYDRGNSE SNOMED Code(s): 120750550 (9) Elevated ALT measurement Current Visit: Yes Status: Acute Code(s): R74.0 - NONSPEC ELEV OF LEVELS OF TRANSAMNS & LACTIC ACID DEHYDRGNSE SNOMED Code(s): 223206542 (10) Elevated alkaline phosphatase level Current Visit: Yes Status: Acute Code(s): R74.8 - ABNORMAL LEVELS OF OTHER SERUM ENZYMES SNOMED Code(s): 487536968 (11) acute cystitis, on Keflex Hospital course: Micki Tsang is a 53 yo F with PMH of peripheral vascular disease with iliac stenting, CVA, TIA, tobacco abuse who presented to the ED after experiencing sudden onset epigastric pain radiating into her RUE. She states she was sitting down before eating lunch when she began to experience a aching sharp pain in her upper abdomen moving into her R arm. She denies experiencing chest pain, shortness of breath, nausea, diaphoresis or palpitations. She has no previous history of heart disease but did experience a TIA approx 1 month ago. Her PCP had recommended an outpatient stress test but she had put it off. In the ED her vitals were stable, WBC 6.8, AST, ALT and Alk phos significantly elevated. Trop negative x3. Abdominal US demonstrated cholec ystectomy and dilation of CBD. Evaluated by multiple consults, cardiology, surgery, GI. Cardiology. Chest pain. Trop and EKG negative, ACS ruled out. Cardiology recommended outpatient stress test. Epigastric pain, elevated LFTs. Abd US with enlarged CBD, liver unremarkable. Hepatitis panel, ferritin, GGT.Consulted surgery with no surgical intervention recommended at this time. Evaluated by GI, initially scheduled for inpatient MRCP. Due to conflict an appointment schedule with [facility] neurovascular surgeon, patient insisting on outpatient MRCP, attempting to leave AMA. MRCP scheduled for outpatient. LFTs improved. Denies abdominal pain. No nausea or vomiting. Significant clinical improvement. Cleared by all consults for discharge. Patient is being discharged home in a stable condition with guarded prognosis. General: Alert and oriented 3, no acute distress Lungs: normal respiratory effort, no wheezes or rales CV: Regular rate and rhythm, no murmur. Peripheral pulses 2+. Abdomen: soft, nondistended, no organomegaly, positive bowel sounds Neuro: No focal deficits The impression and plan of care has been dictated as directed. : I performed a history and examination of this patient, discussed the same with the dictator. I agree with the dictator's note ,documented as a scribe. Any additional findings or plans will be noted. Patient Condition at Discharge: Stable Plan - Discharge Summary Discharge Rx Participant: No New Discharge Prescriptions: New Cephalexin [Keflex] 500 mg PO BID #6 cap Continue Ranitidine HCl [Zantac] 150 mg PO BID Atorvastatin [Lipitor] 80 mg PO DAILY Clopidogrel [Plavix] 75 mg PO DAILY #0 HYDROcodone/APAP 10-325MG [[place]ica 10-325] 1 tab PO QID PRN PRN Reason: Pain levETIRAcetam [Keppra] 500 mg PO BID Metoprolol Tartrate [Lopressor] 12.5 mg PO BID Discharge Medication List Atorvastatin [Lipitor] 80 mg PO DAILY 11/24/16 [History] Ranitidine HCl [Zantac] 150 mg PO BID 11/24/16 [History] Clopidogrel [Plavix] 75 mg PO DAILY #0 09/21/17 [Rx] HYDROcodone/APAP 10-325MG [[place] 10-325] 1 tab PO QID PRN 02/16/18 [History] Metoprolol Tartrate [Lopressor] 12.5 mg PO BID 02/03/19 [History] levETIRAcetam [Keppra] 500 mg PO BID 02/03/19 [History] Cephalexin [Keflex] 500 mg PO BID #6 cap 03/08/19 [Rx] Follow up Appointment(s)/Referral(s): Kiera Porter DO [Primary Care Provider] - 1-2 days Kentrell Hernadez MD [STAFF PHYSICIAN] - 03/21/19 4:15 pm Activity/Diet/Wound Care/Special Instructions: Please call MRI to set up an appointment for your MRCP at [phone] Discharge Disposition: HOME SELF-CARE
== END 2019-03-08 13:31 | disposition home or self-care (01) ==
LOC: EC 12:26 → 1SOBS 16:46
PROVIDERS: ADMIT Family Medicine; ATTEND Family Medicine
DX: R07.89 Other chest pain (principal); R10.13 Epigastric pain; I10 Essential (primary) hypertension; N30.00 Acute cystitis without hematuria; K83.8 Other specified diseases of biliary tract; K21.9 Gastro-esophageal reflux disease without esophagitis; R74.0 Nonspecific elevation of levels of transaminase and lactic acid dehydrogenase [LDH]; R74.8 Abnormal levels of other serum enzymes; G40.909 Epilepsy, unspecified, not intractable, without status epilepticus; E78.5 Hyperlipidemia, unspecified; I73.9 Peripheral vascular disease, unspecified; I65.21 Occlusion and stenosis of right carotid artery; I65.03 Occlusion and stenosis of bilateral vertebral arteries; I66.02 Occlusion and stenosis of left middle cerebral artery; G89.29 Other chronic pain; M54.9 Dorsalgia, unspecified; F41.9 Anxiety disorder, unspecified; F32.9 Major depressive disorder, single episode, unspecified; F17.200 Nicotine dependence, unspecified, uncomplicated; Z79.891 Long term (current) use of opiate analgesic; Z79.02 Long term (current) use of antithrombotics/antiplatelets; Z79.83 Long term (current) use of bisphosphonates; Z79.899 Other long term (current) drug therapy; Z88.8 Allergy status to other drugs, medicaments and biological substances; Z90.49 Acquired absence of other specified parts of digestive tract; Z87.11 Personal history of peptic ulcer disease; Z95.820 Peripheral vascular angioplasty status with implants and grafts; Z95.5 Presence of coronary angioplasty implant and graft; Z86.73 Personal history of transient ischemic attack (TIA), and cerebral infarction without residual deficits; Z80.3 Family history of malignant neoplasm of breast; Z80.1 Family history of malignant neoplasm of trachea, bronchus and lung; Z82.49 Family history of ischemic heart disease and other diseases of the circulatory system; Z80.42 Family history of malignant neoplasm of prostate
CPT/HCPCS: 93005 ×2; 96374; 99285; 36415; 93306; 86803; 83880; 80053 ×2; 80048; 80074; 82728; 82248; 82977; 83690; 83735; 84484 ×2; 85025 ×2; 85610; 85730; 86706; 81001; 86708; 71046; 76705; G0378 ×3; J2270

== ENCOUNTER → 2019-03-06 | Outpatient (CLI) | payer OTHER ==
--- NOTE | 2019-03-06 12:58 | US ---
EXAMINATION TYPE: US thyroid st tissue head/neck DATE OF EXAM: 03/06/2019 COMPARISON: US 2019 and 2018 CLINICAL HISTORY: E04.1 Thyroid Nodule. Follow up thyroid nodules GLAND SIZE: Right Lobe: 5.6 x 1.3 x 2.4 cm enlarged Overall Parenchyma: homogenous Left Lobe: 4.9 x 1.2 x 1.7 cm Overall Parenchyma: homogeneous Isthmus Thickness: 0.2 cm NODULES RIGHT: # of nodules measured on right: 1 1. 0.6 X 0.3 x 0.4 cm hypoechoic solid nodule at the superior/mid pole with well-defined margins. T his nodule is wider than tall and shows intranodular vascularity. Prior size: 0.6 x 0.4 x 0.4 cm LEFT: # of nodules measured on left: 1 1. 0.9 X 0.6 x 0.8 cm hypoechoic mixed nodule at the mid/inferior pole with well-defined margins. T his nodule is wider than tall and shows intranodular vascularity. Prior size: 1.0 x 0.8 x 0.5 cm ISTHMUS: # of nodules measured in the isthmus: 0 1. nodule seen on previous exam in 2018 not seen on today's exam Bilateral neck scanned, no evidence of lymphadenopathy. IMPRESSION: Similar size of the previously seen bilateral thyroid nodules with nonvisualization of th e previously seen isn't thyroid nodule. Dedicated thyroid nodules also appear similar to the prior ex am of 07/03/2017. Findings relate to a multinodular goiter as the thyroid is enlarged.
== END | disposition home or self-care (01) ==
LOC: RADUSWWP 11:58
PROVIDERS: ATTEND Surgery
DX: E04.1 Nontoxic single thyroid nodule (principal)
CPT/HCPCS: 76536

== ENCOUNTER → 2019-07-15 | Outpatient (CLI) | payer OTHER ==
--- NOTE | 2019-07-16 09:05 | MM ---
Reason for exam: screening (asymptomatic). Last mammogram was performed 1 year and 9 months ago. History: Family history of breast cancer in mother at age 55, breast cancer in maternal grandmother at age 50, breast cancer in paternal aunt at age 60, and breast cancer in sister. Left US Cyst Aspiration of the left breast, August 03, 2005. Physical Findings: A clinical breast exam by your physician is recommended on an annual basis and results should be correlated with mammographic findings. MG Screening Mammo w CAD Bilateral CC and MLO view(s) were taken. Prior study comparison: October 04, 2017, bilateral MG screening mammo w CAD. July 24, 2012, bilateral digital screening mammo w/CAD. The breast tissue is heterogeneously dense. This may lower the sensitivity of mammography. No significant changes when compared with prior studies. ASSESSMENT: Negative, BI-RAD 1 RECOMMENDATION: Routine screening mammogram of both breasts in 1 year.
== END | disposition home or self-care (01) ==
LOC: RADMAMWWP 07:44
PROVIDERS: ATTEND Family Medicine
DX: Z12.31 Encounter for screening mammogram for malignant neoplasm of breast (principal)
CPT/HCPCS: 77067

== ENCOUNTER → 2022-06-06 | Outpatient (CLI) | payer MEDICARE, OTHER ==
--- NOTE | 2022-06-06 15:46 | MM ---
Reason for Exam: Clinical finding. Last mammogram was performed 2 year(s) and 11 month(s) ago. Indicated Problems: Pain. Patient History: Menarche at age 10. First Full-Term at age 25. Postmenopausal. Maternal grandmother had breast cancer, age 50. Paternal aunt had breast cancer, age 60. Paternal cousin had breast cancer under age 50. Sister had breast cancer. Risk Values: Kathy 5 year model risk: 2.8%. NCI Lifetime model risk: 16.2%. Tissue Density: The breast tissue is heterogeneously dense. This may lower the sensitivity of mammography. Findings: Analyzed By CAD. There are benign-appearing vascular calcifications redemonstrated bilaterally. No suspicious new mass or worrisome group of microcalcification in either breast. Overall Assessment: Negative, BI-RAD 1 Management: Screening Mammogram of both breasts in 1 year. Manage patient's symptoms of bilateral breast pain on clinical basis. Results were given to the patient verbally at the time of exam. Electronically signed and approved by: Darinel Mcgovern M.D.
== END | disposition home or self-care (01) ==
LOC: RADMAMWWP 15:18
PROVIDERS: ATTEND Family Medicine
DX: N64.4 Mastodynia (principal); Z78.0 Asymptomatic menopausal state; Z80.3 Family history of malignant neoplasm of breast
CPT/HCPCS: 77066; G0279; 77062

== ENCOUNTER → 2023-03-03 | Outpatient (CLI) | payer MEDICARE, OTHER ==
--- NOTE | 2023-03-06 09:16 | CT ---
EXAMINATION TYPE: CT abdomen pelvis w con DATE OF EXAM: 03/03/2023 COMPARISON: 01/29/2018 HISTORY: ovarian cysts and blockages CT DLP: 429.9 mGycm Automated exposure control for dose reduction was used. CONTRAST: CT scan of the abdomen pelvis is performed with IV Contrast, patient injected with 100 cc mL of Isovu e 300. FINDINGS- LUNG BASES- No significant abnormality is appreciated. Mild emphysematous changes. Coronary artery calcification noted. There is a small hiatal hernia. LIVER/GB- there is mild intrahepatic biliary ductal dilation and extrahepatic dilation with the CBD measuring 11 mm likely related to postcholecystectomy status. PANCREAS- No gross abnormality is seen. SPLEEN- No gross abnormality is seen. ADRENALS- No gross abnormality is seen. KIDNEYS/BLADDER-multiple bilateral hypodensities within the kidneys too small to characterize. Most l ikely on the basis of renal cysts. BOWEL- bowel gas pattern nonspecific with no obstruction. Mild changes of diverticulosis. Small duod enal diverticulum. Small hiatal hernia. LYMPH NODES- No greater than 1cm abdominal or pelvic lymph nodes are appreciated. OSSEOUS STRUCTURES- hypertrophic and degenerative changes of the spine. Large Tarlov cysts involving the sacrum. Bilateral hip arthropathy. No free fluid. No free air. OTHER- bilateral iliac artery stents appear to be patent with mild to moderate atherosclerotic del rosario e of the aorta. Bladder distends normally. There is an abnormal area of a lobulated density involving the uterine fundus. IMPRESSION- 1. Lobulated uterine contour recommend follow-up ultrasound. 2. Postcholecystectomy with mild intrahepatic and extra hepatic biliary ductal dilation. 3. Small hiatal hernia.
== END | disposition home or self-care (01) ==
LOC: RADCTMAIN 14:44
PROVIDERS: ATTEND Family Medicine
DX: N83.8 Other noninflammatory disorders of ovary, fallopian tube and broad ligament (principal); K44.9 Diaphragmatic hernia without obstruction or gangrene; K83.8 Other specified diseases of biliary tract; Z90.49 Acquired absence of other specified parts of digestive tract
CPT/HCPCS: 74177; Q9967

== ENCOUNTER → 2023-05-04 | Outpatient (CLI) | payer MEDICARE, OTHER ==
--- NOTE | 2023-05-04 15:01 | CTL ---
EXAMINATION TYPE: CT Low Dose Lung DATE OF EXAM ORDERED: 05/04/2023 HISTORY: Long-term tobacco use. Lung cancer screening CT DLP: 43.[address] CTDI: 1.2 mGy Automated exposure control for dose reduction was used. SCREENING VISIT: Baseline COMPARISON: None TECHNIQUE: Low dose computed tomography scan was performed through the chest at 1 mm thick sections a nd reconstructed images in multiple planes at 1 mm and [address] DIAGNOSTIC QUALITY: Satisfactory FINDINGS: LUNG NODULES: Present, detailed below: A few scattered small nodules. For reference 3 mm anterior sup erior right lower lobe nodule axial image 134. No greater than 5 mm noncalcified pulmonary nodules ar e seen. LUNGS: COPD: Severity: Mild to borderline moderate in the upper lungs Fibrosis: Severity: None Lymph nodes: None Other findings: None RIGHT PLEURAL SPACE: Effusion: None Calcification: None Thickening: None Pneumothorax: None LEFT PLEURAL SPACE: Effusion: None Calcification: None Thickening: None Pneumothorax: None HEART: Heart Size: Normal Coronary Calcification: Severe three-vessel coronary artery cavitation and/or stents. Pericardial Effusion: None OTHER FINDINGS: Upper abdomen: Incidental benign calcification in the liver axial image 58 series 5 Bony thorax: Dextroconvex scoliosis centered in the midthoracic spine is present. Supraclavicular region: None Other: None IMPRESSION: Occasional tiny nodule. No significant greater than [address] LUNG RAD AND CT CHEST RECOMMENDATION: Lung-Rad 2 Benign Appearance or Behavior: Continue annual sc reening with LDCT in 12 months. S Modifier (other clinically significant findings): S Severe three-vessel coronary artery calcification and/or stents should be correlated clinically.
== END | disposition home or self-care (01) ==
LOC: RADCTMAIN 14:16
PROVIDERS: ATTEND Family Medicine
DX: Z12.2 Encounter for screening for malignant neoplasm of respiratory organs (principal); F17.210 Nicotine dependence, cigarettes, uncomplicated; R91.1 Solitary pulmonary nodule
CPT/HCPCS: 71271

== ENCOUNTER → 2023-08-11 | Outpatient (CLI) | payer MEDICARE, OTHER ==
--- NOTE | 2023-08-11 18:28 | CT ---
EXAMINATION TYPE: CT angio head neck CT DLP: 1356.1 mGycm, Automated exposure control for dose reduction was used. DATE OF EXAM: 08/11/2023 3:24 PM COMPARISON: 09/20/2017. CLINICAL INDICATION:Female, 58 years old with history of I65.03 OCCLUSION AND STENOSIS OF BILATERAL V ERTEBR; PHH, pre-op, hx of seizures, c/o dizziness TECHNIQUE: Axially acquired helical CT angiogram of the head and neck was obtained with contrast. Axi al images are supplemented with 3D reconstructions and MIP images which were post-processed at an in dependent workstation. NASCET criteria used. Contrast used:65cc mL of Isovue 370 without and with IV Contrast, Oral contrast used: None. FINDINGS: CTA HEAD: No evidence of acute intracranial hemorrhage, mass effect, or midline shift. The ventricles, sulci, a nd cisterns are unremarkable. The visualized portions of the internal carotid arteries, middle cerebral arteries, anterior cerebral arteries, and posterior cerebral arteries are patent. The basilar and vertebral arteries are patent. CTA NECK: Right Carotid System: The common carotid artery and external carotid artery are patent. The carotid bifurcation demonstrate s no evidence of hemodynamically significant stenosis. The remaining portions of the internal carotid artery demonstrate normal size without significant narrowing. Left Carotid System: The common carotid and external carotid arteries are patent. There is less than 25% stenosis at the c arotid bifurcation secondary to calcified/noncalcified plaque. The rest of the internal carotid arter y is patent. Vertebral arteries are patent without evidence hemodynamically significant stenosis. There is a three-vessel aortic arch. The origins of the great vessels are patent. No evidence of hemo dynamically significant stenosis. Upper thorax: IMPRESSION: 1. No evidence of dissection of the cervical internal carotid arteries or vertebral arteries or any e vidence of significant stenosis at the carotid bifurcations. 2. No evidence of intracranial high-grade stenosis or intracranial aneurysm.
== END | disposition home or self-care (01) ==
LOC: RADCTMAIN 14:26
PROVIDERS: ATTEND Neurological Surgery
DX: Z01.818 Encounter for other preprocedural examination (principal); I65.03 Occlusion and stenosis of bilateral vertebral arteries; R42 Dizziness and giddiness; Z86.69 Personal history of other diseases of the nervous system and sense organs
CPT/HCPCS: 70496; 70498; Q9967

== ENCOUNTER → 2024-04-18 | Outpatient (CLI) | payer MEDICARE, OTHER ==
--- NOTE | 2024-04-19 08:15 | MM ---
Reason for Exam: Screening (asymptomatic). Last mammogram was performed 1 year(s) and 10 month(s) ago. Patient History: Menarche at age 10. First Full-Term at age 25. Postmenopausal. Maternal grandmother had breast cancer, age 50. Paternal aunt had breast cancer, age 60. Paternal cousin had breast cancer under age 50. Sister had breast cancer. Risk Values: Kathy 5 year model risk: 3.0%. NCI Lifetime model risk: 15.5%. Prior Study Comparison: 10/04/2017 Bilateral Screening Mammogram, [facility]. 07/15/2019 Bilateral Screening Mammogram, [facility]. 06/06/2022 Bilateral MG 3D diag mammo w/cad BRETT, [facility]. Tissue Density: The breasts are heterogeneously dense, which may obscure small masses. Findings: Analyzed By CAD. There is no suspicious group of microcalcifications or new suspicious mass in either breast. Overall Assessment: Negative, BI-RAD 1 Management: Screening Mammogram of both breasts in 1 year. . Patient should continue monthly self-breast exams. A clinical breast exam by your physician is recommended on an annual basis. This exam should not preclude additional follow-up of suspicious palpable abnormalities. Note on Kathy scores and lifetime risk: 1. A Kathy score greater than 3% is considered moderate risk. If this is the case, consider specialist referral to assess eligibility for a risk reducing agent. 2. If overall lifetime risk for the development of breast cancer is 20% or higher, the patient may qualify for future screening with alternating mammogram and breast MRI. [facility], , 04/19/2024 8:12 AM. Electronically signed and approved by: Howard Jacobo M.D. Radiologis
== END | disposition home or self-care (01) ==
LOC: RADMAMWWP 14:25
PROVIDERS: ATTEND Family Medicine
DX: Z12.31 Encounter for screening mammogram for malignant neoplasm of breast (principal); Z78.0 Asymptomatic menopausal state; Z80.3 Family history of malignant neoplasm of breast; R92.333 Mammographic heterogeneous density, bilateral breasts
CPT/HCPCS: 77063; 77067